=== PATIENT | female | born 1925 | race Caucasian/White ===

== ENCOUNTER 2017-01-14 08:10 | Observation (INO) | payer MEDICARE, OTHER ==
[~2017-01-14] VITALS: Ht 160 cm; Wt 56.9 kg
[~2017-01-14 08:10] MED LIST: BRIM.2%O OU; CITA-48 PO; DORZ1SOL2 OD; ENOX40P SQ; LEVO.05 PO; METO50TA PO; QUET300 PO; SENN8.6T15 PO; TRAV0.00 EACH EYE
[2017-01-14 08:18] VITALS: BP 173/107; PULSE 89; RESP 16; O2SAT 99
[2017-01-14] MEDS ORDERED: ONDANSETRON ODT 4 MG TAB PO ONE (08:45)
[2017-01-14] MEDS ORDERED: oxyCODONE/ACETAMINOPHEN 5 MG/325 MG TAB PO ONE (08:45)
[2017-01-14] MEDS ORDERED: CRANCAP2 PO (09:06)
[2017-01-14] MEDS ORDERED: LEVO75TA3 PO (09:06)
[2017-01-14] MEDS ORDERED: DORZ2SOL15 EACH EYE (09:06)
[2017-01-14] MEDS ORDERED: LATA0.002 EACH EYE (09:06)
[2017-01-14] MEDS ORDERED: CLON0.2D T-DERMAL (09:06)
[2017-01-14] MEDS ORDERED: BRIM0.2S4 EACH EYE (09:06)
[2017-01-14] MEDS ORDERED: TYLE325T PO ×2 (09:06)
[2017-01-14] MEDS ORDERED: DICL50TA PO (09:06)
[2017-01-14] MEDS ORDERED: HYDR-3133 PO (09:06)
[2017-01-14] MEDS ORDERED: MELA5 PO (09:06)
[2017-01-14] MEDS ORDERED: SENN8.6T36 PO (09:06)
[2017-01-14] MEDS ORDERED: CELE40TA PO (09:06)
[2017-01-14] MEDS ORDERED: LORA-392 PO (09:06)
[2017-01-14] MEDS ORDERED: METO100T PO (09:06)
[2017-01-14] MEDS ORDERED: FERR325T18 PO (09:06)
[2017-01-14] MEDS ORDERED: CLON.1 PO (09:06)
[2017-01-14] MEDS ORDERED: DULC10SU3 RECTAL (09:06)
[2017-01-14] MEDS ORDERED: REST15CA PO (09:06)
--- NOTE | 2017-01-14 09:08 | PD ---
HPI Chief Complaint: Fall Time Seen by Provider: 08:24 Travel History International Travel<30 days: No Contact w/Intl Traveler<30days: No Traveled to known affect area: No History of Present Illness HPI Patient is an 89-year-old female from [facility], presents to the emergency room with complaints of mechanical fall. Patient reports that she was trying to use the restroom today, reports that she fell forward today and landed on her knees as well as her right shoulder. Patient complains of pain to her right arm as well as her right knee. Patient reports that she did hit her head, denies loss of consciousness. Patient currently is not on any anticoagulants. Patient with no chest pain or shortness of breath at this time. She with no abdominal pain, nausea or vomiting. Patient also denies pelvic pain. PFSH Past Medical History Arthritis: Yes (HANDS) Asthma: No Autoimmune Disease: No Anxiety: Yes Heart Rhythm Problems: No Cancer: No Cardiovascular Problems: Yes High Cholesterol: No Chest Pain: No Congestive Heart Failure: No COPD: No Cerebrovascular Accident: No Diabetes: No Endocrine: Yes GERD: No Glaucoma: Yes Genitourinary: Yes (URINARY INCONTINENCE, UTI'S) Headaches: Yes Hiatal Hernia: No Hypertension: Yes Immune Disorder: No Kidney Stones: No Musculoskeletal: Yes Neurologic: Yes Psychiatric: Yes Reproductive: No Respiratory: Yes Migraines: Yes Seizures: No Shingles: Yes Sleep Apnea: No Thyroid Disease: Yes (HYPOTHYROIDISM) Ulcer: No Menopausal: Yes : 3 Para: 3 Past Surgical History Abdominal Surgery: No AICD: No Arteriovenous Shunt: No Cardiac Surgery: No Eye Surgery: Yes (IMPLANT, CATARACTS) Genitourinary Surgery: No Gynecologic Surgery: No Insulin Pump: No Joint Replacement: Yes Oral Surgery: No Pacemaker: No Thoracic Surgery: No Other Surgery: Yes Social History Alcohol Use: No Tobacco Use: No (QUIT IN HER LATE FORTIES: SMOKED FOR ONE YEAR ONLY) Substance Use: No Allergies-Medications (Allergen,Severity, Reaction): Coded Allergies: codeine (Unverified Allergy, Intermediate, Nausea/Vomiting, 01/14/17) nitrofurantoin (Unverified Allergy, Unknown, chest pain, 01/14/17) penicillin G (Unverified Adverse Reaction, Intermediate, headache, ) Reported Meds & Prescriptions Reported Meds & Active Scripts Active Reported Brimonidine Opth Drops (Brimonidine Tartrate) 0.2% Soln 1 Drop EACH EYE BID Latanoprost Opth Drops (Latanoprost) 0.005% Drops 1 Drop EACH EYE HS Refrigerate until opened. Dorzolamide-Timolol Opth Drops 22.3-6.8 Mg/Ml Soln 1 Drop EACH EYE BID Dulcolax Supp (Bisacodyl) 10 Mg Supp 10 Mg RECTAL DAILY PRN Tylenol (Acetaminophen) 325 Mg Tab 650 Mg PO Q4H PRN Tylenol (Acetaminophen) 325 Mg Tab 325 Mg PO Q4H PRN Senna-Tabs (Sennosides) 8.6 Mg Tab 2 Tab PO BID Restoril (Temazepam) 15 Mg Cap 15 Mg PO HS PRN Metoprolol Tartrate 100 Mg Tab 100 Mg PO BID Melatonin 5 Mg Tab 5 Mg PO HS Levothyroxine (Levothyroxine Sodium) 75 Mcg Tab 75 Mcg PO DAILY Hydroxyzine HCl 25 Mg Tab 25 Mg PO BID Ferrous Sulfate 325 Mg (65 Mg Iron) Tablet 325 Mg PO BIDPC Cranberry Urinary Comfort (Vitamins C & E) 1 Cap 1 Cap PO DAILY Clonidine 168 HR Patch (Clonidine HCl) 0.2 Mg/24 Hr Patch 1 Patch T-DERMAL Q7D Celexa (Citalopram Hydrobromide) 40 Mg Tab 40 Mg PO DAILY Catapres (Clonidine) 0.1 Mg Tab 0.1 Mg PO BID PRN Diclofenac Potassium 50 Mg Tab 50 Mg PO TID PRN Ativan (Lorazepam) 0.5 Mg Tab 0.25 Mg PO Q8H PRN Review of Systems General / Constitutional: No: Fever Eyes: No: Visual changes HENT: No: Headaches Cardiovascular: No: Chest Pain or Discomfort Respiratory: No: Shortness of Breath Gastrointestinal: No: Abdominal Pain Genitourinary: No: Dysuria Musculoskeletal: Positive: Limited ROM, Pain Skin: No Rash Neurologic: No: Weakness Psychiatric: No: Depression Endocrine: No: Polydipsia Hematologic/Lymphatic: No: Easy Bruising Physical Exam Narrative GENERAL: Moderate distress SKIN: Focused skin assessment warm/dry. HEAD: Normocephalic. Patient with abrasion to nasal bridge EYES: Pupils equal and round. No scleral icterus. No injection or drainage. ENT: No nasal bleeding or discharge. Mucous membranes pink and moist. NECK: Trachea midline. No JVD. CARDIOVASCULAR: Regular rate and rhythm. No murmur appreciated. RESPIRATORY: No accessory muscle use. Clear to auscultation. Breath sounds equal bilaterally. GASTROINTESTINAL: Abdomen soft, non-tender, nondistended. Hepatic and splenic margins not palpable. Pelvis is stable MUSCULOSKELETAL:. No clubbing. No cyanosis. No edema. Patient with pain to the right shoulder, right humerus, right elbow, right forearm, unable to range of motion her upper extremity due to pain. There is no obvious deformities or open fractures, pulses intact, neurovascular intact. LUE: Patient with no obvious fractures, no obvious deformities, patient does have pain with range of motion to her left elbow, pulses intact, neurovascularly intact. Left lower extremity: Patient with normal range of motion to left hip, left knee , left ankle, no obvious fractures, pulses intact, neurovascular intact Right lower extremity: Patient with normal range of motion to right hip, pain with range of motion to right knee, normal range of motion to left ankle, no obvious open fractures, pulses intact, neurovascularly intact. NEUROLOGICAL: Awake and alert. No obvious cranial nerve deficits. Motor grossly within normal limits. Normal speech. PSYCHIATRIC: Appropriate mood and affect; insight and judgment normal. Data Data Last Documented VS Vital Signs Date Time Temp Pulse Resp B/P (MAP) Pulse Ox O2 Delivery O2 Flow Rate FiO2 01/14/17 12:28 17 01/14/17 10: 92 143/64 (90) 98 Room Air Orders Orders Chest, Single Ap (01/14/17 08:24) Pelvis, Ap Only (Routine) (01/14/17 08:24) Ct Brain W/O Iv Contrast(Rout) (01/14/17 08:24) Ct Cerv Spine W/O Contrast (01/14/17 08:24) Oxycodone-Acetamin 5-325 Mg (Percocet (01/14/17 08:45) Humerus (Min 2vws) (01/14/17 ) Knee, Complete (4vws) (01/14/17 ) Ondansetron Odt (Zofran Odt) (01/14/17 08:45) Shoulder, Limited(2vws) (01/14/17 ) Elbow, Limited (Ap&Lat) (01/14/17 ) Elbow, Limited (Ap&Lat) (01/14/17 ) Basic Metabolic Panel (Bmp) (01/14/17 09:50) Complete Blood Count With Diff (01/14/17 09:50) Prothrombin Time / Inr (Pt) (01/14/17 09:50) Act Partial Throm Time (Ptt) (01/14/17 09:50) Iv Access Insert/Monitor (01/14/17 09:50) Ecg Monitoring (01/14/17 09:50) Morphine Inj (Morphine Inj) (01/14/17 10:00) Oximetry (01/14/17 09:50) Knee, Ltd (1 Or 2vws) (01/14/17 ) Forearm, One View (01/14/17 08:38) Urinalysis - C+S If Indicated (01/14/17 12:12) Splinting (01/14/17 ) Canvas Knee Splint (Cks) (01/14/17 ) Canvas Knee Splint (Cks) (01/14/17 ) Morphine Inj (Morphine Inj) (01/14/17 12:45) Consult Orthopedic (01/14/17 ) Admit Order (Ed Use Only) (01/14/17 12:39) Labs Laboratory Tests Test 01/14/17 10:10 01/14/17 12:18 White Blood Count 10.4 TH/MM3 Red Blood Count 3.61 MIL/MM3 Hemoglobin 11.7 GM/DL Hematocrit 34.5 % Mean Corpuscular Volume 95.4 FL Mean Corpuscular Hemoglobin 32.5 PG Mean Corpuscular Hemoglobin Concent 34.0 % Red Cell Distribution Width 12.6 % Platelet Count 294 TH/MM3 Mean Platelet Volume 6.6 FL Neutrophils (%) (Auto) 76.2 % Lymphocytes (%) (Auto) 14.5 % Monocytes (%) (Auto) 4.7 % Eosinophils (%) (Auto) 4.1 % Basophils (%) (Auto) 0.5 % Neutrophils # (Auto) 7.9 TH/MM3 Lymphocytes # (Auto) 1.5 TH/MM3 Monocytes # (Auto) 0.5 TH/MM3 Eosinophils # (Auto) 0.4 TH/MM3 Basophils # (Auto) 0.1 TH/MM3 CBC Comment DIFF FINAL Differential Comment Prothrombin Time 10.7 SEC Prothromb Time International Ratio 1.0 RATIO Activated Partial Thromboplast Time 25.3 SEC Blood Urea Nitrogen 22 MG/DL Creatinine 0.94 MG/DL Random Glucose 115 MG/DL Calcium Level 9.0 MG/DL Sodium Level 135 MEQ/L Potassium Level 4.3 MEQ/L Chloride Level 106 MEQ/L Carbon Dioxide Level 21.8 MEQ/L Anion Gap 7 MEQ/L Estimat Glomerular Filtration Rate 56 ML/MIN Urine Color LIGHT-YELLOW Urine Turbidity HAZY Urine pH 6.5 Urine Specific [place] 1.011 Urine Protein NEG mg/dL Urine Glucose (UA) NEG mg/dL Urine Ketones NEG mg/dL Urine Occult Blood NEG Urine Nitrite POS Urine Bilirubin NEG Urine Urobilinogen LESS THAN 2.0 MG/DL Urine Leukocyte Esterase LARGE Urine RBC LESS THAN 1 /hpf Urine WBC 47 /hpf Urine Squamous Epithelial Cells 1 /hpf Urine Transitional Epithelial Cells <1 /hpf Urine Bacteria MANY /hpf Urine Hyaline Casts 1 /lpf Microscopic Urinalysis Comment CULTURE INDICATED MDM Medical Decision Making Medical Screen Exam Complete: Yes Emergency Medical Condition: Yes Medical Record Reviewed: Yes Interpretation(s) Vital Signs Date Time Temp Pulse Resp B/P (MAP) Pulse Ox O2 Delivery O2 Flow Rate FiO2 01/14/17 08:18 89 16 173/107 (129) 99 Differential Diagnosis Differential includes shoulder fracture, elbow fracture, forearm fracture, knee fracture/sprain, ICH vs contusion vs abrasion Narrative Course [facility]. Patient currently is not on anticoagulation, no loss of consciousness. Patient currently complaining of right arm pain. Given that she did fall in her head, CT of the head and neck ordered. X-ray of the right arm ordered as well as her left elbow and right knee. Plan to give a dose of Percocet for pain. Vital Signs Date Time Temp Pulse Resp B/P (MAP) Pulse Ox O2 Delivery O2 Flow Rate FiO2 01/14/17 12:28 17 01/14/17 11:30 17 01/14/17 10:17 92 16 143/64 (90) 98 Room Air 01/14/17 08:18 89 16 173/107 (129) 99 CBC & BMP Diagram 01/14/17 10:10 Calcium Level 9.0 Last Impressions Radius/Ulna X-Ray 01/14/17 0838 Signed Impressions: Service Date/Time: Saturday, January 14, 2017 10:38 - CONCLUSION: Distal forearm is intact. Francois Erickson MD FACR Pelvis X-Ray 01/14/17823 Signed Impressions: Service Date/Time: Saturday, January 14, 2017 09:33 - CONCLUSION: Undermineralized bones with old fractures of the left superior and inferior pubic rami. No acute fracture is identified. Reuben Chanel MD Head CT 01/14/17823 Signed Impressions: Service Date/Time: Saturday, January 14, 2017 11:09 - CONCLUSION: 1. Stable chronic changes of symmetric cortical atrophy and mild periventricular small vessel ischemic demyelination. 2. Nothing acute. Cole Castle MD Chest X-Ray 01/14/17823 Signed Impressions: Service Date/Time: Saturday, January 14, 2017 09:34 - CONCLUSION: 1. Stable appearance of the chest with right apical capping and minimal atelectasis/scarring of the left hemidiaphragm. 2. No acute infiltrate or fracture. 3. Dextroscoliosis of the thoracolumbar spine. Cole Castle MD Cervical Spine CT 01/14/17823 Signed Impressions: Service Date/Time: Saturday, January 14, 2017 11:11 - CONCLUSION: 1. No fracture or dislocation. 2. Multilevel degenerative changes. Darci Richardson Jr., MD Shoulder X-Ray 01/14/17 0000 Signed Impressions: Service Date/Time: Saturday, January 14, 2017 09:26 - CONCLUSION: Comminuted fracture of the proximal humerus. Cole Castle MD Knee X-Ray 01/14/17 Signed Impressions: Service Date/Time: Saturday, January 14, 2017 10:42 - CONCLUSION: Nondisplaced patella fracture. Francois Erickson MD FACR Knee X-Ray 01/14/17 0000 Signed Impressions: Service Date/Time: Saturday, January 14, 2017 09:35 - CONCLUSION: Nondisplaced patellar fracture, marked osteopenia. Francois Erickson MD FACR Humerus X-Ray 01/14/17 0000 Signed Impressions: Service Date/Time: Saturday, January 14, 2017 09:23 - CONCLUSION: Comminuted fracture with some displacement of the fracture fragments involving the proximal humerus. Cole Castle MD Elbow X-Ray 01/14/17 0000 Signed Impressions: Service Date/Time: Saturday, January 14, 2017 09:27 - CONCLUSION: Fracture as above. Francois Erickson MD FACR Elbow X-Ray 01/14/17 0000 Signed Impressions: Service Date/Time: Saturday, January 14, 2017 09:43 - CONCLUSION: Marked osteopenia otherwise negative. Francois Erickson MD FACR patient with multiple fx's will require admission case reviewed with Dr. Feldman who accepts pt to service case reviewed with Dr. Martin who request Ct of right elbow as well as splint - splint has already been placed. Diagnosis Primary Impression: Humerus fracture Additional Impressions: Elbow fracture, right Patellar fracture Admitting Information Admitting Physician Requests: Admit Mayela Menchaca DO Jan 14, 2017 09:08
[2017-01-14] MEDS ORDERED: MORPHINE SULFATE 2 MG/ML INJ IV PUSH ONE ×2 (10:00→12:45)
[2017-01-14 10:17] VITALS: BP 143/64; PULSE 92; RESP 16; O2SAT 98
--- NOTE | 2017-01-14 10:18 | RADRPT ---
EXAM DATE/TIME: 01/14/2017 09:33 [facility] COMPARISON: No previous studies available for comparison. INDICATIONS : Pelvic pain after falling in her bathroom. MEDICAL HISTORY : Cardiovascular disease. SURGICAL HISTORY : None. ENCOUNTER: Initial ACUITY: 1 day PAIN SCORE: 5/10 LOCATION: pelvis FINDINGS: AP view of the pelvis demonstrates no acute fracture or dislocation. There old healed fractures of th e left superior and inferior pubic rami. Bones are undermineralized. No soft tissue abnormality is id entified. CONCLUSION: Undermineralized bones with old fractures of the left superior and inferior pubic rami. No acute frac ture is identified. Reuben Chanel MD on January 14, 2017 at 10:15 Board Certified Radiologist. This report was verified electronically.
--- NOTE | 2017-01-14 10:24 | RADRPT ---
EXAM DATE/TIME: 01/14/2017 09:34 [facility] COMPARISON: CHEST SINGLE AP, December 13, 2015, 21:14. INDICATIONS : Shortness of breath. Fell in her bathroom. MEDICAL HISTORY : Cardiovascular disease. SURGICAL HISTORY : None. ENCOUNTER: Initial ACUITY: 1 day PAIN SCORE: 0/10 LOCATION: Bilateral cranial FINDINGS: A single view of the chest demonstrates the lungs to be symmetrically aerated without evidence of mas s, infiltrate or effusion. Stable scarring of the left hemidiaphragm and calcified pleural capping o n the right. No effusions The cardiomediastinal contours are unremarkable. Osseous structures are in tact with a stable dextroscoliosis of the thoracolumbar spine. CONCLUSION: 1. Stable appearance of the chest with right apical capping and minimal atelectasis/scarring of the l eft hemidiaphragm. 2. No acute infiltrate or fracture. 3. Dextroscoliosis of the thoracolumbar spine. Cole Castle MD on January 14, 2017 at 10:20 Board Certified Radiologist. This report was verified electronically.
--- NOTE | 2017-01-14 10:30 | RADRPT ---
EXAM DATE/TIME: 01/14/2017 09:23 [facility] COMPARISON: No previous studies available for comparison. INDICATIONS : Fell today in her bathroom. MEDICAL HISTORY : None. SURGICAL HISTORY : None. ENCOUNTER: Initial ACUITY: 1 day PAIN SCORE: 10/10 LOCATION: Right humerus FINDINGS: Two view examination of the right humerus demonstrates a comminuted fracture of the proximal humerus with some displacement of the fracture fragments. Due to limited positioning, I can not determine if there is intra-articular extension. CONCLUSION: Comminuted fracture with some displacement of the fracture fragments involving the proximal lee giacomo. Cole Castle MD on January 14, 2017 at 10:26 Board Certified Radiologist. This report was verified electronically.
--- NOTE | 2017-01-14 10:31 | RADRPT ---
EXAM DATE/TIME: 01/14/2017 09:26 [facility] COMPARISON: No previous studies available for comparison. INDICATIONS : Right shoulder pain after falling in bathroom. MEDICAL HISTORY : Cardiovascular disease. SURGICAL HISTORY : None. ENCOUNTER: Initial ACUITY: 1 day PAIN SCORE: 10/10 LOCATION: Right shoulder FINDINGS: Two view examination of the right shoulder demonstrates comminuted fracture of the proximal humerus w ith some displacement of the fracture fragments. Due to limited positioning, I cannot determine if th ere is intra-articular extension. CONCLUSION: Comminuted fracture of the proximal humerus. Cole Castle MD on January 14, 2017 at 10:28 Board Certified Radiologist. This report was verified electronically.
[2017-01-14 10:41] LABS: AUTOMATED NEUTROPHIL # 7.9 TH/MM3 (1.8-7.7); BASOPHIL # 0.1 TH/MM3 (0-0.2); BASOPHIL % 0.5 % (0.0-2.0); EOSINOPHIL # 0.4 TH/MM3 (0-0.4); EOSINOPHIL % 4.1 % (0.0-4.0); HEMATOCRIT 34.5 % (35.0-46.0); HEMO FLAGS DIFF FINAL; LYMPH % 14.5 % (9.0-44.0); LYMPHOCYTE # 1.5 TH/MM3 (1.0-4.8); MEAN CELL VOLUME 95.4 FL (80.0-100.0); MEAN CORPUSCULAR HEMOGLOBIN 32.5 PG (27.0-34.0); MONO % 4.7 % (0.0-8.0); NEUT % 76.2 % (16.0-70.0); PLATELET COUNT 294 TH/MM3 (150-450); RED BLOOD COUNT 3.61 MIL/MM3 (4.00-5.30); RED CELL DISTRIBUTION WIDTH 12.6 % (11.6-17.2); WHITE BLOOD COUNT 10.4 TH/MM3 (4.0-11.0)
--- NOTE | 2017-01-14 10:45 | RADRPT ---
EXAM DATE/TIME: 01/14/2017 09:27 [facility] COMPARISON: No previous studies available for comparison. INDICATIONS : Fell today in the bathroom MEDICAL HISTORY : None. SURGICAL HISTORY : None. ENCOUNTER: Initial ACUITY: 1 day PAIN SCORE: 10/10 LOCATION: Right elbow FINDINGS: Subchondral fracture right humerus with moderate angulation. CONCLUSION: Fracture as above. Francois Erickson MD FACR on January 14, 2017 at 10:43 Board Certified Radiologist. This report was verified electronically.
--- NOTE | 2017-01-14 10:45 | RADRPT ---
EXAM DATE/TIME: 01/14/2017 09:35 [facility] COMPARISON: No previous studies available for comparison. INDICATIONS : Right knee pain after falling in bathroom. MEDICAL HISTORY : Cardiovascular disease. SURGICAL HISTORY : None. ENCOUNTER: Initial ACUITY: 1 day PAIN SCORE: 3/10 LOCATION: Right knee FINDINGS: Four view examination of the right knee demonstrates no evidence of fracture or dislocation. Bony mi neralization is normal. The articular surfaces are intact. Degenerative changes in the patellofemor al compartment with nondisplaced patellar fracture.. CONCLUSION: Nondisplaced patellar fracture, marked osteopenia. Francois Erickson MD FACR on January 14, 2017 at 10:43 Board Certified Radiologist. This report was verified electronically.
--- NOTE | 2017-01-14 10:46 | RADRPT ---
EXAM DATE/TIME: 01/14/2017 09:43 [facility] COMPARISON: No previous studies available for comparison. INDICATIONS : Fell in the bathroom today. MEDICAL HISTORY : None. SURGICAL HISTORY : None. ENCOUNTER: Initial ACUITY: 1 day PAIN SCORE: Non-responsive. LOCATION: Left elbow FINDINGS: Two view examination of the left elbow demonstrates no soft tissue swelling, joint effusion, fracture or dislocation. CONCLUSION: Marked osteopenia otherwise negative. Francois Erickson MD FACR on January 14, 2017 at 10:44 Board Certified Radiologist. This report was verified electronically.
[2017-01-14 10:56] LABS: APTT (PATIENT) 25.3 SEC (24.3-30.1); BICARBONATE 21.8 MEQ/L (21.0-32.0); POTASSIUM 4.3 MEQ/L (3.5-5.1); PROTHROMBIN TIME - PATIENT 10.7 SEC (9.8-11.6)
--- NOTE | 2017-01-14 11:12 | RADRPT ---
EXAM DATE/TIME: 01/14/2017 10:38 [facility] COMPARISON: No previous studies available for comparison. INDICATIONS : Fell in the bathroom today. MEDICAL HISTORY : None. SURGICAL HISTORY : None. ENCOUNTER: Initial ACUITY: 1 day PAIN SCORE: Non-responsive. LOCATION: Right fprearm FINDINGS: Bones are osteopenic. Distal forearm is intact. Subcondylar humeral fracture is poorly demonstrated on this view. CONCLUSION: Distal forearm is intact. Francois Erickson MD FACR on January 14, 2017 at 11:09 Board Certified Radiologist. This report was verified electronically.
--- NOTE | 2017-01-14 11:17 | RADRPT ---
EXAM DATE/TIME: 01/14/2017 10:42 [facility] COMPARISON: No previous studies available for comparison. INDICATIONS : Fell in the bathroom today MEDICAL HISTORY : None. SURGICAL HISTORY : None. ENCOUNTER: Initial ACUITY: 1 day PAIN SCORE: Non-responsive. LOCATION: Left knee FINDINGS: Nondisplaced patellar fracture. Distal femur and proximal tibia are intact. CONCLUSION: Nondisplaced patella fracture. Francois Erickson MD FACR on January 14, 2017 at 11:10 Board Certified Radiologist. This report was verified electronically.
--- NOTE | 2017-01-14 11:36 | RADRPT ---
EXAM DATE/TIME: 01/14/2017 11:09 [facility] COMPARISON: CT BRAIN W/O CONTRAST, December 19, 2015, 18:44. INDICATIONS : Fall today RADIATION DOSE: 56.35 CTDIvol (mGy) MEDICAL HISTORY : Hypertension. SURGICAL HISTORY : None. ENCOUNTER: Initial ACUITY: 1 day PAIN SCALE: 10/10 LOCATION: cranial TECHNIQUE: Multiple contiguous axial images were obtained of the head. Using automated exposure control and adj ustment of the mA and/or kV according to patient size, radiation dose was kept as low as reasonably a chievable to obtain optimal diagnostic quality images. DICOM format image data is available electro nically for review and comparison. FINDINGS: CEREBRUM: The ventricles are normal for age. Diffuse, symmetric and stable cortical atrophy. Periventricular a reas of diminished attenuation around the anterior horns of the lateral ventricles are also stable in character is thickened some small vessel ischemic demyelination. No evidence of midline shift, mass lesion, hemorrhage or acute infarction. No extra-axial fluid collections are seen. POSTERIOR FOSSA: The cerebellum and brainstem are intact. The 4th ventricle is midline. The cerebellopontine angle i s unremarkable. EXTRACRANIAL: The visualized portion of the orbits is intact. SKULL: The calvaria is intact. No evidence of skull fracture. CONCLUSION: 1. Stable chronic changes of symmetric cortical atrophy and mild periventricular small vessel ischemi c demyelination. 2. Nothing acute. Cole Castle MD on January 14, 2017 at 11:33 Board Certified Radiologist. This report was verified electronically.
--- NOTE | 2017-01-14 12:04 | RADRPT ---
EXAM DATE/TIME: 01/14/2017 11:11 [facility] COMPARISON: No previous studies available for comparison. INDICATIONS : Trauma; fall, neck pain. RADIATION DOSE: 37.28 CTDIvol (mGy) MEDICAL HISTORY : Hypertension. SURGICAL HISTORY : None. ENCOUNTER: Initial ACUITY: 1 day PAIN SCALE: 3/10 LOCATION: Bilateral neck TECHNIQUE: Volumetric scanning of the cervical spine was performed. Multiplanar reconstructions in the sagittal, coronal and oblique axial planes were performed. Using automated exposure control and adjustment o f the mA and/or kV according to patient size, radiation dose was kept as low as reasonably achievable to obtain optimal diagnostic quality images. DICOM format image data is available electronically f or review and comparison. FINDINGS: VERTEBRAE: Normal vertebral body height. ALIGNMENT: No evidence of subluxation. C2-C3: There is a mild central bulge. No abutment of the cord or central canal stenosis. Neural foramina are patent bilaterally. C3-C4: A mild central bulge. No abutment of the cord or central canal stenosis. Bony uncovertebral hypertrop hy without significant neural foraminal narrowing. C4-C5: Disc space narrowing with mild broad-based disc bulge. No abutment of the cord or central canal steno sis. Neural foramina are patent bilaterally. C5-C6: A broad-based disc osteophyte complex eccentric to the right without central canal stenosis. Narrowin g of the right lateral recess. Left lateral recess is patent. Mild narrowing of the neural foramina b ilaterally. C6-C7: The bony spinal canal is normal in size. No evidence of disc bulge or herniation. The neural forami na are bilaterally patent. C7-T1: The bony spinal canal is normal in size. No evidence of disc bulge or herniation. The neural forami na are bilaterally patent. CONCLUSION: 1. No fracture or dislocation. 2. Multilevel degenerative changes. Darci Richardson Jr., MD on January 14, 2017 at 11:57 Board Certified Radiologist. This report was verified electronically.
[2017-01-14 12:57] LABS: BACTERIA, URINE MANY /hpf; BLOOD, URINE NEG (NEG); GLUCOSE,URINE NEG (NEG); HYALINE CAST, URINE 1 /lpf (RARE); KETONE, URINE NEG (NEG); NITRITE,URINE POS (NEG); PH, URINE 6.5 (5.0-8.5); SQUAMOUS EPITHELIAL CELL URINE 1 /hpf (0-5); TRANSITIONAL EPI CELLS, URINE <1 /hpf; URINE COLOR LIGHT-YELLOW (YELLW/STRAW)
[2017-01-14 13:00] LABS: COMMENT (UR) CULTURE INDICATED; CULTURE IF INDICATED CULTURE INDICATED
[2017-01-14] MEDS ORDERED: NALOXONE HCL 0.4 MG/ML AMP IV PUSH PRN (14:45)
[2017-01-14] MEDS ORDERED: ACETAMINOPHEN 325 MG TAB PO PRN (14:45)
[2017-01-14] MEDS ORDERED: MAGNESIUM HYDROXIDE SUSP 30 ML CUP PO PRN (14:45)
[2017-01-14] MEDS ORDERED: BISACODYL 10 MG SUPP RECTAL PRN (14:45)
[2017-01-14] MEDS ORDERED: SENNOSIDES 8.6 MG TAB PO PRN (14:45)
[2017-01-14] MEDS ORDERED: LACTULOSE SYRUP 20 GM/30 ML CUP PO PRN (14:45)
[2017-01-14] MEDS ORDERED: ONDANSETRON HCL 4 MG/2 ML VIAL IVP PRN (14:45)
--- NOTE | 2017-01-14 16:11 | HHI.HP ---
HPI Service [facility] Primary Care Physician Unknown Admission Diagnosis Acute pain: humerus fx, elbow fx, b/l patellar fx Diagnoses: (1) Fall (2) Glaucoma (3) Patellar fracture (4) Humerus fracture (5) Elbow fracture, right Chief Complaint: Fall Travel History International Travel<30 Days: No Contact w/Intl Traveler <30 Da: No Traveled to Known Affected Are: No History of Present Illness Written by Maty Arellano, acting as scribe for Dr. Feldman on 01/14/17 at 16:04. Ms. Lundberg is an 89-year-old female with a known medical history glaucoma and anxiety who presented to the ED post fall. Patient seen and examined in room, daughter at bedside. Patient currently lives at a snf and reportedly was using the restroom today and fell, hitting her right shoulder and landed on her knees. Patient states she does not remember the event well, nor was her daughter present during the fall. There is report that she hit her head but patient does not recall. No reports of loss of consciousness. Does admit to slight dizziness and lightheadedness. Denies any recent illness including fever , chills, chest pain, cough, shortness of breath, abdominal pain, nausea, vomiting, diarrhea or dysuria. Review of Systems Constitutional: DENIES: Fever, Chills, Dizziness Respiratory: DENIES: Cough, Shortness of breath Cardiovascular: DENIES: Chest pain, Syncope Gastrointestinal: DENIES: Abdominal pain, Constipation, Diarrhea, Nausea, Vomiting Musculoskeletal: COMPLAINS OF: Joint pain Neurologic: COMPLAINS OF: Poor Balance Psychiatric: COMPLAINS OF: Anxiety Except as stated in HPI: all other systems reviewed are Neg Past Family Social History Past Medical History Arthritis Anxiety Hypertension Hypothyroidism Past Surgical History Bilateral cataracts, implants Pelvic surgery 2016 Ankle pins Reported Medications Active Reported Brimonidine Opth Drops (Brimonidine Tartrate) 0.2% Soln 1 Drop EACH EYE BID Latanoprost Opth Drops (Latanoprost) 0.005% Drops 1 Drop EACH EYE HS Refrigerate until opened. Dorzolamide-Timolol Opth Drops 22.3-6.8 Mg/Ml Soln 1 Drop EACH EYE BID Dulcolax Supp (Bisacodyl) 10 Mg Supp 10 Mg RECTAL DAILY PRN Tylenol (Acetaminophen) 325 Mg Tab 650 Mg PO Q4H PRN Tylenol (Acetaminophen) 325 Mg Tab 325 Mg PO Q4H PRN Senna-Tabs (Sennosides) 8.6 Mg Tab 2 Tab PO BID Restoril (Temazepam) 15 Mg Cap 15 Mg PO HS PRN Metoprolol Tartrate 100 Mg Tab 100 Mg PO BID Melatonin 5 Mg Tab 5 Mg PO HS Levothyroxine (Levothyroxine Sodium) 75 Mcg Tab 75 Mcg PO DAILY Hydroxyzine HCl 25 Mg Tab 25 Mg PO BID Ferrous Sulfate 325 Mg (65 Mg Iron) Tablet 325 Mg PO BIDPC Cranberry Urinary Comfort (Vitamins C & E) 1 Cap 1 Cap PO DAILY Clonidine 168 HR Patch (Clonidine HCl) 0.2 Mg/24 Hr Patch 1 Patch T-DERMAL Q7D Celexa (Citalopram Hydrobromide) 40 Mg Tab 40 Mg PO DAILY Catapres (Clonidine) 0.1 Mg Tab 0.1 Mg PO BID PRN Diclofenac Potassium 50 Mg Tab 50 Mg PO TID PRN Ativan (Lorazepam) 0.5 Mg Tab 0.25 Mg PO Q8H PRN Allergies: Coded Allergies: codeine (Unverified Allergy, Intermediate, Nausea/Vomiting, 01/14/17) nitrofurantoin (Unverified Allergy, Unknown, chest pain, 01/14/17) penicillin G (Unverified Adverse Reaction, Intermediate, headache, ) Active Ordered Medications Current Medications Medications (Trade) Dose Ordered Sig/Helen Route Start Time Stop Time Status Last Admin (NS Flush) 2 ml UNSCH PRN IV FLUSH 01/14/17 14:45 (NS Flush) 2 ml BID IV FLUSH 01/14/17 21:00 (Tylenol) 650 mg Q4H PRN PO 01/14/17 14:45 (Zofran Inj) 4 mg Q6H PRN IVP 01/14/17 14:45 (Heparin Inj) 5,000 units Q8H SQ 01/14/17 16:00 (Narcan Inj) 0.4 mg UNSCH PRN IV PUSH 01/14/17 14:45 (Veronique-Colace) 1 tab BID PO 01/14/17 21:00 (Milk Of Magnesia Liq) 30 ml Q12H PRN PO 01/14/17 14:45 (Senokot) 17.2 mg Q12H PRN PO 01/14/17 14:45 (Dulcolax Supp) 10 mg DAILY PRN RECTAL 01/14/17 14:45 (Lactulose Liq) 30 ml DAILY PRN PO 01/14/17 14:45 Family History Maternal medical history significant for uterine cancer. Social History Denies any current tobacco use. Denies any alcohol intake. Denies any illicit drug use. Physical Exam Vital Signs Vital Signs Date Time Temp Pulse Resp B/P (MAP) Pulse Ox O2 Delivery O2 Flow Rate FiO2 01/14/17 14:50 16 01/14/17 12:28 17 01/14/17 11:30 17 01/14/17 10:17 92 16 143/64 (90) 98 Room Air 01/14/17 08:18 89 16 173/107 (129) 99 Physical Exam GENERAL: This is a well-nourished, well-developed elderly female patient, lying in bed in no apparent distress. SKIN: No rashes. Warm and dry. Small nose abrasion noted, open to air, no drainage. HEAD: Atraumatic. Normocephalic. Pupils equal round and reactive. Extraocular motions intact. No scleral icterus. No injection or drainage. Nose without bleeding. Airway patent. NECK: Trachea midline. No JVD. Supple. CARDIOVASCULAR: Regular rate and rhythm without murmurs, gallops, or rubs. RESPIRATORY: Clear to auscultation. Breath sounds equal bilaterally. No wheezes , rales, or rhonchi. GASTROINTESTINAL: Abdomen soft, non-tender, nondistended. No guarding. MUSCULOSKELETAL: Extremities without clubbing, cyanosis, or edema. No joint tenderness, effusion, or edema noted. Right shoulder alejandra and dressing in place. NEUROLOGICAL: Awake and alert. Cranial nerves II through XII intact. Motor and sensory grossly within normal limits. Five out of 5 muscle strength in all muscle groups. Normal speech. Laboratory Laboratory Tests Test 01/14/17 10:10 01/14/17 12:18 White Blood Count 10.4 Red Blood Count 3.61 Hemoglobin 11.7 Hematocrit 34.5 Mean Corpuscular Volume 95.4 Mean Corpuscular Hemoglobin 32.5 Mean Corpuscular Hemoglobin Concent 34.0 Red Cell Distribution Width 12.6 Platelet Count 294 Mean Platelet Volume 6.6 Neutrophils (%) (Auto) 76.2 Lymphocytes (%) (Auto) 14.5 Monocytes (%) (Auto) 4.7 Eosinophils (%) (Auto) 4.1 Basophils (%) (Auto) 0.5 Neutrophils # (Auto) 7.9 Lymphocytes # (Auto) 1.5 Monocytes # (Auto) 0.5 Eosinophils # (Auto) 0.4 Basophils # (Auto) 0.1 CBC Comment DIFF FINAL Differential Comment Prothrombin Time 10.7 Prothromb Time International Ratio 1.0 Activated Partial Thromboplast Time 25.3 Blood Urea Nitrogen 22 Creatinine 0.94 Random Glucose 115 Calcium Level 9.0 Sodium Level 135 Potassium Level 4.3 Chloride Level 106 Carbon Dioxide Level 21.8 Anion Gap 7 Estimat Glomerular Filtration Rate 56 Urine Color LIGHT-YELLOW Urine Turbidity HAZY Urine pH 6.5 Urine Specific [place] 1.011 Urine Protein NEG Urine Glucose (UA) NEG Urine Ketones NEG Urine Occult Blood NEG Urine Nitrite POS Urine Bilirubin NEG Urine Urobilinogen LESS THAN 2.0 Urine Leukocyte Esterase LARGE Urine RBC LESS THAN 1 Urine WBC 47 Urine Squamous Epithelial Cells 1 Urine Transitional Epithelial Cells <1 Urine Bacteria MANY Urine Hyaline Casts 1 Microscopic Urinalysis Comment CULTURE INDICATED Date/Time Source Procedure Growth Status 01/14/17 12:18 Urine Clean Catch Urine Culture Pending Received Result Diagram: 01/14/17 1010 01/14/17 1010 Imaging Last Impressions Radius/Ulna X-Ray 01/14/17 0838 Signed Impressions: Service Date/Time: Saturday, January 14, 2017 10:38 - CONCLUSION: Distal forearm is intact. Francois Erickson MD FACR Pelvis X-Ray 01/14/17823 Signed Impressions: Service Date/Time: Saturday, January 14, 2017 09:33 - CONCLUSION: Undermineralized bones with old fractures of the left superior and inferior pubic rami. No acute fracture is identified. Reuben Chanel MD Head CT 01/14/17823 Signed Impressions: Service Date/Time: Saturday, January 14, 2017 11:09 - CONCLUSION: 1. Stable chronic changes of symmetric cortical atrophy and mild periventricular small vessel ischemic demyelination. 2. Nothing acute. Cole Castle MD Chest X-Ray 01/14/1724 Signed Impressions: Service Date/Time: Saturday, January 14, 2017 09:34 - CONCLUSION: 1. Stable appearance of the chest with right apical capping and minimal atelectasis/scarring of the left hemidiaphragm. 2. No acute infiltrate or fracture. 3. Dextroscoliosis of the thoracolumbar spine. Cole Castle MD Cervical Spine CT 01/14/1724 Signed Impressions: Service Date/Time: Saturday, January 14, 2017 11:11 - CONCLUSION: 1. No fracture or dislocation. 2. Multilevel degenerative changes. Darci Richardson Jr., MD Shoulder X-Ray 01/14/17 0000 Signed Impressions: Service Date/Time: Saturday, January 14, 2017 09:26 - CONCLUSION: Comminuted fracture of the proximal humerus. Cole Castle MD Knee X-Ray 01/14/17 0000 Signed Impressions: Service Date/Time: Saturday, January 14, 2017 10:42 - CONCLUSION: Nondisplaced patella fracture. Francois Erickson MD FACR Humerus X-Ray 01/14/17 0000 Signed Impressions: Service Date/Time: Saturday, January 14, 2017 09:23 - CONCLUSION: Comminuted fracture with some displacement of the fracture fragments involving the proximal humerus. Cole Castle MD Elbow X-Ray 01/14/17 0000 Signed Impressions: Service Date/Time: Saturday, January 14, 2017 09:27 - CONCLUSION: Fracture as above. Francois Erickson MD FACR Caprini VTE Risk Assessment Caprini VTE Risk Assessment: Mod/High Risk (score >= 2) Caprini Risk Assessment Model Point Value = 1 Point Value = 2 Point Value = 3 Point Value = 5 Age 41-60 Minor surgery BMI > 25 kg/m2 Swollen legs Varicose veins or History of unexplained or recurrent spontaneous Oral contraceptives or hormone replacement Sepsis (< 1 month) Serious lung disease, including pneumonia (< 1 month) Abnormal pulmonary function Acute myocardial infarction Congestive heart failure (< 1 month) History of inflammatory bowel disease Medical patient at bed rest Age 61-74 Arthroscopic surgery Major open surgery (> 45 min) Laparoscopic surgery (> 45 min) Malignancy Confined to bed (> 72 hours) Immobilizing plaster cast Central venous access Age >= 75 History of VTE Family history of VTE Factor V Leiden Prothrombin [id number] Lupus anticoagulant Anticardiolipin antibodies Elevated serum homocysteine Heparin-induced thrombocytopenia Other congenital or acquired thrombophilia Stroke (< 1 month) Elective arthroplasty Hip, pelvis, or leg fracture Acute spinal cord injury (< 1 month) Prophylaxis Regimen Total Risk Factor Score Risk Level Prophylaxis Regimen 0-1 Low Early ambulation 2 Moderate Order ONE of the following: *Sequential Compression Device (SCD) *Heparin 5000 units SQ BID 3-4 Higher Order ONE of the following medications: *Heparin 5000 units SQ TID *Enoxaparin/Lovenox 40 mg SQ daily (WT < 150 kg, CrCl > 30 mL/min) *Enoxaparin/Lovenox 30 mg SQ daily (WT < 150 kg, CrCl > 10-29 mL/min) *Enoxaparin/Lovenox 30 mg SQ BID (WT < 150 kg, CrCl > 30 mL/min) AND/OR *Sequential Compression Device (SCD) 5 or more Highest Order ONE of the following medications: *Heparin 5000 units SQ TID (Preferred with Epidurals) *Enoxaparin/Lovenox 40 mg SQ daily (WT < 150 kg, CrCl > 30 mL/min) *Enoxaparin/Lovenox 30 mg SQ daily (WT < 150 kg, CrCl > 10-29 mL/min) *Enoxaparin/Lovenox 30 mg SQ BID (WT < 150 kg, CrCl > 30 mL/min) AND *Sequential Compression Device (SCD) Assessment and Plan Assessment and Plan Ms. Lundberg is an 89-year-old female with a known medical history glaucoma and anxiety who presented to the ED post fall. Patient seen and examined in room, daughter at bedside. Patient currently lives at a snf and reportedly was using the restroom today and fell, hitting her right shoulder and landed on her knees. Patient states she does not remember the event well, nor was her daughter present during the fall. Right humerus fracture secondary to fall Right elbow fracture secondary to above Right patellar fracture secondary to above - Head CT reviewed and essentially unremarkable for acute changes, some stable chronic changes of symmetric cortical atrophy and mild periventricular small vessel ischemic demyelination. - Right humerus x-ray reviewed showing comminuted fracture with some displacement of the fracture fragments involving the proximal humerus. Right and left knee x-ray reviewed showing nondisplaced patellar fractures bilaterally. - Splint placed on right upper extremity. CT right elbow ordered, pending. - Control pain, Morphine IV given in ED. Morphine IV available PRN per pain scale. - Monitor for constipation with pain medication, Veronique-Colace ordered and schedule. - Orthopedic surgeon consulted, appreciate input for further treatment plan. DVT prophylaxis: SCDs. Heparin. Will hold tomorrow am dose in case orthopedic surgery wants to perform surgery. Maty Arellano Jan 14, 2017 16:11 Yael Feldman MD Jan 14, 2017 16:13
[2017-01-14] MEDS ORDERED: MORPHINE SULFATE 4 MG/ML INJ IV PUSH PRN (16:45)
[2017-01-14] MEDS ORDERED: ACETAMINOPHEN/HYDROcodone 325 MG/7.5 MG TAB PO PRN (16:45)
[2017-01-14] MEDS ORDERED: ACETAMINOPHEN/HYDROcodone 325 MG/5 MG TAB PO PRN (16:45)
[2017-01-14 16:54] VITALS: BP 106/64; PULSE 84; RESP 18; TEMP 96.5; O2SAT 100
--- NOTE | 2017-01-14 17:30 | RADRPT ---
EXAM DATE/TIME: 01/14/2017 16:03 [facility] COMPARISON: ELBOW LEFT LIMITED (AP & LAT), January 14, 2017, 9:43. INDICATIONS : Trauma, patient fell, right elbow fracture. RADIATION DOSE: 47.97 CTDIvol (mGy) MEDICAL HISTORY : Cardiovascular disease. Hypertension. SURGICAL HISTORY : None. ENCOUNTER: Initial ACUITY: 1 day PAIN SCALE: 10/10 LOCATION: Right elbow TECHNIQUE: Volumetric scanning of the elbow was performed. Using automated exposure control and adjustment of t he mA and/or kV according to patient size, radiation dose was kept as low as reasonably achievable to obtain optimal diagnostic quality images. DICOM format image data is available electronically for r eview and comparison. FINDINGS: There is an acute comminuted transcondylar fracture that is occult on the plain films. This fracture does extend to the articular surface with the ulna. No significant angulation or distraction is obser oli. There is no fracture seen involving the ulna or radius within their proximal aspects. CONCLUSION: 1. Acute comminuted transcondylar fracture with intra-articular extension. Darci Richardson Jr., MD on January 14, 2017 at 17:22 Board Certified Radiologist. This report was verified electronically.
[2017-01-14] MEDS: HEPARIN SODIUM - SQ 10,000 UNITS/ML VIAL SQ SCH ×2 (17:46→23:52)
[2017-01-14 19:00] VITALS: BP 98/64; PULSE 80; RESP 18; TEMP 97.7; O2SAT 92
[2017-01-14] MEDS: DOCUSATE SODIUM 50 MG/SENNA 8.6 MG TAB PO SCH (21:00)
[2017-01-14] MEDS: SODIUM CHLORIDE 0.9% FLUSH 10 ML FLUSH IV FLUSH SCH (21:00)
[2017-01-14] MEDS ORDERED: SODIUM CHLORID 0.9% 500 ML INJ 500 ML IV ONE (22:45)
[2017-01-14] MEDS ORDERED: ACETAMINOPHEN 325 MG TAB PO ONE (22:45)
[2017-01-14] MEDS: CIPROFLOXACIN 400 MG PREMIX 200 ML IV SCH (23:52)
[2017-01-15] VITALS (8 sets, daily range): BP systolic 89–138; BP diastolic 44–74; PULSE 86–106; RESP 16–17; TEMP 95.9–97; O2SAT 96–100
[2017-01-15] MEDS ORDERED: INSULIN HUMAN REGULAR 1,000 UNITS/10 ML VIAL SQ PRN (04:00)
[2017-01-15] MEDS ORDERED: CHLORHEXIDINE GLUCONATE 2 % 1 PACK (2 CLOTHS) TOPICAL PRN (04:00)
[2017-01-15] MEDS ORDERED: LACTATED RINGER'S 1000 ML IV PRN (04:00)
[2017-01-15] MEDS ORDERED: SODIUM CHLORID 0.9% 500 ML IV PRN (04:00)
[2017-01-15] MEDS ORDERED: POVIDONE IODINE 5% (ANTISEPSIS KIT) 4 APPLICATIONS EACH NARE PRN (04:00)
[2017-01-15] MEDS ORDERED: SODIUM CHLORID 0.9% 500 ML INJ 500 ML IV ONE (06:30)
--- NOTE | 2017-01-15 06:54 | PD.ORT.PN ---
Subjective Subjective Remarks Mechanical fall with some confusion. Poor historian Objective Vitals Vital Signs Date Time Temp Pulse Resp B/P (MAP) Pulse Ox O2 Delivery O2 Flow Rate FiO2 01/15/17 04:00 95.9 98 17 89/44 (59) 98 01/14/17 19:00 97.7 80 18 98/64 (75) 92 01/14/17 16:54 96.5 84 18 106/64 (78) 100 01/14/17 16:45 01/14/17 14:50 16 01/14/17 12:28 17 01/14/17 11:30 17 01/14/17 10:17 92 16 143/64 (90) 98 Room Air 01/14/17 08:18 89 16 173/107 (129) 99 I/O 01/14/17 01/14/17 01/14/17 01/15/17 01/15/17 01/15/17 07:00 15:00 23:00 07:00 15:00 23:00 Intake Total 480 ml 940 ml Balance 480 ml 940 ml Intake Oral 480 ml 240 ml IV Total 700 ml # Voids 0 1 # Bowel Movements 0 0 Result Diagram: 01/14/17 1010 01/14/17 1010 Other Results Laboratory Tests Test 01/14/17 10:10 Prothromb Time International Ratio 1.0 RATIO Prothrombin Time 10.7 SEC (9.8-11.6) Imaging Last 72 hours Impressions Radius/Ulna X-Ray 01/14/17837 Signed Impressions: Service Date/Time: Saturday, January 14, 2017 10:38 - CONCLUSION: Distal forearm is intact. Francois Erickson MD FACR Pelvis X-Ray 01/14/17823 Signed Impressions: Service Date/Time: Saturday, January 14, 2017 09:33 - CONCLUSION: Undermineralized bones with old fractures of the left superior and inferior pubic rami. No acute fracture is identified. Reuben Chanel MD Head CT 01/14/17823 Signed Impressions: Service Date/Time: Saturday, January 14, 2017 11:09 - CONCLUSION: 1. Stable chronic changes of symmetric cortical atrophy and mild periventricular small vessel ischemic demyelination. 2. Nothing acute. Cole Castle MD Chest X-Ray 10/18/17 0824 Signed Impressions: Service Date/Time: Saturday, January 14, 2017 09:34 - CONCLUSION: 1. Stable appearance of the chest with right apical capping and minimal atelectasis/scarring of the left hemidiaphragm. 2. No acute infiltrate or fracture. 3. Dextroscoliosis of the thoracolumbar spine. Cole Castle MD Cervical Spine CT 01/14/1724 Signed Impressions: Service Date/Time: Saturday, January 14, 2017 11:11 - CONCLUSION: 1. No fracture or dislocation. 2. Multilevel degenerative changes. Darci Richardson Jr., MD Upper Extremity CT 01/14/17 0000 Signed Impressions: Service Date/Time: Saturday, January 14, 2017 16:03 - CONCLUSION: 1. Acute comminuted transcondylar fracture with intra-articular extension. Darci Richardson Jr., MD Shoulder X-Ray 01/14/17 0000 Signed Impressions: Service Date/Time: Saturday, January 14, 2017 09:26 - CONCLUSION: Comminuted fracture of the proximal humerus. Cole Castle MD Knee X-Ray 01/14/17 0000 Signed Impressions: Service Date/Time: Saturday, January 14, 2017 10:42 - CONCLUSION: Nondisplaced patella fracture. Francois Erickson MD FACR Knee X-Ray 01/14/17 0000 Signed Impressions: Service Date/Time: Saturday, January 14, 2017 09:35 - CONCLUSION: Nondisplaced patellar fracture, marked osteopenia. Francois Erickson MD FACR Humerus X-Ray 01/14/17 0000 Signed Impressions: Service Date/Time: Saturday, January 14, 2017 09:23 - CONCLUSION: Comminuted fracture with some displacement of the fracture fragments involving the proximal humerus. Cole Castle MD Elbow X-Ray 01/14/17 0000 Signed Impressions: Service Date/Time: Saturday, January 14, 2017 09:27 - CONCLUSION: Fracture as above. Francois Erickson MD FACR Elbow X-Ray 01/14/17 0000 Signed Impressions: Service Date/Time: Saturday, January 14, 2017 09:43 - CONCLUSION: Marked osteopenia otherwise negative. Francois Erickson MD FACR Last 24 hours Impressions Radius/Ulna X-Ray 01/14/17837 Signed Impressions: Service Date/Time: Saturday, January 14, 2017 10:38 - CONCLUSION: Distal forearm is intact. Francois Erickson MD FACR Pelvis X-Ray 01/14/17823 Signed Impressions: Service Date/Time: Saturday, January 14, 2017 09:33 - CONCLUSION: Undermineralized bones with old fractures of the left superior and inferior pubic rami. No acute fracture is identified. Reuben Chanel MD Head CT 01/14/17823 Signed Impressions: Service Date/Time: Saturday, January 14, 2017 11:09 - CONCLUSION: 1. Stable chronic changes of symmetric cortical atrophy and mild periventricular small vessel ischemic demyelination. 2. Nothing acute. Cole Castle MD Chest X-Ray 01/14/17823 Signed Impressions: Service Date/Time: Saturday, January 14, 2017 09:34 - CONCLUSION: 1. Stable appearance of the chest with right apical capping and minimal atelectasis/scarring of the left hemidiaphragm. 2. No acute infiltrate or fracture. 3. Dextroscoliosis of the thoracolumbar spine. Cole Castle MD Cervical Spine CT 01/14/17823 Signed Impressions: Service Date/Time: Saturday, January 14, 2017 11:11 - CONCLUSION: 1. No fracture or dislocation. 2. Multilevel degenerative changes. Darci Richardson Jr., MD Objective Remarks Left upper extremity full range of motion neurovascular intact Right upper extremity: Long arm posterior splint in place. Pain to palpation over proximal humerus and elbow. Distally intact sensation and is able to fully extend her fingers and make a fist. Bilateral lower extremities no pain with hip or ankle range of motion. Intact sensation distally. Pain over bilateral patellas. Knee immobilizers in position Assessment & Plan Assessment and Plan Bilateral patella fractures nondisplaced Nonoperative treatment with knee immobilizers No range of motion of knees 50% weightbearing with assistance for transfers in knee immobilizers Right proximal and distal humerus fracture At this point we will continue to treat this nonoperatively. We will continue to maintain long-arm splint and we will have a sling and swath applied. We will have follow up x-rays in 2 weeks. If fracture displaces surgery may be necessary. Jalen Trevino Jr. Jan 15, 2017 06:54
[2017-01-15 06:59] LABS: AUTOMATED NEUTROPHIL # 5.9 TH/MM3 (1.8-7.7); BASOPHIL % 0.5 % (0.0-2.0); EOSINOPHIL # 0.1 TH/MM3 (0-0.4); EOSINOPHIL % 1.6 % (0.0-4.0); HEMATOCRIT 25.2 % (35.0-46.0); HEMO FLAGS DIFF FINAL; LYMPH % 16.5 % (9.0-44.0); LYMPHOCYTE # 1.3 TH/MM3 (1.0-4.8); MEAN CELL VOLUME 96.4 FL (80.0-100.0); MEAN CORPUSCULAR HGB CONC 34.3 % (32.0-36.0); MONO % 8.7 % (0.0-8.0); NEUT % 72.7 % (16.0-70.0); PLATELET COUNT 252 TH/MM3 (150-450); RED BLOOD COUNT 2.62 MIL/MM3 (4.00-5.30); RED CELL DISTRIBUTION WIDTH 12.6 % (11.6-17.2); WHITE BLOOD COUNT 8.1 TH/MM3 (4.0-11.0)
--- NOTE | 2017-01-15 07:13 | MB ---
cc: NILAM CABELLO DATE OF CONSULTATION 01/15/2017 DATE OF ADMISSION 01/14/2017 REASON FOR CONSULTATION 1. Right proximal humerus fracture. 2. Right distal humerus fracture. 3. Right patella fracture. 4. Left patella fracture. CONSULTING PHYSICIAN Dr. Feldman HIMANSHU Avila is an 89-year-old female who lives in a care home. She had a fall. She was going to the bathroom when she fell. She landed on her right side. She is a relatively poor historian and does not clearly recall the fall. She states that she had a fall last week and landed on her tail bone. She did hit her head, but denies loss of consciousness. She denies any syncope, dizziness or loss of consciousness. She complains of right shoulder pain, right elbow pain, and bilateral knee pain. PAST MEDICAL HISTORY ILLNESSES 1. Anxiety 2. Arthritis 3. Hypertension 4. Hypothyroidism SURGERIES 1. Cataract surgery 2. Pelvic surgery 3. Ankle ORIF MEDICATIONS Please see EMR for a complete list of inpatient medications. This was reviewed. ALLERGIES CODEINE, NITROFURANTOIN, AND PENICILLIN. FAMILY HISTORY Positive for uterine cancer in her mother. SOCIAL HISTORY The patient denies alcohol, tobacco or drug use. REVIEW OF SYSTEMS The patient denies headache, visual changes, neck pain, chest pain, shortness of breath, abdominal pain, nausea, vomiting, recent weight loss, fevers, chills, numbness or tingling of extremities. She complains of right shoulder pain, right elbow pain and bilateral knee pain. Pain is worse with movement. PHYSICAL EXAM The patient is a pleasant 89-year female. She is awake. She appears well-developed and well-nourished. VITAL SIGNS: Temperature 95.9, pulse 78, respirations 17, blood pressure 89/44, O2 sat 98% on room air. HEAD: The patient is normocephalic. EYES, EARS, NOSE AND THROAT: Pupils are equal. NECK: Soft, nontender. Trachea is midline. ABDOMEN: Soft, nontender, nondistended. EXTREMITIES: Examination of the left arm reveals no pain with shoulder, elbow or wrist motion. Skin is intact. Sensation is intact in the radial, ulnar, and median nerve distributions. Radial pulse is palpable. Examination of the right arm reveals pain and tenderness along her proximal humerus. She is tender to palpation over her distal humerus and elbow. She has pain with shoulder and elbow motion. She has intact sensation in all fingers. She has good cap refill in all fingers. Sensation is intact in all fingers. Examination of the left leg reveals no tenderness about her hip or ankle. She is tender to palpation over the patella. Calf and thigh compartments are soft. Sensation is intact in the left foot. Examination of the right leg reveals no tenderness around her hip or ankle. Sensation is intact to the right foot. She has good cap refill in her toes. Sensation is intact in the right foot. She is tender to palpation over the right patella. She has pain with knee range of motion bilaterally. X-RAYS X-rays of bilateral knees were reviewed. X-rays reveal minimally displaced bilateral patella fractures. X-rays of the right elbow were reviewed. X-rays reveal a mildly comminuted intra-articular right distal humerus fracture. The elbow joint is reduced. X-rays of right shoulder reveal a mildly displaced right proximal humerus fracture. IMPRESSION 1. Osteoporosis 2. Right proximal humerus fracture 3. Right distal humerus fracture 4. Right patella fracture 5. Left patella fracture PLAN Treatment options were discussed with the patient. At this point, the fracture is relatively well-aligned. I would recommend nonsurgical treatment of bilateral patella fractures and right proximal humerus fracture. I explained to her that her right distal humerus fracture is somewhat borderline. Given her advanced age and the fact of the fracture is relatively well-aligned, I would lean towards nonsurgical treatment. The patient is in agreement. She states that she would like to avoid surgery at all possible. I feel that is a reasonable plan given her activity level and age and bone quality. The patient will need to be non-weightbearing on her right arm. She will need to be in bilateral knee immobilizers. She will also need to use a right arm sling. All questions were answered. A mid-level provider in my office, nurse practitioner or PA, may see this patient on a follow-up basis and continue to implement the objective of this plan including: Starting or adjusting medications, injections of muscle, tendon, bursa or joints, cast application, orthotic or brace application, physical therapy, further radiographic studies including x-ray, MRI, CT, ultrasounds or bone scan, vascular studies, neurologic studies, or other specialist consultations, and proceeding with surgical management as appropriate. MD KENY Parham/TANI /6:43 AM /6:54 AM
[2017-01-15 07:26] LABS: POTASSIUM 4.3 MEQ/L (3.5-5.1)
[2017-01-15 07:27] LABS: BICARBONATE 22.1 MEQ/L (21.0-32.0)
[2017-01-15] MEDS ORDERED: ENOXAPARIN SODIUM 40 MG/0.4 ML SYRINGE SQ SCH (08:00)
[2017-01-15] MEDS: DOCUSATE SODIUM 50 MG/SENNA 8.6 MG TAB PO SCH ×2 (09:41→21:00)
[2017-01-15] MEDS: SODIUM CHLORIDE 0.9% FLUSH 10 ML FLUSH IV FLUSH SCH ×2 (09:42→21:00)
[2017-01-15] MEDS: CIPROFLOXACIN 400 MG PREMIX 200 ML IV SCH (11:46)
--- NOTE | 2017-01-15 15:13 | HHI.PR ---
Subjective Remarks Patient is completely confused today she is talking nonsense, noncoherent, however she was able to answer her full name Discussed with the nurse seems like she has been like this today No fever, blood pressure has been low patient was given 2 boluses overnight, will place her on maintenance, will repeat head CT to rule out any underlying bleeding after the fall Will monitor her kidney function Objective Vitals Vital Signs Date Time Temp Pulse Resp B/P (MAP) Pulse Ox O2 Delivery O2 Flow Rate FiO2 01/15/17 14:35 100 01/15/17 13:00 86 138/74 (95) 01/15/17 12:00 96.4 88 16 94/53 (67) 100 01/15/17 08:00 97.0 87 16 119/57 (77) 96 01/15/17 04:00 95.9 98 17 89/44 (59) 98 01/14/17 19:00 97.7 80 18 98/64 (75) 92 01/14/17 16:54 96.5 84 18 106/64 (78) 100 01/14/17 16:45 I/O 01/14/17 01/14/17 01/14/17 01/15/17 01/15/17 01/15/17 07:00 15:00 23:00 07:00 15:00 23:00 Intake Total 480 ml 940 ml 700 ml Balance 480 ml 940 ml 700 ml Intake Oral 480 ml 240 ml IV Total 700 ml 700 ml # Voids 0 1 # Bowel Movements 0 0 Result Diagram: 01/15/17 0628 01/15/17627 Objective Remarks GENERAL: Frail elderly lady, well-developed patient, in no apparent distress but confused SKIN: No rashes, warm and dry HEAD: Atraumatic. Normocephalic. EYES: Pupils equal round and reactive. Extraocular motions intact. No scleral icterus. ENT: Nose without bleeding, or drainage, Airway patent. NECK: Trachea midline. Supple CARDIOVASCULAR: Regular rate and rhythm without murmurs, gallops, or rubs. RESPIRATORY: Fair air entry bilaterally. No wheezes, rales, or rhonchi. GASTROINTESTINAL: Abdomen soft, non-tender, nondistended. Positive bowel sounds MUSCULOSKELETAL: Right upper extremity in splint and bilateral lower extremity in immobilizer NEUROLOGICAL: Awake and alert but confused. Moves all extremity. Normal speech.no focal neurological deficit A/P Problem List: (1) Fall ICD Code: W19.XXXA - Unspecified fall, initial encounter Status: Acute (2) Glaucoma ICD Code: H40.9 - Unspecified glaucoma Status: Acute (3) Patellar fracture ICD Code: S82.009A - Unspecified fracture of unspecified patella, initial encounter for closed fracture Status: Acute (4) Humerus fracture ICD Code: S42.309A - Unspecified fracture of shaft of humerus, unspecified arm , initial encounter for closed fracture Status: Acute (5) Elbow fracture, right ICD Code: S42.401A - Unspecified fracture of lower end of right humerus, initial encounter for closed fracture Status: Acute Assessment and Plan Ms. Lundberg is an 89-year-old female with a known medical history glaucoma and anxiety who presented to the ED post fall. Patient seen and examined in room, daughter at bedside. Patient currently lives at a residential and reportedly was using the restroom today and fell, hitting her right shoulder and landed on her knees. Patient states she does not remember the event well, nor was her daughter present during the fall. Acute confusion, change in mental status Hypotension EDSON mostly ATN ivf 1.5 8 are of normal saline change cipro to rocephin, since quinolone may cause change in mental status in elderly Inserted Brandt and monitor RIVAS, monitor BMP CT scan of the head to rule out any underlying bleeding after the fall Right humerus fracture secondary to fall Right elbow fracture secondary to above Right patellar fracture secondary to above - Head CT reviewed and essentially unremarkable for acute changes, some stable chronic changes of symmetric cortical atrophy and mild periventricular small vessel ischemic demyelination. - Right humerus x-ray reviewed showing comminuted fracture with some displacement of the fracture fragments involving the proximal humerus. Right and left knee x-ray reviewed showing nondisplaced patellar fractures bilaterally. - Splint placed on right upper extremity. CT right elbow ordered, pending. - Control pain, Morphine IV given in ED. Morphine IV available PRN per pain scale. - Monitor for constipation with pain medication, Veronique-Colace ordered and schedule. - Orthopedic also appreciated, in general nonsurgical specialty for the patellar and the proximal humerus, distal humerus may possibly need surgical intervention but that decision at this point is just to go with conservative DVT prophylaxis: SCDs. Heparin. Yael Feldman MD Jan 15, 2017 15:13
[2017-01-15] MEDS: cefTRIAXone INJ 1,000 MG in SODIUM CHLORIDE 0.9% INJ 100 ML IV SCH (16:05)
[2017-01-15] MEDS: SODIUM CHLOR 0.9% 1000 ML INJ 1,000 ML IV SCH (16:06)
[2017-01-15] MEDS: SODIUM CHLORIDE 0.9% FLUSH 10 ML FLUSH IV FLUSH PRN ×2 (16:08→17:37)
[2017-01-15] MEDS: MORPHINE SULFATE 4 MG/ML INJ IV PUSH PRN ×2 (16:08→17:37)
--- NOTE | 2017-01-15 17:49 | RADRPT ---
EXAM DATE/TIME: 01/15/2017 17:03 [facility] COMPARISON: CT BRAIN W/O CONTRAST, January 14, 2017, 11:09. INDICATIONS : Change in mental status after fall yesterday. RADIATION DOSE: 56.35 CTDIvol (mGy) MEDICAL HISTORY : Cardiovascular disease. Hypertension. Migraines. SURGICAL HISTORY : None. ENCOUNTER: Initial ACUITY: 1 day PAIN SCALE: 0/10 LOCATION: cranial TECHNIQUE: Multiple contiguous axial images were obtained of the head. Using automated exposure control and adj ustment of the mA and/or kV according to patient size, radiation dose was kept as low as reasonably a chievable to obtain optimal diagnostic quality images. DICOM format image data is available electro nically for review and comparison. FINDINGS: CEREBRUM: There is moderate generalized atrophy. Ventricles are normal in size. There is mild periventricular w harshal matter low attenuation. No evidence of midline shift, mass lesion, hemorrhage or acute infarcti on. No extra-axial fluid collections are seen. POSTERIOR FOSSA: The cerebellum and brainstem are intact. The 4th ventricle is midline. The cerebellopontine angle i s unremarkable. EXTRACRANIAL: Visualized sinuses are clear. SKULL: The calvaria is intact. No evidence of skull fracture. CONCLUSION: Stable noncontrast head CT. No acute intracranial abnormality is identified. There has been no change since yesterday's study. Reuben Chanel MD on January 15, 2017 at 17:44 Board Certified Radiologist. This report was verified electronically.
[2017-01-15] MEDS ORDERED: HEPARIN SODIUM - SQ 10,000 UNITS/ML VIAL SQ SCH (22:00)
[2017-01-16] VITALS (8 sets, daily range): BP systolic 96–185; BP diastolic 55–92; PULSE 95–122; RESP 16–17; TEMP 95.7–98.5; O2SAT 96–98
[2017-01-16] MEDS: HEPARIN SODIUM - SQ 10,000 UNITS/ML VIAL SQ SCH ×4 (00:50→23:59)
[2017-01-16] MEDS: SODIUM CHLOR 0.9% 1000 ML INJ 1,000 ML IV SCH (05:20)
[2017-01-16] MEDS ORDERED: NORC5TAB PO (06:50)
[2017-01-16] MEDS ORDERED: CALCTAB19 PO (06:50)
--- NOTE | 2017-01-16 06:54 | PD.ORT.PN ---
Subjective Subjective Remarks Mechanical fall with some confusion. Poor historian Objective Vitals Vital Signs Date Time Temp Pulse Resp B/P (MAP) Pulse Ox O2 Delivery O2 Flow Rate FiO2 01/16/17 04:00 96.5 95 16 137/75 (95) 98 01/16/17 00:00 96.8 120 17 151/75 (100) 98 01/15/17 22:00 106 01/15/17 19:00 96.3 103 17 115/64 (81) 99 01/15/17 16:00 96.2 92 16 127/74 (91) 99 01/15/17 14:35 100 01/15/17 13:00 86 138/74 (95) 01/15/17 12:00 96.4 88 16 94/53 (67) 100 01/15/17 08:00 97.0 87 16 119/57 (77) 96 I/O 01/15/17 01/15/17 01/15/17 01/16/17 01/16/17 01/16/17 07:00 15:00 23:00 07:00 15:00 23:00 Intake Total 940 ml 700 ml 560 ml 480 ml Balance 940 ml 700 ml 560 ml 480 ml Intake Oral 240 ml 560 ml 480 ml IV Total 700 ml 700 ml # Voids 1 4 3 # Bowel Movements 0 0 0 Result Diagram: 01/15/1762701/15/17627 Imaging Last 72 hours Impressions Radius/Ulna X-Ray 01/14/17837 Signed Impressions: Service Date/Time: Saturday, January 14, 2017 10:38 - CONCLUSION: Distal forearm is intact. Francois Erickson MD FACR Pelvis X-Ray 01/14/17823 Signed Impressions: Service Date/Time: Saturday, January 14, 2017 09:33 - CONCLUSION: Undermineralized bones with old fractures of the left superior and inferior pubic rami. No acute fracture is identified. Reuben Chanel MD Head CT 01/14/17823 Signed Impressions: Service Date/Time: Saturday, January 14, 2017 11:09 - CONCLUSION: 1. Stable chronic changes of symmetric cortical atrophy and mild periventricular small vessel ischemic demyelination. 2. Nothing acute. Cole Castle MD Chest X-Ray 01/14/17823 Signed Impressions: Service Date/Time: Saturday, January 14, 2017 09:34 - CONCLUSION: 1. Stable appearance of the chest with right apical capping and minimal atelectasis/scarring of the left hemidiaphragm. 2. No acute infiltrate or fracture. 3. Dextroscoliosis of the thoracolumbar spine. Cole Castle MD Cervical Spine CT 01/14/1724 Signed Impressions: Service Date/Time: Saturday, January 14, 2017 11:11 - CONCLUSION: 1. No fracture or dislocation. 2. Multilevel degenerative changes. Darci Richardson Jr., MD Upper Extremity CT 01/14/17 0000 Signed Impressions: Service Date/Time: Saturday, January 14, 2017 16:03 - CONCLUSION: 1. Acute comminuted transcondylar fracture with intra-articular extension. Darci Richardson Jr., MD Shoulder X-Ray 01/14/17 0000 Signed Impressions: Service Date/Time: Saturday, January 14, 2017 09:26 - CONCLUSION: Comminuted fracture of the proximal humerus. Cole Castle MD Knee X-Ray 01/14/17 0000 Signed Impressions: Service Date/Time: Saturday, January 14, 2017 10:42 - CONCLUSION: Nondisplaced patella fracture. Francois Erickson MD FACR Knee X-Ray 01/14/17 0000 Signed Impressions: Service Date/Time: Saturday, January 14, 2017 09:35 - CONCLUSION: Nondisplaced patellar fracture, marked osteopenia. Francois Erickson MD FACDiana Humerus X-Ray 01/14/17 0000 Signed Impressions: Service Date/Time: Saturday, January 14, 2017 09:23 - CONCLUSION: Comminuted fracture with some displacement of the fracture fragments involving the proximal humerus. Cole Castle MD Elbow X-Ray 01/14/17 0000 Signed Impressions: Service Date/Time: Saturday, January 14, 2017 09:27 - CONCLUSION: Fracture as above. Francois Erickson MD FACR Elbow X-Ray 01/14/17 0000 Signed Impressions: Service Date/Time: Saturday, January 14, 2017 09:43 - CONCLUSION: Marked osteopenia otherwise negative. Francois Erickson MD FACDiana Last 24 hours Impressions Radius/Ulna X-Ray 01/14/17837 Signed Impressions: Service Date/Time: Saturday, January 14, 2017 10:38 - CONCLUSION: Distal forearm is intact. Francois Erickson MD FACR Pelvis X-Ray 01/14/17823 Signed Impressions: Service Date/Time: Saturday, January 14, 2017 09:33 - CONCLUSION: Undermineralized bones with old fractures of the left superior and inferior pubic rami. No acute fracture is identified. Reuben Chanel MD Head CT 01/14/17823 Signed Impressions: Service Date/Time: Saturday, January 14, 2017 11:09 - CONCLUSION: 1. Stable chronic changes of symmetric cortical atrophy and mild periventricular small vessel ischemic demyelination. 2. Nothing acute. Cole Castle MD Chest X-Ray 01/14/17823 Signed Impressions: Service Date/Time: Saturday, January 14, 2017 09:34 - CONCLUSION: 1. Stable appearance of the chest with right apical capping and minimal atelectasis/scarring of the left hemidiaphragm. 2. No acute infiltrate or fracture. 3. Dextroscoliosis of the thoracolumbar spine. Cole Castle MD Cervical Spine CT 01/14/17823 Signed Impressions: Service Date/Time: Saturday, January 14, 2017 11:11 - CONCLUSION: 1. No fracture or dislocation. 2. Multilevel degenerative changes. Darci Richardson Jr., MD Objective Remarks Left upper extremity full range of motion neurovascular intact Right upper extremity: Long arm posterior splint in place. Pain to palpation over proximal humerus and elbow. Distally intact sensation and is able to fully extend her fingers and make a fist. Bilateral lower extremities no pain with hip or ankle range of motion. Intact sensation distally. Pain over bilateral patellas. Knee immobilizers in position Assessment & Plan Assessment and Plan Bilateral patella fractures nondisplaced Nonoperative treatment with knee immobilizers No range of motion of knees 50% weightbearing with assistance for transfers in knee immobilizers Right proximal and distal humerus fracture At this point we will continue to treat this nonoperatively. We will continue to maintain long-arm splint and we will have a sling and swath applied. We will have follow up x-rays in 2 weeks. If fracture displaces surgery may be necessary. ortho cleared for rehab Jaeln Trevino Jr. CESAR Jan 16, 2017 06:54
--- NOTE | 2017-01-16 07:36 | EKG ---
Date Performed: 01/15/2017 Time Performed: 05:35:56 PTAGE: 89 years EKG: Normal Sinus rhythm Early transition Nonspecific ST-T wave change which is new from the old tracing. Borderline ECG PREVIOUS TRACING : 12/24/2015 13.57 DOCTOR: Kt Rodriguez Interpretating Date/Time 01/16/2017 07:35:46
[2017-01-16] MEDS: SODIUM CHLORIDE 0.9% FLUSH 10 ML FLUSH IV FLUSH SCH ×2 (08:42→20:03)
[2017-01-16] MEDS: DOCUSATE SODIUM 50 MG/SENNA 8.6 MG TAB PO SCH ×2 (08:42→20:04)
[2017-01-16] MEDS ORDERED: ENOXAPARIN SODIUM 30 MG/0.3 ML SYRINGE SQ SCH (09:00)
[2017-01-16] MEDS ORDERED: ENALAPRILAT 1.25 MG/ML VIAL IV PUSH ONE (09:15)
[2017-01-16] MEDS ORDERED: cloNIDine HCL 0.1 MG TAB PO PRN (10:45)
--- NOTE | 2017-01-16 10:58 | HHI.PR ---
Subjective Remarks Patient still totally confused, talking, noncoherent, delirious Is cussed with the nurse, CT scan of the head was negative Will continue antibiotic to treat UTI, she cleared by ortho for discharge when medically cleared Objective Vitals Vital Signs Date Time Temp Pulse Resp B/P (MAP) Pulse Ox O2 Delivery O2 Flow Rate FiO2 01/16/17 08:00 95.7 115 17 185/89 (121) 98 01/16/17 04:00 96.5 95 16 137/75 (95) 98 01/16/17 00:00 96.8 120 17 151/75 (100) 98 01/15/17 22:00 106 01/15/17 19:00 96.3 103 17 115/64 (81) 99 01/15/17 16:00 96.2 92 16 127/74 (91) 99 01/15/17 14:35 100 01/15/17 13:00 86 138/74 (95) 01/15/17 12:00 96.4 88 16 94/53 (67) 100 I/O 01/15/17 01/15/17 01/15/17 01/16/17 01/16/17 01/16/17 07:00 15:00 23:00 07:00 15:00 23:00 Intake Total 940 ml 700 ml 560 ml 1510 ml Balance 940 ml 700 ml 560 ml 1510 ml Intake Oral 240 ml 560 ml 480 ml IV Total 700 ml 700 ml 1030 ml # Voids 1 4 3 # Bowel Movements 0 0 0 Result Diagram: 01/15/1728 01/15/17627 Objective Remarks GENERAL: Frail elderly lady, well-developed patient, in no apparent distress but confused SKIN: No rashes, warm and dry HEAD: Atraumatic. Normocephalic. EYES: Pupils equal round and reactive. Extraocular motions intact. No scleral icterus. ENT: Nose without bleeding, or drainage, Airway patent. NECK: Trachea midline. Supple CARDIOVASCULAR: Regular rate and rhythm without murmurs, gallops, or rubs. RESPIRATORY: Fair air entry bilaterally. No wheezes, rales, or rhonchi. GASTROINTESTINAL: Abdomen soft, non-tender, nondistended. Positive bowel sounds MUSCULOSKELETAL: Right upper extremity in splint and bilateral lower extremity in immobilizer NEUROLOGICAL: Awake and alert but confused. Moves all extremity. Normal speech.no focal neurological deficit A/P Problem List: (1) Fall ICD Code: W19.XXXA - Unspecified fall, initial encounter Status: Acute (2) Glaucoma ICD Code: H40.9 - Unspecified glaucoma Status: Acute (3) Patellar fracture ICD Code: S82.009A - Unspecified fracture of unspecified patella, initial encounter for closed fracture Status: Acute (4) Humerus fracture ICD Code: S42.309A - Unspecified fracture of shaft of humerus, unspecified arm , initial encounter for closed fracture Status: Acute (5) Elbow fracture, right ICD Code: S42.401A - Unspecified fracture of lower end of right humerus, initial encounter for closed fracture Status: Acute Assessment and Plan Ms. Lundberg is an 89-year-old female with a known medical history glaucoma and anxiety who presented to the ED post fall. Patient seen and examined in room, daughter at bedside. Patient currently lives at a correction and reportedly was using the restroom today and fell, hitting her right shoulder and landed on her knees. Patient states she does not remember the event well, nor was her daughter present during the fall. Acute confusion, change in mental status, ? Due to UTI Hypotension EDSON UTI with Escherichia coli ivf 1.5 are of normal saline change cipro to rocephin, since quinolone may cause change in mental status in elderly Inserted Brandt and monitor RIVAS, monitor BMP CT scan of the head to rule out any underlying bleeding after the fall Continue Rocephin. Urine culture positive for Escherichia coli Right humerus fracture secondary to fall Right elbow fracture secondary to above Right patellar fracture secondary to above - Head CT reviewed and essentially unremarkable for acute changes, some stable chronic changes of symmetric cortical atrophy and mild periventricular small vessel ischemic demyelination. - Right humerus x-ray reviewed showing comminuted fracture with some displacement of the fracture fragments involving the proximal humerus. Right and left knee x-ray reviewed showing nondisplaced patellar fractures bilaterally. - Splint placed on right upper extremity. CT right elbow ordered, pending. - Control pain, Morphine IV given in ED. Morphine IV available PRN per pain scale. - Monitor for constipation with pain medication, Veronique-Colace ordered and schedule. - Orthopedic also appreciated, in general nonsurgical specialty for the patellar and the proximal humerus, distal humerus may possibly need surgical intervention but that decision at this point is just to go with conservative DVT prophylaxis: SCDs. Heparin. Discharge Planning Once mental status improved with treating UTI Yael Feldman MD Jan 16, 2017 10:58
[2017-01-16] MEDS ORDERED: traMADol HCL 50 MG TAB PO PRN (11:00)
[2017-01-16] MEDS ORDERED: ENALAPRILAT 1.25 MG/ML VIAL IV PUSH PRN (11:00)
[2017-01-16] MEDS ORDERED: cloNIDine HCL 0.2 MG/24 HR PATCH T-DERMAL SCH (13:00)
[2017-01-16] MEDS: LEVOTHYROXINE SODIUM 75 MCG TAB PO SCH (13:30)
[2017-01-16] MEDS: SENNOSIDES 8.6 MG TAB PO SCH ×2 (13:31→20:04)
[2017-01-16] MEDS: DORZOLAMIDE/TIMOLOL OPTH SOLN 10 ML BTL EACH EYE SCH ×2 (13:31→20:03)
[2017-01-16] MEDS: METOPROLOL TARTRATE 100 MG TAB PO SCH ×2 (13:31→20:04)
[2017-01-16] MEDS: hydrOXYzine HCL 25 MG TAB PO SCH ×2 (13:31→20:04)
[2017-01-16] MEDS: cefTRIAXone INJ 1,000 MG in SODIUM CHLORIDE 0.9% INJ 100 ML IV SCH (16:05)
[2017-01-16] MEDS: MORPHINE SULFATE 2 MG/ML INJ IV PRN ×2 (16:06→19:58)
[2017-01-16] MEDS: BRIMONIDINE TARTRATE 0.2% OPHT SOLN 5 ML BTL EACH EYE SCH (20:03)
[2017-01-16] MEDS ORDERED: LATANOPROST 0.005% OPHT SOLN 2.5 ML BTL EACH EYE SCH (21:00)
[2017-01-17] VITALS: BP 101/50; PULSE 82; RESP 16; TEMP 96.6; O2SAT 100
[2017-01-17] MEDS: MORPHINE SULFATE 2 MG/ML INJ IV PRN (03:14)
[2017-01-17 04:00] VITALS: BP 125/61; PULSE 99; RESP 18; TEMP 96.4; O2SAT 95
[2017-01-17] MEDS: LEVOTHYROXINE SODIUM 75 MCG TAB PO SCH (05:27)
[2017-01-17 08:00] VITALS: BP 120/59; PULSE 111; RESP 18; TEMP 98.1; O2SAT 98
--- NOTE | 2017-01-17 08:42 | PD.ORT.PN ---
Subjective Subjective Remarks resting, no complaints. Objective Vitals Vital Signs Date Time Temp Pulse Resp B/P (MAP) Pulse Ox O2 Delivery O2 Flow Rate FiO2 01/17/17 04:00 96.4 99 18 125/61 (82) 95 01/17/17 00:00 96.6 82 16 101/50 (67) 100 01/16/17 22:15 98 21 01/16/17 20:50 98.5 99 16 106/55 (72) 96 01/16/17 20:03 100 Nasal Cannula 2.00 01/16/17 20:03 102 01/16/17 16:00 96.8 110 17 96/76 (83) 98 01/16/17 12:00 97.5 122 16 155/92 (113) 97 I/O 01/16/17 01/16/17 01/16/17 01/17/17 01/17/17 01/17/17 07:00 15:00 23:00 07:00 15:00 23:00 Intake Total 1510 ml 120 ml 650 ml 0 ml Balance 1510 ml 120 ml 650 ml 0 ml Intake Oral 480 ml 120 ml 120 ml 0 ml IV Total 1030 ml 530 ml # Voids 3 2 1 1 # Bowel Movements 0 0 0 1 Result Diagram: 01/15/1762701/15/17627 Imaging Last 72 hours Impressions Radius/Ulna X-Ray 01/14/17837 Signed Impressions: Service Date/Time: Saturday, January 14, 2017 10:38 - CONCLUSION: Distal forearm is intact. Francois Erickson MD FACR Pelvis X-Ray 01/14/17823 Signed Impressions: Service Date/Time: Saturday, January 14, 2017 09:33 - CONCLUSION: Undermineralized bones with old fractures of the left superior and inferior pubic rami. No acute fracture is identified. Reuben Chanel MD Head CT 01/14/17823 Signed Impressions: Service Date/Time: Saturday, January 14, 2017 11:09 - CONCLUSION: 1. Stable chronic changes of symmetric cortical atrophy and mild periventricular small vessel ischemic demyelination. 2. Nothing acute. Cole Castle MD Chest X-Ray 01/14/17823 Signed Impressions: Service Date/Time: Saturday, January 14, 2017 09:34 - CONCLUSION: 1. Stable appearance of the chest with right apical capping and minimal atelectasis/scarring of the left hemidiaphragm. 2. No acute infiltrate or fracture. 3. Dextroscoliosis of the thoracolumbar spine. Cole Castle MD Cervical Spine CT 01/14/17 0824 Signed Impressions: Service Date/Time: Saturday, January 14, 2017 11:11 - CONCLUSION: 1. No fracture or dislocation. 2. Multilevel degenerative changes. Darci Richardson Jr., MD Upper Extremity CT 01/14/17 0000 Signed Impressions: Service Date/Time: Saturday, January 14, 2017 16:03 - CONCLUSION: 1. Acute comminuted transcondylar fracture with intra-articular extension. Darci Richardson Jr., MD Shoulder X-Ray 01/14/17 0000 Signed Impressions: Service Date/Time: Saturday, January 14, 2017 09:26 - CONCLUSION: Comminuted fracture of the proximal humerus. Cole Castle MD Knee X-Ray 01/14/17 0000 Signed Impressions: Service Date/Time: Saturday, January 14, 2017 10:42 - CONCLUSION: Nondisplaced patella fracture. Francois Erickson MD FACR Knee X-Ray 01/14/17 0000 Signed Impressions: Service Date/Time: Saturday, January 14, 2017 09:35 - CONCLUSION: Nondisplaced patellar fracture, marked osteopenia. Francois Erickson MD FACR Humerus X-Ray 01/14/17 0000 Signed Impressions: Service Date/Time: Saturday, January 14, 2017 09:23 - CONCLUSION: Comminuted fracture with some displacement of the fracture fragments involving the proximal humerus. Cole Castle MD Elbow X-Ray 01/14/17 0000 Signed Impressions: Service Date/Time: Saturday, January 14, 2017 09:27 - CONCLUSION: Fracture as above. Francois Erickson MD FACR Elbow X-Ray 01/14/17 0000 Signed Impressions: Service Date/Time: Saturday, January 14, 2017 09:43 - CONCLUSION: Marked osteopenia otherwise negative. Francois Erickson MD FACR Last 24 hours Impressions Radius/Ulna X-Ray 01/14/17 0838 Signed Impressions: Service Date/Time: Saturday, January 14, 2017 10:38 - CONCLUSION: Distal forearm is intact. Francois Erickson MD FACR Pelvis X-Ray 01/14/17823 Signed Impressions: Service Date/Time: Saturday, January 14, 2017 09:33 - CONCLUSION: Undermineralized bones with old fractures of the left superior and inferior pubic rami. No acute fracture is identified. Reuben Chanel MD Head CT 01/14/17823 Signed Impressions: Service Date/Time: Saturday, January 14, 2017 11:09 - CONCLUSION: 1. Stable chronic changes of symmetric cortical atrophy and mild periventricular small vessel ischemic demyelination. 2. Nothing acute. Cole Castle MD Chest X-Ray 01/14/17823 Signed Impressions: Service Date/Time: Saturday, January 14, 2017 09:34 - CONCLUSION: 1. Stable appearance of the chest with right apical capping and minimal atelectasis/scarring of the left hemidiaphragm. 2. No acute infiltrate or fracture. 3. Dextroscoliosis of the thoracolumbar spine. Cole Castle MD Cervical Spine CT 01/14/17823 Signed Impressions: Service Date/Time: Saturday, January 14, 2017 11:11 - CONCLUSION: 1. No fracture or dislocation. 2. Multilevel degenerative changes. Darci Richardson Jr., MD Objective Remarks Left upper extremity full range of motion neurovascular intact Right upper extremity: Long arm posterior splint in place. Pain to palpation over proximal humerus and elbow. Distally intact sensation and is able to fully extend her fingers and make a fist. Bilateral lower extremities no pain with hip or ankle range of motion. Intact sensation distally. Pain over bilateral patellas. Knee immobilizers in position Assessment & Plan Assessment and Plan Bilateral patella fractures nondisplaced Nonoperative treatment with knee immobilizers No range of motion of knees 50% weightbearing with assistance for transfers in knee immobilizers Right proximal and distal humerus fracture At this point we will continue to treat this nonoperatively. We will continue to maintain long-arm splint and we will have a sling and swath applied. We will have follow up x-rays in 2 weeks. If fracture displaces surgery may be necessary. ortho cleared for rehab UTI - abx per Marcelo Myers Jan 17, 2017 08:42
[2017-01-17] MEDS: HEPARIN SODIUM - SQ 10,000 UNITS/ML VIAL SQ SCH (08:56)
[2017-01-17] MEDS: SENNOSIDES 8.6 MG TAB PO SCH (08:57)
[2017-01-17] MEDS: hydrOXYzine HCL 25 MG TAB PO SCH (08:57)
[2017-01-17] MEDS: METOPROLOL TARTRATE 100 MG TAB PO SCH (08:57)
[2017-01-17] MEDS: DOCUSATE SODIUM 50 MG/SENNA 8.6 MG TAB PO SCH (08:57)
[2017-01-17] MEDS: DORZOLAMIDE/TIMOLOL OPTH SOLN 10 ML BTL EACH EYE SCH (08:58)
[2017-01-17] MEDS: SODIUM CHLORIDE 0.9% FLUSH 10 ML FLUSH IV FLUSH SCH (08:58)
[2017-01-17] MEDS: BRIMONIDINE TARTRATE 0.2% OPHT SOLN 5 ML BTL EACH EYE SCH (08:59)
[2017-01-17] MEDS ORDERED: CITALOPRAM HYDROBROMIDE 40 MG TAB PO SCH (09:00)
[2017-01-17 11:02] VITALS: O2SAT 98
[2017-01-17] MEDS ORDERED: CEFU1TAB18 PO (11:20)
--- NOTE | 2017-01-17 11:27 | HHI.PR ---
Subjective Remarks Patient sitting on the chair awake alert looks comfortable however she still confused and talking fluently but noncoherent She told me "who are you, you thing and that anyone up with me under the ground " Patient has been on Rocephin for UTI, I discussed with the nurse who had her before and she told me this is kind of her baseline, will try to put calls for her family or jail to discuss that, if this is the case then patient probably stable to be discharged back [facility] Objective Vitals Vital Signs Date Time Temp Pulse Resp B/P (MAP) Pulse Ox O2 Delivery O2 Flow Rate FiO2 01/17/17 11:02 98 21 01/17/17 08:00 98.1 111 18 120/59 (79) 98 01/17/17 04:00 96.4 99 18 125/61 (82) 95 01/17/17 00:00 96.6 82 16 101/50 (67) 100 01/16/17 22:15 98 21 01/16/17 20:50 98.5 99 16 106/55 (72) 96 01/16/17 20:03 100 Nasal Cannula 2.00 01/16/17 20:03 102 01/16/17 16:00 96.8 110 17 96/76 (83) 98 01/16/17 12:00 97.5 122 16 155/92 (113) 97 I/O 01/16/17 01/16/17 01/16/17 01/17/17 01/17/17 01/17/17 07:00 15:00 23:00 07:00 15:00 23:00 Intake Total 1510 ml 120 ml 650 ml 0 ml Balance 1510 ml 120 ml 650 ml 0 ml Intake Oral 480 ml 120 ml 120 ml 0 ml IV Total 1030 ml 530 ml # Voids 3 2 1 1 # Bowel Movements 0 0 0 1 Result Diagram: 01/15/1762701/15/17627 Objective Remarks GENERAL: Frail elderly lady, well-developed patient, in no apparent distress but confused SKIN: No rashes, warm and dry HEAD: Atraumatic. Normocephalic. EYES: Pupils equal round and reactive. Extraocular motions intact. No scleral icterus. ENT: Nose without bleeding, or drainage, Airway patent. NECK: Trachea midline. Supple CARDIOVASCULAR: Regular rate and rhythm without murmurs, gallops, or rubs. RESPIRATORY: Fair air entry bilaterally. No wheezes, rales, or rhonchi. GASTROINTESTINAL: Abdomen soft, non-tender, nondistended. Positive bowel sounds MUSCULOSKELETAL: Right upper extremity in splint and bilateral lower extremity in immobilizer NEUROLOGICAL: Awake and alert but confused. Moves all extremity. Normal speech.no focal neurological deficit A/P Problem List: (1) Fall ICD Code: W19.XXXA - Unspecified fall, initial encounter Status: Acute (2) Glaucoma ICD Code: H40.9 - Unspecified glaucoma Status: Acute (3) Patellar fracture ICD Code: S82.009A - Unspecified fracture of unspecified patella, initial encounter for closed fracture Status: Acute (4) Humerus fracture ICD Code: S42.309A - Unspecified fracture of shaft of humerus, unspecified arm , initial encounter for closed fracture Status: Acute (5) Elbow fracture, right ICD Code: S42.401A - Unspecified fracture of lower end of right humerus, initial encounter for closed fracture Status: Acute Assessment and Plan Ms. Lundberg is an 89-year-old female with a known medical history glaucoma and anxiety who presented to the ED post fall. Patient seen and examined in room, daughter at bedside. Patient currently lives at a jail and reportedly was using the restroom today and fell, hitting her right shoulder and landed on her knees. Patient states she does not remember the event well, nor was her daughter present during the fall. Acute confusion, change in mental status, ? Due to UTI Hypotension EDSON UTI with Escherichia coli ivf 1.5 are of normal saline change cipro to rocephin, since quinolone may cause change in mental status in elderly Inserted Brandt and monitor RIVAS, monitor BMP CT scan of the head to rule out any underlying bleeding after the fall Continue Rocephin. Urine culture positive for Escherichia coli switched to Ceftin at discharge Awaiting BMP today which is pending Right humerus fracture secondary to fall Right elbow fracture secondary to above Right patellar fracture secondary to above - Head CT reviewed and essentially unremarkable for acute changes, some stable chronic changes of symmetric cortical atrophy and mild periventricular small vessel ischemic demyelination. - Right humerus x-ray reviewed showing comminuted fracture with some displacement of the fracture fragments involving the proximal humerus. Right and left knee x-ray reviewed showing nondisplaced patellar fractures bilaterally. - Splint placed on right upper extremity. CT right elbow ordered, pending. - Control pain, Morphine IV given in ED. Morphine IV available PRN per pain scale. - Monitor for constipation with pain medication, Veronique-Colace ordered and schedule. - Orthopedic also appreciated, in general nonsurgical specialty for the patellar and the proximal humerus, distal humerus may possibly need surgical intervention but that decision at this point is just to go with conservative DVT prophylaxis: SCDs. Heparin. Discharge Planning Looks like patient mental status is at baseline by discussing with nurse, patient get confused in different environment setting Yael Feldman MD Jan 17, 2017 11:27
--- NOTE | 2017-01-17 11:33 | HHI.DS ---
Discharge Summary Admission Date Jan 14, 2017 at 12:42 Discharge Date: Jan 17, 2017 Admitting Diagnosis Acute pain: humerus fx, elbow fx, b/l patellar fx (1) Fall ICD Code: W19.XXXA - Unspecified fall, initial encounter Status: Acute (2) Glaucoma ICD Code: H40.9 - Unspecified glaucoma Status: Acute (3) Patellar fracture ICD Code: S82.009A - Unspecified fracture of unspecified patella, initial encounter for closed fracture Status: Acute (4) Humerus fracture ICD Code: S42.309A - Unspecified fracture of shaft of humerus, unspecified arm , initial encounter for closed fracture Status: Acute (5) Elbow fracture, right ICD Code: S42.401A - Unspecified fracture of lower end of right humerus, initial encounter for closed fracture Status: Acute Procedures none Brief History - From Admission Written by Maty Arellano, acting as scribe for Dr. Feldman on 01/14/17 at 16:04. Ms. Lundberg is an 89-year-old female with a known medical history glaucoma and anxiety who presented to the ED post fall. Patient seen and examined in room, daughter at bedside. Patient currently lives at a long-term and reportedly was using the restroom today and fell, hitting her right shoulder and landed on her knees. Patient states she does not remember the event well, nor was her daughter present during the fall. There is report that she hit her head but patient does not recall. No reports of loss of consciousness. Does admit to slight dizziness and lightheadedness. Denies any recent illness including fever , chills, chest pain, cough, shortness of breath, abdominal pain, nausea, vomiting, diarrhea or dysuria. CBC/BMP: 01/15/17 0628 01/15/17 0628 Significant Findings Laboratory Tests Test 01/14/17 12:18 01/15/17 06:28 01/16/17 11:22 01/16/17 11:41 Urine Turbidity HAZY (CLEAR) Urine Nitrite POS (NEG) Urine Leukocyte Esterase LARGE (NEG) Urine WBC 47 /hpf (0-5) Urine Bacteria MANY /hpf (NONE) Red Blood Count 2.62 MIL/MM3 (4.00-5.30) Hemoglobin 8.6 GM/DL (11.6-15.3) Hematocrit 25.2 % (35.0-46.0) Mean Platelet Volume 6.6 FL (7.0-11.0) Neutrophils (%) (Auto) 72.7 % (16.0-70.0) Monocytes (%) (Auto) 8.7 % (0.0-8.0) Blood Urea Nitrogen 31 MG/DL (7-18) Creatinine 1.55 MG/DL (0.50-1.00) Random Glucose 133 MG/DL (74-106) Calcium Level 8.2 MG/DL (8.5-10.1) Sodium Level 132 MEQ/L (136-145) Estimat Glomerular Filtration Rate 31 ML/MIN (>89) Ammonia LESS THAN 10 MCMOL/L PE at Discharge GENERAL: Frail elderly lady, well-developed patient, in no apparent distress but confused SKIN: No rashes, warm and dry HEAD: Atraumatic. Normocephalic. EYES: Pupils equal round and reactive. Extraocular motions intact. No scleral icterus. ENT: Nose without bleeding, or drainage, Airway patent. NECK: Trachea midline. Supple CARDIOVASCULAR: Regular rate and rhythm without murmurs, gallops, or rubs. RESPIRATORY: Fair air entry bilaterally. No wheezes, rales, or rhonchi. GASTROINTESTINAL: Abdomen soft, non-tender, nondistended. Positive bowel sounds MUSCULOSKELETAL: Right upper extremity in splint and bilateral lower extremity in immobilizer NEUROLOGICAL: Awake and alert but confused. Moves all extremity. Normal speech.no focal neurological deficit Hospital Course 89 years old female admitted due to fall she was found to have , Right humerus fracture secondary to fall, Right elbow fracture secondary to above, Right patellar fracture secondary to fall, ortho consulted recommending splinting conservative management for now to follow up later on distal humeral fracture may or may not need surgical intervention, ortho will follow outpatient. Patient found to have also confusion, change in mental status, ? Due to UTI earlier she does look Hypotension, EDSON , UTI with Escherichia coli Patient initially started on iv fluid and cipro then changed to rocephin, since quinolone may cause change in mental status in elderly Inserted Brandt and monitor RIVAS, monitor BMP CT scan of the head to rule out any underlying bleeding after the fall Urine culture positive for Escherichia coli switched to Ceftin at discharge patient seems to have a baseline of dementia versus confusion due to change in environment, discussed with the nurse and with the case management, will DC to rehabilitation half-way to follow up as an outpatient [id number] encounter performed with the patient on discharge day, as well as physical exam, summary of hospitalization course and postdischarge plan has been D/W the patient. D/W nurse D/W community case manager. Discharge medications reviewed and printed and signed, post discharge follow up visit with PCP and other specialist as well as Brief hospital course and discharge summary has been placed. Pt Condition on Discharge: Stable Discharge Disposition: Discharge to SNF Discharge Time: > 30 minutes Discharge Instructions DIET: Follow Instructions for: Heart Healthy Diet Activities you can perform: See Additionl Instruction Follow up Referrals: Orthopedics - 2 Weeks @ [facility] with Madhav Reid MD New Medications: Calcium Carbonate-Vitamin D (Calcium 600+D 200) 600-200 Mg-Unit Tab 1 TAB PO BID for Nutritional Supplement, #90 TAB 0 Refills Cefuroxime (Ceftin) 250 Mg Tab 250 MG PO BID for uti for 7 Days, #14 TAB Hydrocodone-Acetaminophen (Pledger) 5-325 mg Tab 1 TAB PO Q4H PRN for PAIN, #40 TAB 0 Refills Continued Medications: Acetaminophen (Tylenol) 325 Mg Tab 325 MG PO Q4H PRN for FEVER, TAB 0 Refills Bisacodyl Supp (Dulcolax Supp) 10 Mg Supp 10 MG RECTAL DAILY PRN for CONSTIPATION, #12 SUPP 0 Refills Brimonidine Opth Drops (Brimonidine Opth Drops) 0.2% Soln 1 DROP EACH EYE BID for Intraocular pressure, #1 BOTTLE 0 Refills Citalopram (Celexa) 40 Mg Tab 40 MG PO DAILY for Control Depression, #30 TAB 0 Refills Clonidine (Catapres) 0.1 Mg Tab 0.1 MG PO BID PRN for SBP>160, DBP>90, #60 TAB 0 Refills Clonidine 168 HR Patch (Clonidine 168 HR Patch) 0.2 Mg/24 Hr Patch 1 PATCH T-DERMAL Q7D for Blood Pressure Management, #4 PATCH 0 Refills Diclofenac Potassium (Diclofenac Potassium) 50 Mg Tab 50 MG PO TID PRN for headache, #90 TAB 0 Refills Dorzolamide-Timolol Opth Drops (Dorzolamide-Timolol Opth Drops) 22.3-6.8 Mg/Ml Soln 1 DROP EACH EYE BID for Glaucoma, BOTTLE 0 Refills Ferrous Sulfate (Ferrous Sulfate) 325 Mg (65 Mg Iron) Tablet 325 MG PO BIDPC for Nutritional Supplement, #60 TAB 0 Refills Hydroxyzine HCl (Hydroxyzine HCl) 25 Mg Tab 25 MG PO BID, TAB 0 Refills Latanoprost Opth Drops (Latanoprost Opth Drops) 0.005% Drops 1 DROP EACH EYE HS for Glaucoma, #2.5 ML 0 Refills Refrigerate until opened. Levothyroxine (Levothyroxine) 75 Mcg Tab 75 MCG PO DAILY for Thyroid, #30 TAB 0 Refills Melatonin (Melatonin) 5 Mg Tab 5 MG PO HS for Provide Good Sleep, TAB 0 Refills Metoprolol Tartrate (Metoprolol Tartrate) 100 Mg Tab 100 MG PO BID, #60 TAB 0 Refills Sennosides (Senna-Tabs) 8.6 Mg Tab 2 TAB PO BID for Constipation, #30 TAB 0 Refills Vitamins C & E (Cranberry Urinary Comfort) 1 Cap 1 CAP PO DAILY for Urinary Symptom Managemen, CAP 0 Refills Yael Feldman MD Jan 17, 2017 11:33
[2017-01-17 12:00] VITALS: BP 177/73; PULSE 100; RESP 17; TEMP 96.1; O2SAT 98
[2017-01-17 13:04] LABS: BICARBONATE 19.2 MEQ/L (21.0-32.0); POTASSIUM 3.9 MEQ/L (3.5-5.1)
[2017-01-21 23:51] LABS: VITAMIN B6 LESS THAN 2.0 ng/mL (2.1-21.7)
[2017-01-23] MEDS ORDERED: REMOVE OLD CATAPRES (CLONIDINE) PATCH T-DERMAL SCH (13:00)
== END 2017-01-17 16:54 ==
LOC: NEPC 08:10 → NEDA 12:42 → INTOOBSV 12:42 → N06A 16:43
PROVIDERS: ADMIT Hospitalist; ATTEND Hospitalist
DX: S42.401A Unspecified fracture of lower end of right humerus, initial encounter for closed fracture (principal); S82.001A Unspecified fracture of right patella, initial encounter for closed fracture; S82.002A Unspecified fracture of left patella, initial encounter for closed fracture; N39.0 Urinary tract infection, site not specified; B96.20 Unspecified Escherichia coli [E. coli] as the cause of diseases classified elsewhere; M81.0 Age-related osteoporosis without current pathological fracture; W18.30XA Fall on same level, unspecified, initial encounter; Y92.121 Bathroom in nursing home as the place of occurrence of the external cause; H40.9 Unspecified glaucoma; I10 Essential (primary) hypertension; E03.9 Hypothyroidism, unspecified; R10.9 Unspecified abdominal pain
CPT/HCPCS: 70450; 71010; 72125; 72170; 73030; 73060; 73070; 73090; 73200; 73560; 73564; 80048; 81001; 82140; 82607; 82948; 84207; 84425; 85025; 85610; 85730; 86592; 87077; 87086; 87186; 93005; 96361; 96365; 96366; 96372; 96375; 96376; 97162; 97530; 99285; G0378; G8987; G8988; J0696; J0744; J1644; J1650; J2270; J7030; J7040; L1830

== ENCOUNTER 2017-01-18 17:27 | Inpatient (IN) | payer MEDICARE, OTHER ==
[~2017-01-18] VITALS: Ht 165.1 cm; Wt 65.0 kg
[~2017-01-18 17:27] MED LIST changes: -BRIM.2%O OU; +BRIM0.2S4 EACH EYE; +CALCTAB19 PO; +CEFU1TAB42 PO; +CELE40TA PO; -CITA-48 PO; +CLON.1 PO; +CLON0.2D T-DERMAL; +CRANCAP2 PO; +DICL50TA PO; -DORZ1SOL2 OD; +DORZ2SOL15 EACH EYE; +DULC10SU3 RECTAL; -ENOX40P SQ; +FERR325T8 PO; +HYDR-3133 PO; +LATA0.002 EACH EYE; -LEVO.05 PO; +LEVO75TA3 PO; +LORA-392 PO; +MELA5TAB15 PO; +METO100T PO; -METO50TA PO; +NORC5TAB PO; -QUET300 PO; +REST15CA PO; -SENN8.6T15 PO; +SENN8.6T36 PO; -TRAV0.00 EACH EYE; +TYLE325T PO
--- NOTE | 2017-01-18 18:06 | RADRPT ---
EXAM DATE/TIME: 01/18/2017 18:36 [facility] COMPARISON: SHOULDER RIGHT LTD (2VWS), January 14, 2017, 9:26. CHEST SINGLE AP, January 14, 2017, 9:34. INDICATIONS : Fever MEDICAL HISTORY : Cardiovascular disease. Hypertension. Migraines. SURGICAL HISTORY : None. ENCOUNTER: Initial ACUITY: 1 day PAIN SCORE: Non-responsive. LOCATION: chest FINDINGS: A single view of the chest demonstrates minimal linear atelectasis or scarring. No consolidation or e ffusion. No pneumothorax. Scoliosis. Proximal right humeral fracture. CONCLUSION: Minimal basilar opacity most characteristic of atelectasis. Right humeral fracture. Sb Boyce MD on January 18, 2017 at 18:02 Board Certified Radiologist. This report was verified electronically.
[2017-01-18 18:15] VITALS: BP 156/74; PULSE 120; RESP 15; TEMP 98.7; O2SAT 100
--- NOTE | 2017-01-18 18:47 | RADRPT ---
EXAM DATE/TIME: 01/18/2017 18:36 [facility] COMPARISON: No previous studies available for comparison. INDICATIONS : Altered mental status. RADIATION DOSE: 30.27 CTDIvol (mGy) MEDICAL HISTORY : Cardiovascular disease. Hypertension. Dementia. SURGICAL HISTORY : None. ENCOUNTER: Initial ACUITY: 1 day PAIN SCALE: 0/10 LOCATION: cranial TECHNIQUE: Multiple contiguous axial images were obtained of the head. Using automated exposure control and adj ustment of the mA and/or kV according to patient size, radiation dose was kept as low as reasonably a chievable to obtain optimal diagnostic quality images. DICOM format image data is available electro nically for review and comparison. FINDINGS: CEREBRUM: The ventricles are normal for age. No evidence of midline shift, mass lesion, hemorrhage or acute in farction. No extra-axial fluid collections are seen. POSTERIOR FOSSA: The cerebellum and brainstem are intact. The 4th ventricle is midline. The cerebellopontine angle i s unremarkable. EXTRACRANIAL: The visualized portion of the orbits is intact. SKULL: The calvaria is intact. No evidence of skull fracture. CONCLUSION: 1. No acute findings. Cortical volume loss. Sb Boyce MD on January 18, 2017 at 18:43 Board Certified Radiologist. This report was verified electronically.
[2017-01-18 19:00] VITALS: BP 150/87; PULSE 113; RESP 16; O2SAT 97
[2017-01-18] MEDS ORDERED: SODIUM CHLOR 0.9% 1000 ML INJ 1,000 ML IV ONE ×2 (19:00→20:45)
--- NOTE | 2017-01-18 19:02 | PD ---
HPI Chief Complaint: Altered Mental Status Time Seen by Provider: 17:40 Travel History International Travel<30 days: No Contact w/Intl Traveler<30days: No Traveled to known affect area: No History of Present Illness HPI 89-year-old female that presents to the ED for evaluation of altered mental status. Patient was brought here by ambulance for evaluation of this. Per report from [facility] as well as from shelter patient has been more lethargic and more confused than normal. Patient was recently admitted for fractures to both her patellas is her right humerus. Unclear if patient has been given a narcotic pain medication but per report from the ambulance they did not. Patient is arousable but also sleep after speaking with me. She does appear to be somewhat confused. History is limited because of patient's mental status. I did review the patient's medical records and she was found to have a UTI and that was done of this making some of her symptoms worse. Unclear she's been taking antibiotic. Again history is limited. On exam she does state that she has pain everywhere. She has bilateral knee splints as well as right arm splint with a sling. PFSH Past Medical History Arthritis: Yes (HANDS) Asthma: No Autoimmune Disease: No Anxiety: Yes Heart Rhythm Problems: No Cancer: No Cardiovascular Problems: Yes High Cholesterol: No Chest Pain: No Congestive Heart Failure: No COPD: No Cerebrovascular Accident: No Dementia: Yes Diabetes: No Endocrine: Yes GERD: No Glaucoma: Yes Genitourinary: Yes (URINARY INCONTINENCE, UTI'S) Headaches: Yes Hiatal Hernia: No Hypertension: Yes Immune Disorder: No Kidney Stones: No Musculoskeletal: Yes Neurologic: Yes Psychiatric: Yes Reproductive: No Respiratory: Yes Migraines: Yes Seizures: No Shingles: Yes Sleep Apnea: No Thyroid Disease: Yes (HYPOTHYROIDISM) Ulcer: No Tetanus Vaccination: Unknown ?: Not Menopausal: Yes : 3 Para: 3 Past Surgical History Abdominal Surgery: No AICD: No Arteriovenous Shunt: No Cardiac Surgery: No Eye Surgery: Yes (IMPLANT, CATARACTS) Genitourinary Surgery: No Gynecologic Surgery: No Insulin Pump: No Joint Replacement: Yes Oral Surgery: No Pacemaker: No Thoracic Surgery: No Other Surgery: Yes Social History Alcohol Use: No Tobacco Use: No Substance Use: No Allergies-Medications (Allergen,Severity, Reaction): Coded Allergies: codeine (Unverified Allergy, Intermediate, Nausea/Vomiting, 10/22/17) nitrofurantoin (Unverified Allergy, Unknown, chest pain, 01/18/17) penicillin G (Unverified Adverse Reaction, Intermediate, headache, ) Reported Meds & Prescriptions Reported Meds & Active Scripts Active Ceftin (Cefuroxime Axetil) 250 Mg Tab 250 Mg PO BID 7 Days Calcium 600+D 200 (Calcium Carbonate-Vitamin D) 600-200 Mg-Unit Tab 1 Tab PO BID [place] (Hydrocodone-Acetaminophen) 5-325 mg Tab 1 Tab PO Q4H PRN Reported Brimonidine Opth Drops (Brimonidine Tartrate) 0.2% Soln 1 Drop EACH EYE BID Latanoprost Opth Drops (Latanoprost) 0.005% Drops 1 Drop EACH EYE HS Refrigerate until opened. Dorzolamide-Timolol Opth Drops 22.3-6.8 Mg/Ml Soln 1 Drop EACH EYE BID Dulcolax Supp (Bisacodyl) 10 Mg Supp 10 Mg RECTAL DAILY PRN Tylenol (Acetaminophen) 325 Mg Tab 650 Mg PO Q4H PRN Tylenol (Acetaminophen) 325 Mg Tab 325 Mg PO Q4H PRN Senna-Tabs (Sennosides) 8.6 Mg Tab 2 Tab PO BID Restoril (Temazepam) 15 Mg Cap 15 Mg PO HS PRN Metoprolol Tartrate 100 Mg Tab 100 Mg PO BID Melatonin 5 Mg Tab 5 Mg PO HS Levothyroxine (Levothyroxine Sodium) 75 Mcg Tab 75 Mcg PO DAILY Hydroxyzine HCl 25 Mg Tab 25 Mg PO BID Ferrous Sulfate 325 Mg (65 Mg Iron) Tablet 325 Mg PO BIDPC Cranberry Urinary Comfort (Vitamins C & E) 1 Cap 1 Cap PO DAILY Clonidine 168 HR Patch (Clonidine HCl) 0.2 Mg/24 Hr Patch 1 Patch T-DERMAL Q7D Celexa (Citalopram Hydrobromide) 40 Mg Tab 40 Mg PO DAILY Catapres (Clonidine) 0.1 Mg Tab 0.1 Mg PO BID PRN Diclofenac Potassium 50 Mg Tab 50 Mg PO TID PRN Ativan (Lorazepam) 0.5 Mg Tab 0.25 Mg PO Q8H PRN Review of Systems ROS Limitations: Altered Mental Status, Poor Historian Except as stated in HPI: all other systems reviewed are Neg Physical Exam Exam Limitations: Altered Mental Status, Poor Historian Narrative GENERAL: SKIN: Warm and dry. HEAD: Atraumatic. Normocephalic. EYES: Pupils equal and round. No scleral icterus. No injection or drainage. ENT: No nasal bleeding or discharge. Mucous membranes pink and moist. Tongue is midline. No uvula deviation. NECK: Trachea midline. No JVD. CARDIOVASCULAR: Regular rate and rhythm. No murmurs, S3, S4. RESPIRATORY: No accessory muscle use. Clear to auscultation. Breath sounds equal bilaterally. GASTROINTESTINAL: Abdomen soft, non-tender, nondistended. Hepatic and splenic margins not palpable. MUSCULOSKELETAL: Extremities without clubbing, cyanosis, or edema. No obvious deformities. Patient has a cast noted on the right arm with a sling as well as bilateral knee immobilizers and both knees. 2+ pulses bilaterally. NEUROLOGICAL: Awake and alert and oriented x 2. No obvious cranial nerve deficits. Motor grossly within normal limits. Five out of 5 muscle strength in the arms and legs. Normal speech. PSYCHIATRIC: Demented mood and affect; insight and judgment normal. Data Data Last Documented VS Vital Signs Date Time Temp Pulse Resp B/P (MAP) Pulse Ox O2 Delivery O2 Flow Rate FiO2 01/18/17 19:00 113 16 150/87 (108) 97 Room Air 01/18/17 18:15 98.7 Orders Orders Electrocardiogram (01/18/17 17:41) Complete Blood Count With Diff (01/18/17 17:41) Comprehensive Metabolic Panel (01/18/17 17:41) Ckmb (Isoenzyme) Profile (01/18/17 17:41) Troponin I (01/18/17 17:41) Prothrombin Time / Inr (Pt) (01/18/17 17:41) Act Partial Throm Time (Ptt) (01/18/17 17:41) Blood Culture (01/18/17 17:41) Urinalysis - C+S If Indicated (01/18/17 17:41) Magnesium (Mg) (01/18/17 17:41) Thyroid Stimulating Hormone (01/18/17 17:41) Chest, Single Ap (01/18/17 17:41) Ct Brain W/O Iv Contrast(Rout) (01/18/17 17:41) Iv Access Insert/Monitor (01/18/17 17:41) Ecg Monitoring (01/18/17 17:41) Oximetry (01/18/17 17:41) Drug Screen, Random Urine (01/18/17 17:41) Alcohol (Ethanol) (01/18/17 17:41) Salicylates (Aspirin) (01/18/17 17:41) Tylenol (Acetaminophen) (01/18/17 17:41) Lactic Acid Sepsis Protocol (01/18/17 17:41) Vascular Access Team Consult/P PRN (01/18/17 18:11) Vascular Poc Ultrasound (01/18/17 ) Sodium Chlor 0.9% 1000 Ml Inj (Ns 1000 M (01/18/17 19:00) Urine Culture (01/18/17 18:45) Ciprofloxacin 400 Mg Premix (Cipro 400 M (01/18/17 20:45) Sodium Chlor 0.9% 1000 Ml Inj (Ns 1000 M (01/18/17 20:45) Admit Order (Ed Use Only) (01/18/17 21:12) Vital Signs (Adult) Q4H (01/18/17 21:12) Diet Heart Healthy (01/19/17 Breakfast) Activity Bed Rest (01/18/17 21:12) Notify Dr: Other (01/18/17 21:12) Labs Laboratory Tests Test 01/18/17 18:25 01/18/17 18:45 White Blood Count 7.9 TH/MM3 Red Blood Count 2.51 MIL/MM3 Hemoglobin 8.4 GM/DL Hematocrit 24.3 % Mean Corpuscular Volume 97.1 FL Mean Corpuscular Hemoglobin 33.7 PG Mean Corpuscular Hemoglobin Concent 34.7 % Red Cell Distribution Width 12.5 % Platelet Count 278 TH/MM3 Mean Platelet Volume 6.6 FL Neutrophils (%) (Auto) 70.3 % Lymphocytes (%) (Auto) 19.0 % Monocytes (%) (Auto) 7.2 % Eosinophils (%) (Auto) 2.9 % Basophils (%) (Auto) 0.6 % Neutrophils # (Auto) 5.5 TH/MM3 Lymphocytes # (Auto) 1.5 TH/MM3 Monocytes # (Auto) 0.6 TH/MM3 Eosinophils # (Auto) 0.2 TH/MM3 Basophils # (Auto) 0.0 TH/MM3 CBC Comment DIFF FINAL Differential Comment Prothrombin Time 11.6 SEC Prothromb Time International Ratio 1.0 RATIO Activated Partial Thromboplast Time 26.6 SEC Blood Urea Nitrogen 22 MG/DL Creatinine 0.77 MG/DL Random Glucose 130 MG/DL Total Protein 6.7 GM/DL Albumin 2.7 GM/DL Calcium Level 8.7 MG/DL Magnesium Level 1.7 MG/DL Alkaline Phosphatase 65 U/L Aspartate Amino Transf (AST/SGOT) 37 U/L Alanine Aminotransferase (ALT/SGPT) 15 U/L Total Bilirubin 0.6 MG/DL Sodium Level 140 MEQ/L Potassium Level 3.2 MEQ/L Chloride Level 108 MEQ/L Carbon Dioxide Level 21.0 MEQ/L Anion Gap 11 MEQ/L Estimat Glomerular Filtration Rate 71 ML/MIN Lactic Acid Level 0.9 mmol/L Total Creatine Kinase 66 U/L Troponin I LESS THAN 0.02 NG/ML Thyroid Stimulating Hormone 3rd Gen 2.030 uIU/ML Salicylates Level LESS THAN 1.7 MG/DL Acetaminophen Level LESS THAN 2.0 MCG/ML Ethyl Alcohol Level LESS THAN 3 MG/DL Urine Color YELLOW Urine Turbidity HAZY Urine pH 5.5 Urine Specific [place] 1.017 Urine Protein 30 mg/dL Urine Glucose (UA) NEG mg/dL Urine Ketones 80 mg/dL Urine Occult Blood SMALL Urine Nitrite NEG Urine Bilirubin NEG Urine Urobilinogen LESS THAN 2.0 MG/DL Urine Leukocyte Esterase LARGE Urine RBC 28 /hpf Urine WBC 77 /hpf Urine Squamous Epithelial Cells 5 /hpf Urine Amorphous Sediment RARE Urine Bacteria RARE /hpf Urine Mucus FEW /lpf Microscopic Urinalysis Comment CULTURE INDICATED Urine Opiates Screen NEG Urine Barbiturates Screen NEG Urine Amphetamines Screen NEG Urine Benzodiazepines Screen NEG Urine Cocaine Screen NEG Urine Cannabinoids Screen NEG [facility] Medical Decision Making Medical Screen Exam Complete: Yes Emergency Medical Condition: Yes Medical Record Reviewed: Yes Interpretation(s) Last Impressions Head CT 01/18/171740 Signed Impressions: Service Date/Time: Wednesday, January 18, 2017 18:36 - CONCLUSION: 1. No acute findings. Cortical volume loss. Sb Boyce MD Chest X-Ray 01/18/171740 Signed Impressions: Service Date/Time: Wednesday, January 18, 2017 18:36 - CONCLUSION: Minimal basilar opacity most characteristic of atelectasis. Right humeral fracture. Sb Boyce MD EKG shows sinus tachycardia with no sign of acute ischemia or arrhythmia read by me and attending. Troponin and CK-MB negative. CBC & BMP Diagram 01/18/17 18:25 Total Protein 6.7, Albumin 2.7 L, Calcium Level 8.7, Magnesium Level 1.7, Alkaline Phosphatase 65, Aspartate Amino Transf (AST/SGOT) 37, Alanine Aminotransferase (ALT/SGPT) 15, Total Bilirubin 0.6 UA shows signs of UTI. Drug screen does not show any sign of opiate and benzo use. Differential Diagnosis Altered mental status versus UTI versus sepsis versus pneumonia versus dementia versus delirium versus agitation versus overmedication Narrative Course 89-year-old female that presents to the ED for evaluation of altered mental status. Patient was properly examined and was found to have signs and symptoms consistent with upper mental status. She does have a history of dementia already and she was just released from the hospital yesterday with urinary tract infection. Labs and imaging will be ordered. Patient was found to be tachycardic in the 120s. She does appear to be somewhat dry. There is definitely concerning for sepsis. NS bolus was ordered. Labs and imaging did show UTI. No obvious elevated white blood cell count but patient does have a slight elevation of lymphocytes. drug screen negative for sedatives. Patient has been tachycardic to her same. She was given 2 boluses of fluid. She was started on Cipro. Case discussed in my attending Dr. Rodriguez who recommends admission secondary to altered mental status and UTI. This was discussed with Dr. Nunez who agrees to admission. Diagnosis Primary Impression: UTI (urinary tract infection) Qualified Codes: N30.00 - Acute cystitis without hematuria Additional Impressions: Altered mental status Qualified Codes: R41.82 - Altered mental status, unspecified Anemia Qualified Codes: D64.9 - Anemia, unspecified Tachycardia Admitting Information Admitting Physician Requests: Matt Resendez Jan 18, 2017 19:02
[2017-01-18 19:17] LABS: AUTOMATED NEUTROPHIL # 5.5 TH/MM3 (1.8-7.7); BASOPHIL % 0.6 % (0.0-2.0); EOSINOPHIL # 0.2 TH/MM3 (0-0.4); EOSINOPHIL % 2.9 % (0.0-4.0); HEMATOCRIT 24.3 % (35.0-46.0); HEMO FLAGS DIFF FINAL; LYMPHOCYTE # 1.5 TH/MM3 (1.0-4.8); MEAN CELL VOLUME 97.1 FL (80.0-100.0); MEAN CORPUSCULAR HEMOGLOBIN 33.7 PG (27.0-34.0); MEAN CORPUSCULAR HGB CONC 34.7 % (32.0-36.0); MONO % 7.2 % (0.0-8.0); NEUT % 70.3 % (16.0-70.0); PLATELET COUNT 278 TH/MM3 (150-450); RED BLOOD COUNT 2.51 MIL/MM3 (4.00-5.30); RED CELL DISTRIBUTION WIDTH 12.5 % (11.6-17.2); WHITE BLOOD COUNT 7.9 TH/MM3 (4.0-11.0)
[2017-01-18 19:32] LABS: APTT (PATIENT) 26.6 SEC (24.3-30.1); PROTHROMBIN TIME - PATIENT 11.6 SEC (9.8-11.6)
[2017-01-18 19:40] LABS: BACTERIA, URINE RARE /hpf; BLOOD, URINE SMALL (NEG); COMMENT (UR) CULTURE INDICATED; CULTURE IF INDICATED CULTURE INDICATED; GLUCOSE,URINE NEG (NEG); KETONE, URINE 80 mg/dL (NEG); MUCUS URINE FEW /lpf (OCC); NITRITE,URINE NEG (NEG); PH, URINE 5.5 (5.0-8.5); SQUAMOUS EPITHELIAL CELL URINE 5 /hpf (0-5); URINE COLOR YELLOW (YELLW/STRAW)
[2017-01-18 19:43] LABS: ANION GAP 11 MEQ/L (5-15); CHLORIDE 108 MEQ/L (98-107); GLOMERULAR FILTRATION RATE 71 ML/MIN (>89); MAGNESIUM 1.7 MG/DL (1.5-2.5); POTASSIUM 3.2 MEQ/L (3.5-5.1); SODIUM (NA) 140 MEQ/L (136-145)
[2017-01-18 19:50] LABS: ALKALINE PHOSPHATASE 65 U/L (45-117); ALT (GPT) 15 U/L (10-53); AST (GOT) 37 U/L (15-37); BLOOD UREA NITROGEN 22 MG/DL (7-18)
[2017-01-18 19:53] LABS: TOTAL BILIRUBIN ADULT 0.6 MG/DL (0.2-1.0)
[2017-01-18 19:57] LABS: ALCOHOL LESS THAN 3 MG/DL (0-5); CREATINE KINASE 66 U/L (26-192)
[2017-01-18 20:12] LABS: ACETAMINOPHEN LESS THAN 2.0 MCG/ML (10.0-30.0)
[2017-01-18] MEDS ORDERED: CIPROFLOXACIN 400 MG PREMIX 200 ML IV ONE (20:45)
[2017-01-18] MEDS ORDERED: SODIUM CHLORIDE 0.9% FLUSH 10 ML FLUSH IV FLUSH PRN (21:45)
[2017-01-18] MEDS ORDERED: LACTULOSE SYRUP 20 GM/30 ML CUP PO PRN (21:45)
[2017-01-18] MEDS ORDERED: TEMAZEPAM 15 MG CAP PO PRN (21:45)
[2017-01-18] MEDS ORDERED: BISACODYL 10 MG SUPP RECTAL PRN (21:45)
[2017-01-18] MEDS ORDERED: ONDANSETRON HCL 4 MG/2 ML VIAL IVP PRN (21:45)
[2017-01-18] MEDS ORDERED: MAGNESIUM HYDROXIDE SUSP 30 ML CUP PO PRN (21:45)
[2017-01-18] MEDS ORDERED: SENNOSIDES 8.6 MG TAB PO PRN (21:45)
--- NOTE | 2017-01-18 21:45 | HHI.HP ---
HPI Service [facility] Primary Care Physician Unknown Admission Diagnosis UTI, altered mental status, tachycardia Diagnoses: (1) Encephalopathy Diagnosis: Principal (2) UTI (urinary tract infection) Diagnosis: Principal (3) Dehydration Diagnosis: Principal (4) Hypokalemia Diagnosis: Principal Travel History International Travel<30 Days: No Contact w/Intl Traveler <30 Da: No Traveled to Known Affected Are: No History of Present Illness This is an 89-year-old female with a PMH of Anxiety, Dementia, Hypothyroidism and Glaucoma who was brought to the ER by EMS from SNF secondary to AMS. Per report, patient noted to be more lethargic than usual. Recent admit 01/14-01/17 for fall w/ Patellar Fx, Humerus Fx and Right Elbow Fx, s/p eval by Ortho w / conservative management, episode of AMS during that admission thought to be secondary to UTI, s/p IV Abx, d/c'd to Rehab w/ Ceftin 250mg BID x7 days. Today , noted to be confused by staff. Pt unable to provide much history due to confusion. On arrival, BP 177/73, HR 100, O2 sat 98% on RA, Afebrile. CBC at baseline. K+ 3.2. GFR 71. Lactic Acid normal. Troponin negative. INR 1.0. UA positive for UTI. Urine Drug Screen negative. Alcohol negative. CT Head with no acute findings. CXR with minimal basilar opacity mostly atelectasis. S /p Blood/Urine Cultures, Cipro IV in ER. Review of Systems Except as stated in HPI: all other systems reviewed are Neg ROS: 14 point review of systems otherwise negative. Past Family Social History Past Medical History PMH: Anxiety, Dementia, Hypothyroidism and Glaucoma Past Surgical History PAST SURGICAL HISTORY: Cataract Surgery Allergies: Coded Allergies: codeine (Unverified Allergy, Intermediate, Nausea/Vomiting, 01/18/17) nitrofurantoin (Unverified Allergy, Unknown, chest pain, 01/18/17) penicillin G (Unverified Adverse Reaction, Intermediate, headache, ) Family History PAST FAMILY HISTORY: Reviewed. No h/o DM or CAD Social History PAST SOCIAL HISTORY: Negative for alcohol, tobacco or drugs. Physical Exam Vital Signs Vital Signs Date Time Temp Pulse Resp B/P (MAP) Pulse Ox O2 Delivery O2 Flow Rate FiO2 01/18/17 19:00 113 16 150/87 (108) 97 Room Air 01/18/17 18:15 98.7 120 15 156/74 (101) 100 Room Air Physical Exam PE: GENERAL: Elderly white female in no acute distress. Pleasantly demented, confused. HEENT: PERRLA, EOMI. No scleral icterus or conjunctival pallor. No lid lag or facial droop. CARDIOVASCULAR: Regular rate and rhythm. No obvious murmurs to auscultation. No chest tenderness to palpation. RESPIRATORY: No obvious rhonchi or wheezing. Clear to auscultation. Breath sounds equal bilaterally. GASTROINTESTINAL: Abdomen soft, non-tender, nondistended. BS normal. MUSCULOSKELETAL: Extremities without clubbing, cyanosis, or edema. No obvious deformities. RUE w/ sling, Bilateral LE immobilizers. NEUROLOGICAL: Awake, alert, oriented to person.. No focal neurologic deficits. Moving both upper and lower extremities spontaneously. Laboratory Laboratory Tests Test 01/18/17 18:25 01/18/17 18:45 White Blood Count 7.9 Red Blood Count 2.51 Hemoglobin 8.4 Hematocrit 24.3 Mean Corpuscular Volume 97.1 Mean Corpuscular Hemoglobin 33.7 Mean Corpuscular Hemoglobin Concent 34.7 Red Cell Distribution Width 12.5 Platelet Count 278 Mean Platelet Volume 6.6 Neutrophils (%) (Auto) 70.3 Lymphocytes (%) (Auto) 19.0 Monocytes (%) (Auto) 7.2 Eosinophils (%) (Auto) 2.9 Basophils (%) (Auto) 0.6 Neutrophils # (Auto) 5.5 Lymphocytes # (Auto) 1.5 Monocytes # (Auto) 0.6 Eosinophils # (Auto) 0.2 Basophils # (Auto) 0.0 CBC Comment DIFF FINAL Differential Comment Prothrombin Time 11.6 Prothromb Time International Ratio 1.0 Activated Partial Thromboplast Time 26.6 Blood Urea Nitrogen 22 Creatinine 0.77 Random Glucose 130 Total Protein 6.7 Albumin 2.7 Calcium Level 8.7 Magnesium Level 1.7 Alkaline Phosphatase 65 Aspartate Amino Transf (AST/SGOT) 37 Alanine Aminotransferase (ALT/SGPT) 15 Total Bilirubin 0.6 Sodium Level 140 Potassium Level 3.2 Chloride Level 108 Carbon Dioxide Level 21.0 Anion Gap 11 Estimat Glomerular Filtration Rate 71 Lactic Acid Level 0.9 Total Creatine Kinase 66 Troponin I LESS THAN 0.02 Thyroid Stimulating Hormone 3rd Gen 2.030 Salicylates Level LESS THAN 1.7 Acetaminophen Level LESS THAN 2.0 Ethyl Alcohol Level LESS THAN 3 Urine Color YELLOW Urine Turbidity HAZY Urine pH 5.5 Urine Specific [place] 1.017 Urine Protein 30 Urine Glucose (UA) NEG Urine Ketones 80 Urine Occult Blood SMALL Urine Nitrite NEG Urine Bilirubin NEG Urine Urobilinogen LESS THAN 2.0 Urine Leukocyte Esterase LARGE Urine RBC 28 Urine WBC 77 Urine Squamous Epithelial Cells 5 Urine Amorphous Sediment RARE Urine Bacteria RARE Urine Mucus FEW Microscopic Urinalysis Comment CULTURE INDICATED Urine Opiates Screen NEG Urine Barbiturates Screen NEG Urine Amphetamines Screen NEG Urine Benzodiazepines Screen NEG Urine Cocaine Screen NEG Urine Cannabinoids Screen NEG Date/Time Source Procedure Growth Status 01/18/17 18:30 Blood Peripheral Aerobic Blood Culture Pending Received 01/18/17 18:30 Blood Peripheral Anaerobic Blood Culture Pending Received 01/18/17 18:45 Urine Random Urine Urine Culture Pending Received Result Diagram: 01/18/17182401/18/171824 Caprini VTE Risk Assessment Caprini VTE Risk Assessment: Mod/High Risk (score >= 2) Caprini Risk Assessment Model Point Value = 1 Point Value = 2 Point Value = 3 Point Value = 5 Age 41-60 Minor surgery BMI > 25 kg/m2 Swollen legs Varicose veins or History of unexplained or recurrent spontaneous Oral contraceptives or hormone replacement Sepsis (< 1 month) Serious lung disease, including pneumonia (< 1 month) Abnormal pulmonary function Acute myocardial infarction Congestive heart failure (< 1 month) History of inflammatory bowel disease Medical patient at bed rest Age 61-74 Arthroscopic surgery Major open surgery (> 45 min) Laparoscopic surgery (> 45 min) Malignancy Confined to bed (> 72 hours) Immobilizing plaster cast Central venous access Age >= 75 History of VTE Family history of VTE Factor V Leiden Prothrombin [id number] Lupus anticoagulant Anticardiolipin antibodies Elevated serum homocysteine Heparin-induced thrombocytopenia Other congenital or acquired thrombophilia Stroke (< 1 month) Elective arthroplasty Hip, pelvis, or leg fracture Acute spinal cord injury (< 1 month) Prophylaxis Regimen Total Risk Factor Score Risk Level Prophylaxis Regimen 0-1 Low Early ambulation 2 Moderate Order ONE of the following: *Sequential Compression Device (SCD) *Heparin 5000 units SQ BID 3-4 Higher Order ONE of the following medications: *Heparin 5000 units SQ TID *Enoxaparin/Lovenox 40 mg SQ daily (WT < 150 kg, CrCl > 30 mL/min) *Enoxaparin/Lovenox 30 mg SQ daily (WT < 150 kg, CrCl > 10-29 mL/min) *Enoxaparin/Lovenox 30 mg SQ BID (WT < 150 kg, CrCl > 30 mL/min) AND/OR *Sequential Compression Device (SCD) 5 or more Highest Order ONE of the following medications: *Heparin 5000 units SQ TID (Preferred with Epidurals) *Enoxaparin/Lovenox 40 mg SQ daily (WT < 150 kg, CrCl > 30 mL/min) *Enoxaparin/Lovenox 30 mg SQ daily (WT < 150 kg, CrCl > 10-29 mL/min) *Enoxaparin/Lovenox 30 mg SQ BID (WT < 150 kg, CrCl > 30 mL/min) AND *Sequential Compression Device (SCD) Assessment and Plan Problem List: (1) Encephalopathy ICD Code: G93.40 - Encephalopathy, unspecified (2) UTI (urinary tract infection) ICD Code: N39.0 - Urinary tract infection, site not specified Status: Acute (3) Hypokalemia ICD Code: E87.6 - Hypokalemia (4) Dehydration ICD Code: E86.0 - Dehydration Assessment and Plan A/P: 1. Encephalopathy: Likely secondary to underlying Dementia compounded by acute UTI. CT Head w/ no acute findings, images reviewed by me. 2. UTI: Recurrent. Recent admit 12/30-01/03/17 s/p IV Abx for UTI, completed Ceftin x7 days, now w/ recurrent UTI. S/p Cipro IV, will continue w/ IV Abx. Follow up cultures. 3. Hypokalemia: K+ 3.2. Will recheck and replace as needed. 4. Dehydration: GFR 71, likely secondary to dehydration from UTI. IVF, repeat labs in am. 5. DVT Prophylaxis: Heparin sq 6. Social work for d/c planning as needed. 7. Case discussed w/ ER physician at length. Problem Qualifiers (1) UTI (urinary tract infection): Qualified Codes: N30.00 - Acute cystitis without hematuria Jacquie Nunez MD Jan 18, 2017 21:45
[2017-01-18 22:00] VITALS: BP 175/91; PULSE 113; RESP 16; O2SAT 98
[2017-01-18] MEDS ORDERED: cloNIDine HCL 0.2 MG/24 HR PATCH T-DERMAL SCH (22:00)
[2017-01-18] MEDS ORDERED: REMOVE OLD CATAPRES (CLONIDINE) PATCH T-DERMAL SCH (22:00)
[2017-01-18] MEDS: SODIUM CHLOR 0.9% 1000 ML INJ 1,000 ML IV SCH (22:21)
[2017-01-18 23:00] VITALS: BP 133/72; PULSE 109; RESP 16; O2SAT 97
[2017-01-19] VITALS (10 sets, daily range): BP systolic 135–184; BP diastolic 69–95; PULSE 108–125; RESP 18–20; TEMP 96.2–99.2; O2SAT 94–100
[2017-01-19] MEDS ORDERED: POTASSIUM CHLOR 20 MEQ PREMIX 100 ML IV ONE (04:15)
[2017-01-19 04:49] LABS: ANION GAP 13 MEQ/L (5-15); AST (GOT) 35 U/L (15-37); BICARBONATE 17.3 MEQ/L (21.0-32.0); BLOOD UREA NITROGEN 15 MG/DL (7-18); CHLORIDE 110 MEQ/L (98-107); GLOMERULAR FILTRATION RATE 109 ML/MIN (>89); POTASSIUM 3.4 MEQ/L (3.5-5.1); SODIUM (NA) 140 MEQ/L (136-145)
[2017-01-19 04:50] LABS: ALT (GPT) 15 U/L (10-53)
[2017-01-19 04:54] LABS: ALKALINE PHOSPHATASE 64 U/L (45-117); CREATINE KINASE 65 U/L (26-192); TOTAL BILIRUBIN ADULT 0.6 MG/DL (0.2-1.0)
[2017-01-19 05:09] LABS: AUTOMATED NEUTROPHIL # 5.7 TH/MM3 (1.8-7.7); BASOPHIL # 0.1 TH/MM3 (0-0.2); BASOPHIL % 0.7 % (0.0-2.0); EOSINOPHIL # 0.3 TH/MM3 (0-0.4); EOSINOPHIL % 3.3 % (0.0-4.0); HEMATOCRIT 25.7 % (35.0-46.0); HEMO FLAGS DIFF FINAL; LYMPH % 15.2 % (9.0-44.0); LYMPHOCYTE # 1.2 TH/MM3 (1.0-4.8); MEAN CELL VOLUME 97.6 FL (80.0-100.0); MEAN CORPUSCULAR HEMOGLOBIN 32.4 PG (27.0-34.0); MEAN CORPUSCULAR HGB CONC 33.2 % (32.0-36.0); MONO % 7.2 % (0.0-8.0); NEUT % 73.6 % (16.0-70.0); PLATELET COUNT 282 TH/MM3 (150-450); RED BLOOD COUNT 2.63 MIL/MM3 (4.00-5.30); RED CELL DISTRIBUTION WIDTH 13.1 % (11.6-17.2); WHITE BLOOD COUNT 7.7 TH/MM3 (4.0-11.0)
[2017-01-19] MEDS: LEVOTHYROXINE SODIUM 75 MCG TAB PO SCH (05:18)
[2017-01-19] MEDS: BRIMONIDINE TARTRATE 0.2% OPHT SOLN 5 ML BTL EACH EYE SCH ×2 (09:00→22:28)
[2017-01-19] MEDS: DORZOLAMIDE/TIMOLOL OPTH SOLN 10 ML BTL EACH EYE SCH ×2 (09:00→22:26)
[2017-01-19] MEDS ORDERED: MAGNESIUM SULFATE 1 GM PREMIX 100 ML IV ONE (09:00)
--- NOTE | 2017-01-19 09:22 | HHI.PR ---
Subjective Remarks Follow up for encephalopathy, UTI. The patient keeps eyes closed throughout conversation, does not answer questions appropriately, will not tell me her name /birthdate or answer any orientation questions. Denies any medical complaints including no fevers/chills, pain, chest pain, shortness of breath, or abdominal complaints. Objective Vitals Vital Signs Date Time Temp Pulse Resp B/P (MAP) Pulse Ox O2 Delivery O2 Flow Rate FiO2 01/19/17 07:25 99.2 125 20 184/88 (120) 98 01/19/17 04:47 123 01/19/17 03:14 98.5 119 20 149/84 (105) 100 01/19/17 00:08 98.5 115 20 167/69 (101) 98 01/18/17 23:00 109 16 133/72 (92) 97 Room Air 01/18/17 22:00 113 16 175/91 (119) 98 Room Air 01/18/17 19:00 113 16 150/87 (108) 97 Room Air 01/18/17 18:15 98.7 120 15 156/74 (101) 100 Room Air I/O 01/18/17 01/18/17 01/18/17 01/19/17 01/19/17 01/19/17 07:00 15:00 23:00 07:00 15:00 23:00 Intake Total 2200 ml 925 ml Output Total 600 ml 850 ml Balance 1600 ml 75 ml Intake IV Total 2200 ml 925 ml Output Urine Total 600 ml 850 ml # Bowel Movements 1 Result Diagram: 01/19/178 01/19/17327 Imaging Last Impressions Head CT 01/18/171740 Signed Impressions: Service Date/Time: Wednesday, January 18, 2017 18:36 - CONCLUSION: 1. No acute findings. Cortical volume loss. Sb Boyce MD Chest X-Ray 01/18/171740 Signed Impressions: Service Date/Time: Wednesday, January 18, 2017 18:36 - CONCLUSION: Minimal basilar opacity most characteristic of atelectasis. Right humeral fracture. Sb Boyce MD Objective Remarks GENERAL: Well-nourished, well-developed pleasantly demented/confused elderly female patient in [facility]. SKIN: Warm and dry. No rash. HEENT: Normocephalic. Atraumatic.Pupils equal and round. Mucous membranes pink and moist. CARDIOVASCULAR: Tachycardic, regular rhythm. S1, S2 noted. No murmur appreciated. RESPIRATORY: No accessory muscle use. Clear to auscultation. Breath sounds equal bilaterally. GASTROINTESTINAL: Abdomen soft, non-tender, nondistended. Normoactive bowel sounds x4. MUSCULOSKELETAL: No obvious deformities. Extremities without clubbing, cyanosis , or edema. RUE in sling. BLE in knee immobilizers. 2+ bilateral radial and pedal pulses. NEUROLOGICAL: Awake and alert. No obvious cranial nerve deficits. Motor grossly within normal limits. 5/5 muscle strength in bilateral upper and lower extremities. Normal speech. PSYCHIATRIC: insight and judgment poor. Medications and IVs Current Medications Medications (Trade) Dose Ordered Sig/Helen Route Start Time Stop Time Status Last Admin Ciprofloxacin/ Dextrose 200 ml @ 200 mls/hr Q12H IV 01/19/17 09:00 Sodium Chloride 1,000 ml @ 100 mls/hr Q10H IV 01/18/17 22:00 01/18/17 22:21 (NS Flush) 2 ml UNSCH PRN IV FLUSH 01/18/17 21:45 (NS Flush) 2 ml BID IV FLUSH 01/19/17 09:00 (Zofran Inj) 4 mg Q6H PRN IVP 01/18/17 21:45 (Tylenol) 650 mg Q6H PRN PO 01/18/17 21:45 (Veronique-Colace) 1 tab BID PO 01/19/17 09:00 (Milk Of Magnesia Liq) 30 ml Q12H PRN PO 01/18/17 21:45 (Senokot) 17.2 mg Q12H PRN PO 01/18/17 21:45 (Dulcolax Supp) 10 mg DAILY PRN RECTAL 01/18/17 21:45 (Lactulose Liq) 30 ml DAILY PRN PO 01/18/17 21:45 (Alphagan 0.2% Opth Soln) 1 drop BID EACH EYE 01/19/17 09:00 (CeleXA) 40 mg DAILY PO 01/19/17 09:00 (Catapres-Tts 0.2 Mg Patch.7d) 1 patch Q7D T-DERMAL 01/18/17 22:00 01/18/17 22:23 (Cosopt 2-0.5% Opth Soln) 1 drop BID EACH EYE 01/19/17 09:00 (Ferrous Sulfate) 325 mg BIDPC PO 01/19/17 09:00 (Xalatan 0.005% Opth Soln) 1 drop HS EACH EYE 01/19/17 21:00 (Synthroid) 75 mcg DAILY@0600 PO 01/19/17 06:00 (Ativan) 0.25 mg Q8H PRN PO 01/18/17 21:45 (Lopressor) 100 mg BID PO 01/19/17 09:00 (Restoril) 15 mg HS PRN PO 01/18/17 21:45 Miscellaneous Information 1 Q7D T-DERMAL 01/18/17 22:00 01/18/17 22:23 (Heparin Inj) 5,000 units Q12HR SQ 01/19/17 09:00 A/P Problem List: (1) Encephalopathy ICD Code: G93.40 - Encephalopathy, unspecified (2) UTI (urinary tract infection) ICD Code: N39.0 - Urinary tract infection, site not specified Status: Acute (3) Hypokalemia ICD Code: E87.6 - Hypokalemia (4) Dehydration ICD Code: E86.0 - Dehydration Assessment and Plan 89-year-old female with a PMH of Anxiety, Dementia, Hypothyroidism and Glaucoma who was brought to the ER by EMS from SNF secondary to AMS. Per report, patient noted to be more lethargic than usual. Recent admit 01/14-01/17/17 for fall w/ Patellar Fx, Humerus Fx and Right Elbow Fx, s/p eval by Ortho w/ conservative management, episode of AMS during that admission thought to be secondary to UTI, s/p IV Abx, d/c'd to Rehab w/ Ceftin 250mg BID x7 days. Today , noted to be confused by staff. Pt unable to provide much history due to confusion. Acute Metabolic Encephalopathy: Likely secondary to underlying Dementia compounded by acute UTI. CT Head w/ no acute findings, images reviewed by me. Treat UTI. Monitor neuro checks. UTI: Failed outpatient. Recent admit 12/30-01/03/17 s/p IV Abx for UTI, completed Ceftin x7 days, now w/ recurrent UTI. Continue antibiotics with IV Cipro. Follow up cultures. Hypokalemia/Hypomagnesemia: K+ 3.2. Mag 1.7. Given IV KCl and Mag Sulfate replacement. Recheck and replace as needed. Dehydration: GFR 71, likely secondary to dehydration from UTI. Give IVF, repeat labs show improvement, GFR 109, Cr 0.53. Tachycardia: EKG with sinus tachycardia. Suspect secondary to infection in combination with dehydration. TSH wnl, troponins negative x2. Replace electrolytes. Continue antibiotics and IVF. Monitor on telemetry. DVT Prophylaxis: Heparin sq Problem Qualifiers (1) UTI (urinary tract infection): Qualified Codes: N30.00 - Acute cystitis without hematuria Fanta Bonner PA-C Jan 19, 2017 9:22 am
[2017-01-19] MEDS: SODIUM CHLOR 0.9% 1000 ML INJ 1,000 ML IV SCH ×2 (10:49→18:06)
[2017-01-19] MEDS: DOCUSATE SODIUM 50 MG/SENNA 8.6 MG TAB PO SCH ×2 (10:50→22:08)
[2017-01-19] MEDS: HEPARIN SODIUM - SQ 10,000 UNITS/ML VIAL SQ SCH ×2 (10:50→22:08)
[2017-01-19] MEDS: FERROUS SULFATE 325 MG (65 MG ELEMENTAL IRON) TAB PO SCH ×2 (10:50→17:10)
[2017-01-19] MEDS: SODIUM CHLORIDE 0.9% FLUSH 10 ML FLUSH IV FLUSH SCH ×2 (10:50→22:12)
[2017-01-19] MEDS: CITALOPRAM HYDROBROMIDE 40 MG TAB PO SCH (10:50)
[2017-01-19] MEDS: METOPROLOL TARTRATE 100 MG TAB PO SCH ×2 (10:50→22:08)
[2017-01-19] MEDS: CIPROFLOXACIN 400 MG PREMIX 200 ML IV SCH ×2 (10:51→22:08)
--- NOTE | 2017-01-19 10:54 | EKG ---
Date Performed: 01/18/2017 Time Performed: 18:14:46 PTAGE: 89 years EKG: SINUS TACHYCARDIA MODERATE ST DEPRESSION ABNORMAL ECG Compared to PREVIOUS TRACING sinus rate has increased, diffuse ST changes are new, consider ischemia PREVIOUS TRACIN01/15/2017 05.35 DOCTOR: Drew Rojo Interpretating Date/Time 01/19/2017 10:52:55
--- NOTE | 2017-01-19 10:55 | EKG ---
Date Performed: 01/19/2017 Time Performed: 04:27:41 PTAGE: 89 years EKG: SINUS TACHYCARDIA MODERATE ST DEPRESSION ABNORMAL ECG Compared to prior tracing no signific ant change PREVIOUS TRACING : 01/19/2017 04.27 DOCTOR: Drew Rojo Interpretating Date/Time 01/19/2017 10:53:25
--- NOTE | 2017-01-19 10:55 | EKG ---
Date Performed: 01/19/2017 Time Performed: 04:10:06 PTAGE: 89 years EKG: Sinus tachycardia MODERATE ST DEPRESSION ABNORMAL ECG Compared to prior tracing no signific ant change PREVIOUS TRACING : 01/18/2017 18.14 DOCTOR: Drew Rojo Interpretating Date/Time 01/19/2017 10:53:11
[2017-01-19] MEDS: LORazepam 0.5 MG TAB PO PRN (14:02)
[2017-01-19] MEDS ORDERED: LISINOPRIL 5 MG TAB PO ONE (15:30)
[2017-01-19] MEDS: ASPIRIN EC 81 MG TABEC PO SCH (15:37)
[2017-01-19 17:35] LABS: CREATINE KINASE 71 U/L (26-192)
[2017-01-19] MEDS: LATANOPROST 0.005% OPHT SOLN 2.5 ML BTL EACH EYE SCH (21:00)
[2017-01-19] MEDS: ACETAMINOPHEN 325 MG TAB PO PRN (22:24)
[2017-01-20 00:39] VITALS: BP 142/76; PULSE 107; RESP 17; TEMP 97.8; O2SAT 95
[2017-01-20] MEDS: SODIUM CHLOR 0.9% 1000 ML INJ 1,000 ML IV SCH ×2 (02:15→17:10)
[2017-01-20 04:13] VITALS: BP 133/61; PULSE 108; RESP 18; TEMP 98; O2SAT 94
[2017-01-20] MEDS: LEVOTHYROXINE SODIUM 75 MCG TAB PO SCH (05:46)
--- NOTE | 2017-01-20 06:46 | MB ---
cc: NARINDER BENITEZ DO DATE OF CONSULTATION 01/19/2017 REASON FOR CONSULTATION Abnormal EKG HISTORY OF PRESENT ILLNESS Margarita Lundberg is a pleasant 89-year-old female who originally presented due to increased lethargy. She was recently admitted after a fall with a patellar fracture, humerus fracture and right elbow fracture. While in the retirement facility, there was a concern for mental status change and she was transferred to our emergency room for further recommendations. It was noted on EKG since being here that there were possible ST depressions more prominent than previous EKGs. Because of this, I was consulted for further recommendations. In seeing her, she is currently cardiovascularly, hemodynamically and electrically stable. In talking to her, she is somewhat confused and not oriented with time thinking it is 2011. She denies shortness of breath. She does have chest pain, but this is reproducible with pressing on the center of her chest. PAST MEDICAL HISTORY 1. Arthritis 2. Anxiety 3. Hypertension 4. Hypothyroidism 5. Recent fall with multiple fractures. PAST SURGICAL HISTORY 1. Bilateral cataracts 2. Pelvic surgery (2015) 3. Ankle pins ALLERGIES 1. Codeine 1. Nitrofurantoin 2. Penicillin MEDICATIONS 1. Ceftin 250 mg b.i.d. for 7 days due to UTI. 2. Iron 325 mg b.i.d. 3. Catapres 0.1 mg b.i.d. as needed for blood pressure. 4. Clonidine patch 0.2 mg every 7 days 5. Metoprolol tartrate 100 mg b.i.d. 6. Diclofenac 50 mg t.i.d. as needed for headache 7. [place] 5/325 mg every 4 hours as needed for pain 8. Celexa 40 mg daily 9. Ativan 0.25 mg every 8 hours as needed for anxiety or agitation 10. Restoril 15 mg every night as needed for insomnia 11. Hydroxyzine 25 mg twice a day 12. Dorzolamide/Timolol one drop each eye b.i.d. 13. Latanoprost one drop in each I every night 14. Synthroid 75 mcg daily FAMILY HISTORY Denies sudden cardiac within the family. SOCIAL HISTORY Denies tobacco, alcohol or drug abuse. REVIEW OF SYSTEMS 14-systems were reviewed including osteopathic pertinent positives and negatives above otherwise negative. PHYSICAL EXAMINATION VITAL SIGNS: Temperature 98.1, heart rate 115, blood pressure 141/87, respirations 18, pulse ox 98% on room air. GENERAL: In general, the patient appears well in no acute distress. Alert, awake, but oriented to place only. She appears mildly demented telling stories of the past as if they were yesterday. HEAD, EYES, EARS, NOSE, AND THROAT: Extraocular muscles intact. Mucous membranes moist. NECK: Supple. No JVD at 45 degrees. No carotid bruits heard bilaterally. Carotid upstroke is brisk in nature. HEART: Tachycardiac, but regular rhythm. Positive first and second heart sounds. LUNGS: Clear to auscultation bilaterally. No wheezes, rales or rhonchi. ABDOMEN: Soft, nontender, nondistended. No organomegaly noted. EXTREMITIES: Right upper extremity is in a sling. Bilateral lower extremity in knee mobilizers. NEUROLOGIC: Awake and alert. No obvious cranial nerve deficits. SKIN: Warm, dry and intact. OSTEOPATHIC: No kyphoscoliosis, lordosis, or paraspinal tender points. LABORATORY FINDINGS Hemoglobin 8.5, hematocrit 25.7, platelets 282. Troponin negative x3. Potassium 3.4, BUN 15, creatinine 0.53. IMPRESSIONS 1. Chest pain noncardiac in nature which is reproducible with palpation of the chest wall possibly due to her recent fall. 2. EKG showing mild ST depressions throughout possibly due to her tachycardia versus ischemia. 3. Recent fall with multiple fractures. 4. Dementia with acute mental status change. 5. UTI RECOMMENDATIONS 1. Mrs. Lundberg does not appear to have acute coronary syndrome and would not treat her as such. 2. Her chest pain is noncardiac in nature and reproducible with palpation of the anterior chest wall. 3. As far as her EKG goes, it does have mild ST depressions which may be new overall compared to her previous, but the patient is currently asymptomatic and would not further workup at this time. 4. We will plan to check a 2-D echo to look at her overall left ventricular function, cardiac structure and possible valvopathies. 5. Lastly, would place her on aspirin 81 mg daily for completeness. 6. Further recommendations based on the hospital course. Thank you for allowing me to see Margarita Lundberg. If there are any questions, please do not hesitate to call. Narinder Benitez DO VGP/DJL /6:00 PM /6:32 AM
[2017-01-20 08:00] VITALS: BP 188/84; PULSE 115; RESP 19; TEMP 97; O2SAT 97
[2017-01-20] MEDS: SODIUM CHLORIDE 0.9% FLUSH 10 ML FLUSH IV FLUSH SCH ×2 (09:00→21:36)
[2017-01-20] MEDS: CIPROFLOXACIN 400 MG PREMIX 200 ML IV SCH ×2 (09:23→21:34)
[2017-01-20] MEDS: FERROUS SULFATE 325 MG (65 MG ELEMENTAL IRON) TAB PO SCH ×2 (09:23→17:46)
[2017-01-20] MEDS: CITALOPRAM HYDROBROMIDE 40 MG TAB PO SCH (09:24)
[2017-01-20] MEDS: LISINOPRIL 5 MG TAB PO SCH (09:24)
[2017-01-20] MEDS: METOPROLOL TARTRATE 100 MG TAB PO SCH ×2 (09:24→21:36)
[2017-01-20] MEDS: ASPIRIN EC 81 MG TABEC PO SCH (09:24)
[2017-01-20] MEDS: DORZOLAMIDE/TIMOLOL OPTH SOLN 10 ML BTL EACH EYE SCH ×2 (09:25→21:37)
[2017-01-20] MEDS: HEPARIN SODIUM - SQ 10,000 UNITS/ML VIAL SQ SCH ×2 (09:25→21:35)
[2017-01-20] MEDS: DOCUSATE SODIUM 50 MG/SENNA 8.6 MG TAB PO SCH ×2 (09:25→21:34)
[2017-01-20] MEDS: BRIMONIDINE TARTRATE 0.2% OPHT SOLN 5 ML BTL EACH EYE SCH ×2 (09:25→21:37)
[2017-01-20 09:40] LABS: AUTOMATED NEUTROPHIL # 5.1 TH/MM3 (1.8-7.7); BASOPHIL # 0.1 TH/MM3 (0-0.2); BASOPHIL % 0.8 % (0.0-2.0); EOSINOPHIL # 0.3 TH/MM3 (0-0.4); EOSINOPHIL % 3.9 % (0.0-4.0); HEMATOCRIT 27.1 % (35.0-46.0); HEMO FLAGS DIFF FINAL; LYMPH % 17.2 % (9.0-44.0); LYMPHOCYTE # 1.3 TH/MM3 (1.0-4.8); MEAN CELL VOLUME 95.6 FL (80.0-100.0); MEAN CORPUSCULAR HEMOGLOBIN 32.1 PG (27.0-34.0); MEAN CORPUSCULAR HGB CONC 33.6 % (32.0-36.0); MONO % 9.3 % (0.0-8.0); NEUT % 68.8 % (16.0-70.0); PLATELET COUNT 340 TH/MM3 (150-450); RED BLOOD COUNT 2.84 MIL/MM3 (4.00-5.30); RED CELL DISTRIBUTION WIDTH 12.8 % (11.6-17.2); WHITE BLOOD COUNT 7.4 TH/MM3 (4.0-11.0)
[2017-01-20 10:37] LABS: POTASSIUM 3.5 MEQ/L (3.5-5.1)
[2017-01-20 10:55] LABS: BICARBONATE 21.5 MEQ/L (21.0-32.0)
[2017-01-20 11:01] LABS: MAGNESIUM 1.6 MG/DL (1.5-2.5)
--- NOTE | 2017-01-20 11:10 | HHI.PR ---
Subjective Remarks Encephalopathy remains inhibits any viable history. Patient cannot recognize that I am her physician and she is in hospital. Acute kidney injury remains and will need further treatment. Objective Vital Signs Date Time Temp Pulse Resp B/P (MAP) Pulse Ox O2 Delivery O2 Flow Rate FiO2 01/20/17 08:00 97.0 115 19 188/84 (118) 97 01/20/17 04:13 98.0 108 18 133/61 (85) 94 01/20/17 00:39 97.8 107 17 142/76 (98) 95 01/19/17 23:00 121 01/19/17 20:31 96.2 119 18 135/92 (106) 94 01/19/17 14:57 98.1 115 18 141/87 (105) 98 01/19/17 12:00 108 01/19/17 11:58 98.5 108 18 161/95 (117) 99 I/O 01/19/17 01/19/17 01/19/17 01/20/17 01/20/17 01/20/17 07:00 15:00 23:00 07:00 15:00 23:00 Intake Total 925 ml 300 ml 772 ml 580 ml Output Total 850 ml 800 ml 2200 ml Balance 75 ml -500 ml 772 ml -1620 ml Intake Oral 380 ml IV Total 925 ml 300 ml 772 ml 200 ml Output Urine Total 850 ml 800 ml 2200 ml # Bowel Movements 1 Result Diagram: 01/20/1740 01/20/17 0840 Objective Remarks GENERAL: NAD, A&Ox0 HEAD: Normocephalic. NECK: Supple, trachea midline. No lymphadenopathy. EYES: No scleral icterus. No injection or drainage. CARDIOVASCULAR: Regular rate and rhythm without murmurs, gallops, or rubs. RESPIRATORY: Breath sounds equal bilaterally. No accessory muscle use. GASTROINTESTINAL: Abdomen soft, non-tender, nondistended. MUSCULOSKELETAL: No cyanosis, or edema. SKIN: Warm and dry. NEURO: No focal neurological deficitis. A/P Problem List: (1) Acute kidney injury ICD Code: N17.9 - Acute kidney failure, unspecified (2) UTI (urinary tract infection) ICD Code: N39.0 - Urinary tract infection, site not specified Status: Acute (3) Dehydration ICD Code: E86.0 - Dehydration (4) Hypokalemia ICD Code: E87.6 - Hypokalemia (5) Encephalopathy ICD Code: G93.40 - Encephalopathy, unspecified Assessment and Plan Assessment and Plan 89-year-old female admitted secondary to urinary tract infection with encephalopathy on baseline dementia. Urinary tract infection Follow urine cultures Continue ciprofloxacin Follow clinically for improvement Acute kidney injury Dehydration Continue IV hydration Monitor renal function If patient shows signs of renal failure will consult nephrology Acute metabolic encephalopathy related to infection Dementia Treat infection Supportive care Hypokalemia Hypomagnesemia Follow electrolytes Replace as needed DVT Prophylaxis Heparin sq Problem Qualifiers (1) UTI (urinary tract infection): Qualified Codes: N30.00 - Acute cystitis without hematuria Mark Hernanedz MD Jan 20, 2017 11:10
[2017-01-20 12:00] VITALS: BP 135/58; PULSE 71; RESP 21; TEMP 96.5; O2SAT 94
[2017-01-20 16:00] VITALS: BP 140/85; PULSE 120; RESP 17; TEMP 96; O2SAT 97
[2017-01-20] MEDS: LORazepam 0.5 MG TAB PO PRN (17:48)
[2017-01-20] MEDS: ACETAMINOPHEN 325 MG TAB PO PRN (17:49)
--- NOTE | 2017-01-20 19:57 | PD.CARD.PN ---
Subjective Subjective Remarks Patient was seen earlier today Denies chest pain Angry and demented, unable to get further history or examine Objective Medications Current Medications Medications (Trade) Dose Ordered Sig/Helen Route Start Time Stop Time Status Last Admin Ciprofloxacin/ Dextrose 200 ml @ 200 mls/hr Q12H IV 01/19/17 09:00 01/20/17 09:23 Sodium Chloride 1,000 ml @ 100 mls/hr Q10H IV 01/18/17 22:00 01/20/17 17:10 (NS Flush) 2 ml UNSCH PRN IV FLUSH 01/18/17 21:45 (NS Flush) 2 ml BID IV FLUSH 01/19/17 09:00 01/19/17 22:12 (Zofran Inj) 4 mg Q6H PRN IVP 01/18/17 21:45 (Tylenol) 650 mg Q6H PRN PO 01/18/17 21:45 01/20/17 17:49 (Veronique-Colace) 1 tab BID PO 01/19/17 09:00 01/20/17 09:25 (Milk Of Magnesia Liq) 30 ml Q12H PRN PO 01/18/17 21:45 (Senokot) 17.2 mg Q12H PRN PO 01/18/17 21:45 (Dulcolax Supp) 10 mg DAILY PRN RECTAL 01/18/17 21:45 (Lactulose Liq) 30 ml DAILY PRN PO 01/18/17 21:45 (Alphagan 0.2% Opth Soln) 1 drop BID EACH EYE 01/19/17 09:00 01/20/17 09:25 (CeleXA) 40 mg DAILY PO 01/19/17 09:00 01/20/17 09:24 (Catapres-Tts 0.2 Mg Patch.7d) 1 patch Q7D T-DERMAL 01/18/17 22:00 01/18/17 22:23 (Cosopt 2-0.5% Opth Soln) 1 drop BID EACH EYE 01/19/17 09:00 01/20/17 09:25 (Ferrous Sulfate) 325 mg BIDPC PO 01/19/17 09:00 01/20/17 09:23 (Xalatan 0.005% Opth Soln) 1 drop HS EACH EYE 01/19/17 21:00 (Synthroid) 75 mcg DAILY@0600 PO 01/19/17 06:00 01/20/17 05:46 (Ativan) 0.25 mg Q8H PRN PO 01/18/17 21:45 01/20/17 17:48 (Lopressor) 100 mg BID PO 01/19/17 09:00 01/20/17 09:24 (Restoril) 15 mg HS PRN PO 01/18/17 21:45 01/19/17 22:23 Miscellaneous Information 1 Q7D T-DERMAL 01/18/17 22:00 01/18/17 22:23 (Heparin Inj) 5,000 units Q12HR SQ 01/19/17 09:00 01/20/17 09:25 (Ecotrin Ec) 81 mg DAILY PO 01/19/17 15:00 01/20/17 09:24 (Prinivil) 5 mg DAILY PO 01/20/17 09:00 01/20/17 09:24 Vital Signs / I&O Vital Signs Date Time Temp Pulse Resp B/P (MAP) Pulse Ox O2 Delivery O2 Flow Rate FiO2 01/20/17 16:00 96.0 120 17 140/85 (103) 97 01/20/17 12:00 96.5 71 21 135/58 (83) 94 01/20/17 08:00 97.0 115 19 188/84 (118) 97 01/20/17 04:13 98.0 108 18 133/61 (85) 94 01/20/17 00:39 97.8 107 17 142/76 (98) 95 01/19/17 23:00 121 01/19/17 20:31 96.2 119 18 135/92 (106) 94 I/O 01/19/17 01/19/17 01/19/17 01/20/17 01/20/17 01/20/17 07:00 15:00 23:00 07:00 15:00 23:00 Intake Total 925 ml 300 ml 772 ml 580 ml 1320 ml Output Total 850 ml 800 ml 2200 ml 1700 ml Balance 75 ml -500 ml 772 ml -1620 ml -380 ml Intake Oral 380 ml 120 ml IV Total 925 ml 300 ml 772 ml 200 ml 1200 ml Output Urine Total 850 ml 800 ml 2200 ml 1700 ml # Bowel Movements 1 4 Physical Exam GENERAL: Alert and awake, demented SKIN: Warm and dry. HEAD: Atraumatic. Normocephalic. EYES: Pupils equal and round. No scleral icterus. No injection or drainage. ENT: No nasal bleeding or discharge. Mucous membranes pink and moist. NECK: Trachea midline. No JVD. CARDIOVASCULAR: Regular rate and rhythm. RESPIRATORY: No accessory muscle use. Clear to auscultation. Breath sounds equal bilaterally. GASTROINTESTINAL: Abdomen soft, non-tender, nondistended. Hepatic and splenic margins not palpable. MUSCULOSKELETAL: Extremities without clubbing, cyanosis, or edema. Right arm in a sling NEUROLOGICAL: Awake and alert. Laboratory Laboratory Tests Test 01/20/17 08:40 White Blood Count 7.4 TH/MM3 Red Blood Count 2.84 MIL/MM3 Hemoglobin 9.1 GM/DL Hematocrit 27.1 % Mean Corpuscular Volume 95.6 FL Mean Corpuscular Hemoglobin 32.1 PG Mean Corpuscular Hemoglobin Concent 33.6 % Red Cell Distribution Width 12.8 % Platelet Count 340 TH/MM3 Mean Platelet Volume 6.7 FL Neutrophils (%) (Auto) 68.8 % Lymphocytes (%) (Auto) 17.2 % Monocytes (%) (Auto) 9.3 % Eosinophils (%) (Auto) 3.9 % Basophils (%) (Auto) 0.8 % Neutrophils # (Auto) 5.1 TH/MM3 Lymphocytes # (Auto) 1.3 TH/MM3 Monocytes # (Auto) 0.7 TH/MM3 Eosinophils # (Auto) 0.3 TH/MM3 Basophils # (Auto) 0.1 TH/MM3 CBC Comment DIFF FINAL Differential Comment Blood Urea Nitrogen 8 MG/DL Creatinine 0.62 MG/DL Random Glucose 111 MG/DL Calcium Level 8.5 MG/DL Magnesium Level 1.6 MG/DL Sodium Level 141 MEQ/L Potassium Level 3.5 MEQ/L Chloride Level 110 MEQ/L Carbon Dioxide Level 21.5 MEQ/L Anion Gap 10 MEQ/L Estimat Glomerular Filtration Rate 91 ML/MIN Assessment and Plan Problem List: (1) Encephalopathy ICD Codes: G93.40 - Encephalopathy, unspecified (2) Dehydration ICD Codes: E86.0 - Dehydration (3) Tachycardia ICD Codes: R00.0 - Tachycardia, unspecified Status: Acute (4) Altered mental status ICD Codes: R41.82 - Altered mental status, unspecified Status: Acute (5) Anemia ICD Codes: D64.9 - Anemia, unspecified Status: Acute (6) Fall ICD Codes: W19.XXXA - Unspecified fall, initial encounter Status: Acute (7) Delirium ICD Codes: R41.0 - Disorientation, unspecified Status: Acute (8) Dementia ICD Codes: F03.90 - Unspecified dementia without behavioral disturbance Status: Acute Assessment and Plan 1) Abnormal EKG Trops negative Yesterday chest pain was reproducible with palpation of the chest wall, otherwise asymptomatic 2) EF grossly normal on echo 3) No further cardiovascular work up, will see PRN, call with questions Problem Qualifiers (1) Altered mental status: Qualified Codes: R41.82 - Altered mental status, unspecified (2) Anemia: Qualified Codes: D64.9 - Anemia, unspecified Narinder Wilkinson DO Jan 20, 2017 19:57
[2017-01-20 20:15] VITALS: BP 168/88; PULSE 102; RESP 17; TEMP 99.2; O2SAT 97
[2017-01-20] MEDS: LATANOPROST 0.005% OPHT SOLN 2.5 ML BTL EACH EYE SCH (21:00)
[2017-01-21] VITALS (7 sets, daily range): BP systolic 141–179; BP diastolic 78–96; PULSE 112–128; RESP 16–19; TEMP 96–99.4; O2SAT 94–100
[2017-01-21] MEDS: LORazepam 0.5 MG TAB PO PRN (03:12)
[2017-01-21] MEDS: SODIUM CHLOR 0.9% 1000 ML INJ 1,000 ML IV SCH ×3 (06:22→21:43)
[2017-01-21] MEDS: LEVOTHYROXINE SODIUM 75 MCG TAB PO SCH (06:22)
[2017-01-21 08:24] LABS: AUTOMATED NEUTROPHIL # 3.7 TH/MM3 (1.8-7.7); BASOPHIL # 0.1 TH/MM3 (0-0.2); BASOPHIL % 1.4 % (0.0-2.0); EOSINOPHIL # 0.2 TH/MM3 (0-0.4); HEMATOCRIT 26.9 % (35.0-46.0); HEMO FLAGS DIFF FINAL; LYMPH % 17.8 % (9.0-44.0); MEAN CELL VOLUME 95.6 FL (80.0-100.0); MEAN CORPUSCULAR HEMOGLOBIN 33.7 PG (27.0-34.0); MEAN CORPUSCULAR HGB CONC 35.3 % (32.0-36.0); MONO % 11.9 % (0.0-8.0); NEUT % 64.9 % (16.0-70.0); PLATELET COUNT 358 TH/MM3 (150-450); RED BLOOD COUNT 2.81 MIL/MM3 (4.00-5.30); RED CELL DISTRIBUTION WIDTH 12.6 % (11.6-17.2); WHITE BLOOD COUNT 5.7 TH/MM3 (4.0-11.0)
[2017-01-21] MEDS: SODIUM CHLORIDE 0.9% FLUSH 10 ML FLUSH IV FLUSH SCH ×2 (08:27→21:00)
[2017-01-21] MEDS: CIPROFLOXACIN 400 MG PREMIX 200 ML IV SCH ×2 (08:32→21:44)
[2017-01-21] MEDS: METOPROLOL TARTRATE 100 MG TAB PO SCH ×2 (08:32→21:45)
[2017-01-21] MEDS: ASPIRIN EC 81 MG TABEC PO SCH (08:33)
[2017-01-21] MEDS: FERROUS SULFATE 325 MG (65 MG ELEMENTAL IRON) TAB PO SCH ×2 (08:33→17:34)
[2017-01-21] MEDS: CITALOPRAM HYDROBROMIDE 40 MG TAB PO SCH (08:33)
[2017-01-21] MEDS: DOCUSATE SODIUM 50 MG/SENNA 8.6 MG TAB PO SCH ×2 (08:33→21:44)
[2017-01-21] MEDS: LISINOPRIL 5 MG TAB PO SCH (08:33)
[2017-01-21] MEDS: HEPARIN SODIUM - SQ 10,000 UNITS/ML VIAL SQ SCH ×2 (08:34→21:45)
[2017-01-21] MEDS: DORZOLAMIDE/TIMOLOL OPTH SOLN 10 ML BTL EACH EYE SCH ×2 (08:35→21:43)
[2017-01-21] MEDS: BRIMONIDINE TARTRATE 0.2% OPHT SOLN 5 ML BTL EACH EYE SCH ×2 (08:35→21:44)
[2017-01-21 09:23] LABS: ALT (GPT) 14 U/L (10-53); ANION GAP 9 MEQ/L (5-15); AST (GOT) 32 U/L (15-37); BICARBONATE 23.2 MEQ/L (21.0-32.0); BLOOD UREA NITROGEN 7 MG/DL (7-18); CHLORIDE 107 MEQ/L (98-107); GLOMERULAR FILTRATION RATE 92 ML/MIN (>89); POTASSIUM 3.3 MEQ/L (3.5-5.1); SODIUM (NA) 139 MEQ/L (136-145)
[2017-01-21 09:26] LABS: ALKALINE PHOSPHATASE 68 U/L (45-117); TOTAL BILIRUBIN ADULT 0.7 MG/DL (0.2-1.0)
[2017-01-21] MEDS: traMADol HCL 50 MG TAB PO PRN ×2 (11:36→14:49)
[2017-01-21] MEDS ORDERED: MORPHINE SULFATE 2 MG/ML INJ IV PUSH ONE (12:45)
--- NOTE | 2017-01-21 16:59 | HHI.PR ---
Subjective Remarks Patient remains encephalopathic. Primary problem right now she won't cooperate with by mouth intake. She's not stable for discharge if she is not taking anything by mouth. She will need to discharge on antibiotics for UTI and needs to be old to be compliant with taking by mouth intake. Objective Vital Signs Date Time Temp Pulse Resp B/P (MAP) Pulse Ox O2 Delivery O2 Flow Rate FiO2 01/21/17 16:00 96.0 112 18 165/83 (110) 96 01/21/17 12:00 97.0 112 19 179/96 (123) 100 01/21/17 08:00 99.4 112 16 172/83 (112) 96 01/21/17 03:53 96.8 128 17 168/90 (116) 95 01/21/17 00:05 97.8 125 18 173/93 (119) 94 01/20/17 20:15 99.2 102 17 168/88 (114) 97 I/O 01/20/17 01/20/17 01/20/17 01/21/17 01/21/17 01/21/17 07:00 15:00 23:00 07:00 15:00 23:00 Intake Total 580 ml 1320 ml 1440 ml 200 ml Output Total 2200 ml 1700 ml 1600 ml Balance -1620 ml -380 ml -160 ml 200 ml Intake Oral 380 ml 120 ml 240 ml IV Total 200 ml 1200 ml 1200 ml 200 ml Output Urine Total 2200 ml 1700 ml 1600 ml # Bowel Movements 4 Result Diagram: 01/21/17 0800 01/21/17 0800 Objective Remarks GENERAL: NAD, A&Ox0 HEAD: Normocephalic. NECK: Supple, trachea midline. No lymphadenopathy. EYES: No scleral icterus. No injection or drainage. CARDIOVASCULAR: Regular rate and rhythm without murmurs, gallops, or rubs. RESPIRATORY: Breath sounds equal bilaterally. No accessory muscle use. GASTROINTESTINAL: Abdomen soft, non-tender, nondistended. MUSCULOSKELETAL: No cyanosis, or edema. SKIN: Warm and dry. NEURO: No focal neurological deficitis. A/P Problem List: (1) Acute kidney injury ICD Code: N17.9 - Acute kidney failure, unspecified (2) UTI (urinary tract infection) ICD Code: N39.0 - Urinary tract infection, site not specified Status: Acute (3) Dehydration ICD Code: E86.0 - Dehydration (4) Hypokalemia ICD Code: E87.6 - Hypokalemia (5) Encephalopathy ICD Code: G93.40 - Encephalopathy, unspecified Assessment and Plan Assessment and Plan 89-year-old female admitted secondary to urinary tract infection with encephalopathy on baseline dementia. Plan for discharge today he is held. Compliance with by mouth intake of medications needed prior to discharge. Urinary tract infection Follow urine cultures Continue ciprofloxacin Follow clinically for improvement Acute kidney injury Dehydration Continue IV hydration Monitor renal function If patient shows signs of renal failure will consult nephrology Acute metabolic encephalopathy related to infection Dementia Treat infection Supportive care Hypokalemia Hypomagnesemia Follow electrolytes Replace as needed DVT Prophylaxis Heparin sq Problem Qualifiers (1) UTI (urinary tract infection): Qualified Codes: N30.00 - Acute cystitis without hematuria Mark Hernandez MD Jan 21, 2017 16:59
[2017-01-21] MEDS ORDERED: MORPHINE SULFATE 2 MG/ML INJ IM PRN (17:00)
[2017-01-21] MEDS: LATANOPROST 0.005% OPHT SOLN 2.5 ML BTL EACH EYE SCH (21:00)
[2017-01-22 00:45] VITALS: BP 133/71; PULSE 119; RESP 16; TEMP 96.3; O2SAT 97
[2017-01-22] MEDS: LEVOTHYROXINE SODIUM 75 MCG TAB PO SCH (04:10)
[2017-01-22] MEDS: SODIUM CHLOR 0.9% 1000 ML INJ 1,000 ML IV SCH (04:10)
[2017-01-22 05:40] VITALS: BP 169/83; PULSE 108; RESP 16; TEMP 96.5; O2SAT 96
[2017-01-22] MEDS: LORazepam 0.5 MG TAB PO PRN (05:46)
[2017-01-22 08:00] VITALS: BP 171/78; PULSE 109; RESP 18; TEMP 99.2; O2SAT 96
[2017-01-22] MEDS: CIPROFLOXACIN 400 MG PREMIX 200 ML IV SCH (08:29)
[2017-01-22] MEDS: SODIUM CHLORIDE 0.9% FLUSH 10 ML FLUSH IV FLUSH SCH (08:29)
[2017-01-22] MEDS: DOCUSATE SODIUM 50 MG/SENNA 8.6 MG TAB PO SCH (08:30)
[2017-01-22] MEDS: ASPIRIN EC 81 MG TABEC PO SCH (08:30)
[2017-01-22] MEDS: METOPROLOL TARTRATE 100 MG TAB PO SCH (08:30)
[2017-01-22] MEDS: LISINOPRIL 5 MG TAB PO SCH (08:30)
[2017-01-22] MEDS: FERROUS SULFATE 325 MG (65 MG ELEMENTAL IRON) TAB PO SCH (08:30)
[2017-01-22] MEDS: CITALOPRAM HYDROBROMIDE 40 MG TAB PO SCH (08:30)
[2017-01-22] MEDS: HEPARIN SODIUM - SQ 10,000 UNITS/ML VIAL SQ SCH (08:31)
[2017-01-22] MEDS: BRIMONIDINE TARTRATE 0.2% OPHT SOLN 5 ML BTL EACH EYE SCH (08:38)
[2017-01-22] MEDS: DORZOLAMIDE/TIMOLOL OPTH SOLN 10 ML BTL EACH EYE SCH (08:38)
[2017-01-22] MEDS ORDERED: LACTTAB8 PO (09:21)
[2017-01-22] MEDS ORDERED: BACT800T5 PO (09:21)
--- NOTE | 2017-01-22 11:26 | HHI.DS ---
Discharge Summary Admission Date Jan 19, 2017 at 09:41 Discharge Date: Jan 22, 2017 Admitting Diagnosis UTI, altered mental status, tachycardia (1) Encephalopathy ICD Code: G93.40 - Encephalopathy, unspecified Diagnosis: Principal (2) UTI (urinary tract infection) ICD Code: N39.0 - Urinary tract infection, site not specified Diagnosis: Principal Status: Acute (3) Hypokalemia ICD Code: E87.6 - Hypokalemia Diagnosis: Secondary (4) Dehydration ICD Code: E86.0 - Dehydration Diagnosis: Secondary Procedures None Brief History - From Admission This is an 89-year-old female with a PMH of Anxiety, Dementia, Hypothyroidism and Glaucoma who was brought to the ER by EMS from SNF secondary to AMS. Per report, patient noted to be more lethargic than usual. Recent admit 01/14-01/17 for fall w/ Patellar Fx, Humerus Fx and Right Elbow Fx, s/p eval by Ortho w / conservative management, episode of AMS during that admission thought to be secondary to UTI, s/p IV Abx, d/c'd to Rehab w/ Ceftin 250mg BID x7 days. Today , noted to be confused by staff. Pt unable to provide much history due to confusion. On arrival, BP 177/73, HR 100, O2 sat 98% on RA, Afebrile. CBC at baseline. K+ 3.2. GFR 71. Lactic Acid normal. Troponin negative. INR 1.0. UA positive for UTI. Urine Drug Screen negative. Alcohol negative. CT Head with no acute findings. CXR with minimal basilar opacity mostly atelectasis. S /p Blood/Urine Cultures, Cipro IV in ER. CBC/BMP: 01/21/17 0800 01/21/17 0800 Significant Findings Laboratory Tests Test 01/19/17 16:23 01/20/17 08:40 01/21/17 08:00 Troponin I LESS THAN 0.02 NG/ML Red Blood Count 2.84 MIL/MM3 (4.00-5.30) 2.81 MIL/MM3 (4.00-5.30) Hemoglobin 9.1 GM/DL (11.6-15.3) 9.5 GM/DL (11.6-15.3) Hematocrit 27.1 % (35.0-46.0) 26.9 % (35.0-46.0) Mean Platelet Volume 6.7 FL (7.0-11.0) 6.5 FL (7.0-11.0) Monocytes (%) (Auto) 9.3 % (0.0-8.0) 11.9 % (0.0-8.0) Random Glucose 111 MG/DL (74-106) 116 MG/DL (74-106) Chloride Level 110 MEQ/L (98-107) Albumin 2.7 GM/DL (3.4-5.0) Potassium Level 3.3 MEQ/L (3.5-5.1) PE at Discharge GENERAL: Well-nourished, well-developed pleasantly demented/confused elderly female patient in [facility]. SKIN: Warm and dry. No rash. HEENT: Normocephalic. Atraumatic.Pupils equal and round. Mucous membranes pink and moist. CARDIOVASCULAR: Tachycardic, regular rhythm. S1, S2 noted. No murmur appreciated. RESPIRATORY: No accessory muscle use. Clear to auscultation. Breath sounds equal bilaterally. GASTROINTESTINAL: Abdomen soft, non-tender, nondistended. Normoactive bowel sounds x4. MUSCULOSKELETAL: No obvious deformities. Extremities without clubbing, cyanosis , or edema. RUE in sling. BLE in knee immobilizers. 2+ bilateral radial and pedal pulses. NEUROLOGICAL: Awake and alert. No obvious cranial nerve deficits. Motor grossly within normal limits. 5/5 muscle strength in bilateral upper and lower extremities. Normal speech. PSYCHIATRIC: insight and judgment poor. Hospital Course Mrs. Lundberg is an 89-year-old female. She was admitted secondary to urinary tract infection with encephalopathy. Antibiotics were started and she has had some good response. She has dementia at baseline. Part of the exacerbation witnessed here had to do with her level of pain and she was not taking by mouth intake. When we supplemented her with some IV morphine and her pain improved she started to be more cooperative with by mouth intake. She is now stable for discharge back to care home facility on by mouth Bactrim and continuation of her pain treatment for her recent right arm fracture. Pt Condition on Discharge: Stable Discharge Disposition: Discharge to SNF Discharge Time: > 30 minutes Discharge Instructions DIET: Follow Instructions for: As Tolerated, No Restrictions Speech Therapy-Diet Recommends: Pureed Activities you can perform: Regular-No Restrictions Follow up Referrals: PCP Follow-up - 2 Weeks New Medications: Lactobacillus Acidophilus (Lactobacillus Acidophilus) 1 Billion Cell Tab 1 TAB PO TIDAC for Nutritional Supplement, #30 TAB 0 Refills Sulfamethoxazole-Trimethoprim (Bactrim DS) 800-160 Mg Tab 1 TAB PO BID for Infection, #14 TAB 0 Refills Continued Medications: Acetaminophen (Tylenol) 325 Mg Tab 325 MG PO Q4H PRN for FEVER, TAB 0 Refills Acetaminophen (Tylenol) 325 Mg Tab 650 MG PO Q4H PRN for PAIN SCALE 4 TO 10, TAB 0 Refills Bisacodyl Supp (Dulcolax Supp) 10 Mg Supp 10 MG RECTAL DAILY PRN for CONSTIPATION, #12 SUPP 0 Refills Brimonidine Opth Drops (Brimonidine Opth Drops) 0.2% Soln 1 DROP EACH EYE BID for Intraocular pressure, #1 BOTTLE 0 Refills Calcium Carbonate-Vitamin D (Calcium 600+D 200) 600-200 Mg-Unit Tab 1 TAB PO BID for Nutritional Supplement, #90 TAB 0 Refills Citalopram (Celexa) 40 Mg Tab 40 MG PO DAILY for Control Depression, #30 TAB 0 Refills Clonidine (Catapres) 0.1 Mg Tab 0.1 MG PO BID PRN for SBP>160, DBP>90, #60 TAB 0 Refills Clonidine 168 HR Patch (Clonidine 168 HR Patch) 0.2 Mg/24 Hr Patch 1 PATCH T-DERMAL Q7D for Blood Pressure Management, #4 PATCH 0 Refills Diclofenac Potassium (Diclofenac Potassium) 50 Mg Tab 50 MG PO TID PRN for headache, #90 TAB 0 Refills Dorzolamide-Timolol Opth Drops (Dorzolamide-Timolol Opth Drops) 22.3-6.8 Mg/Ml Soln 1 DROP EACH EYE BID for Glaucoma, BOTTLE 0 Refills Ferrous Sulfate (Ferrous Sulfate) 325 Mg (65 Mg Iron) Tablet 325 MG PO BIDPC for Nutritional Supplement, #60 TAB 0 Refills Hydrocodone-Acetaminophen ([place]) 5-325 mg Tab 1 TAB PO Q4H PRN for PAIN, #40 TAB 0 Refills Hydroxyzine HCl (Hydroxyzine HCl) 25 Mg Tab 25 MG PO BID, TAB 0 Refills Latanoprost Opth Drops (Latanoprost Opth Drops) 0.005% Drops 1 DROP EACH EYE HS for Glaucoma, #2.5 ML 0 Refills Refrigerate until opened. Levothyroxine (Levothyroxine) 75 Mcg Tab 75 MCG PO DAILY for Thyroid, #30 TAB 0 Refills Lorazepam (Ativan) 0.5 Mg Tab 0.25 MG PO Q8H PRN for ANXIETY AND/OR AGITATION, TAB 0 Refills Melatonin (Melatonin) 5 Mg Tab 5 MG PO HS for Provide Good Sleep, TAB 0 Refills Metoprolol Tartrate (Metoprolol Tartrate) 100 Mg Tab 100 MG PO BID, #60 TAB 0 Refills Sennosides (Senna-Tabs) 8.6 Mg Tab 2 TAB PO BID for Constipation, #30 TAB 0 Refills Temazepam (Restoril) 15 Mg Cap 15 MG PO HS PRN for INSOMNIA, #30 CAP 0 Refills Vitamins C & E (Cranberry Urinary Comfort) 1 Cap 1 CAP PO DAILY for Urinary Symptom Managemen, CAP 0 Refills Discontinued Medications: Cefuroxime (Ceftin) 250 Mg Tab 250 MG PO BID for uti for 7 Days, #14 TAB Mark Hernandez MD Jan 22, 2017 11:26
[2017-01-22] MEDS ORDERED: NORC5TAB PO (14:51)
[2017-01-23] MEDS ORDERED: CRAN425C2 PO (18:41)
== END 2017-01-22 12:12 | DRG 682 ==
LOC: NEPC 17:27 → NEDA 21:14 → NEPGCP 01-19 00:02 → OBSVTOIN 01-19 09:41 → N07A 01-19 16:48
PROVIDERS: ADMIT Hospitalist; ATTEND Hospitalist
DX: N17.9 Acute kidney failure, unspecified (principal); G93.41 Metabolic encephalopathy; N30.00 Acute cystitis without hematuria; E86.0 Dehydration; F03.90 Unspecified dementia, unspecified severity, without behavioral disturbance, psychotic disturbance, mood disturbance, and anxiety; E83.42 Hypomagnesemia; D64.9 Anemia, unspecified; I10 Essential (primary) hypertension; E03.9 Hypothyroidism, unspecified; H40.9 Unspecified glaucoma; F41.9 Anxiety disorder, unspecified; R94.31 Abnormal electrocardiogram [ECG] [EKG]; R00.0 Tachycardia, unspecified; M19.90 Unspecified osteoarthritis, unspecified site; E87.6 Hypokalemia; R07.89 Other chest pain; Z87.440 Personal history of urinary (tract) infections; Z91.81 History of falling; S42.401D Unspecified fracture of lower end of right humerus, subsequent encounter for fracture with routine healing; S42.301D Unspecified fracture of shaft of humerus, right arm, subsequent encounter for fracture with routine healing
CPT/HCPCS: 70450; 71010; 76937; 80048; 80053; 80307; 81001; 82550; 83605; 83735; 84443; 84484; 85025; 85610; 85730; 87040; 87086; 93005; 96361; 96365; G0378; J0744; J1644; J2270; J3475; J3480; J7030

== ENCOUNTER 2017-01-23 17:36 | Emergency (ER) | payer MEDICARE, OTHER ==
[~2017-01-23 17:36] MED LIST changes: +BACT800T5 PO; -CEFU1TAB42 PO; +FERR325T18 PO; -FERR325T8 PO; +LACTTAB8 PO; +MELA5 PO; -MELA5TAB15 PO
[2017-01-23 17:50] VITALS: BP 194/97; PULSE 108; RESP 16; TEMP 98.9; O2SAT 100
--- NOTE | 2017-01-23 17:51 | PD ---
HPI Chief Complaint: Altered Mental Status Time Seen by Provider: 17:48 Travel History International Travel<30 days: No Contact w/Intl Traveler<30days: No Traveled to known affect area: No History of Present Illness HPI 89 YO F presents to the ED via EMS from her SNF for evaluation of AMS. Per the EMS report the patient is normally verbal and alert to self only. SNF staff noticed that the patient was nonverbal and nonresponsive ~ 40 minutes before arrival. On presentation the patient is looking around the room but closes her eyes in response to any questioning. She does not follow instructions. She is unable to provide any meaningful history. She suffered a fall recently and has the legs in bilateral knee immobilizers in the right arm in a splint and sling. She is currently being treated for a UTI. She has a DNR in her paperwork. PFSH Past Medical History Arthritis: Yes (HANDS) Asthma: No Autoimmune Disease: No Anxiety: Yes Heart Rhythm Problems: No Cancer: No Cardiovascular Problems: Yes High Cholesterol: No Chest Pain: No Congestive Heart Failure: No COPD: No Cerebrovascular Accident: No Dementia: Yes Diabetes: No Endocrine: Yes GERD: No Glaucoma: Yes Genitourinary: Yes (URINARY INCONTINENCE, UTI'S) Headaches: Yes Hiatal Hernia: No Hypertension: Yes Immune Disorder: No Kidney Stones: No Musculoskeletal: Yes Neurologic: Yes Psychiatric: Yes Reproductive: No Respiratory: Yes Migraines: Yes Seizures: No Shingles: Yes Sleep Apnea: No Thyroid Disease: Yes (HYPOTHYROIDISM) Ulcer: No Menopausal: Yes : 3 Para: 3 Past Surgical History Abdominal Surgery: No AICD: No Arteriovenous Shunt: No Cardiac Surgery: No Eye Surgery: Yes (IMPLANT, CATARACTS) Genitourinary Surgery: No Gynecologic Surgery: No Insulin Pump: No Joint Replacement: Yes Oral Surgery: No Pacemaker: No Thoracic Surgery: No Other Surgery: Yes Social History Alcohol Use: No Tobacco Use: No Substance Use: No Allergies-Medications (Allergen,Severity, Reaction): Coded Allergies: codeine (Unverified Allergy, Intermediate, Nausea/Vomiting, 01/23/17) nitrofurantoin (Unverified Allergy, Unknown, chest pain, 01/23/17) penicillin G (Unverified Adverse Reaction, Intermediate, headache, ) Reported Meds & Prescriptions Reported Meds & Active Scripts Active Bactrim DS (Sulfamethoxazole-Trimethoprim) 800-160 Mg Tab 1 Tab PO BID Lactobacillus Acidophilus 1 Billion Cell Tab 1 Tab PO TIDAC Calcium 600+D 200 (Calcium Carbonate-Vitamin D) 600-200 Mg-Unit Tab 1 Tab PO BID [place] (Hydrocodone-Acetaminophen) 5-325 mg Tab 1 Tab PO Q4H PRN Reported Cranberry (Cranberry (Vaccinium Macrocarpon)) 425 Mg Cap 425 Mg PO DAILY Brimonidine Opth Drops (Brimonidine Tartrate) 0.2% Soln 1 Drop EACH EYE BID Latanoprost Opth Drops (Latanoprost) 0.005% Drops 1 Drop EACH EYE HS Refrigerate until opened. Dorzolamide-Timolol Opth Drops 22.3-6.8 Mg/Ml Soln 1 Drop EACH EYE BID Dulcolax Supp (Bisacodyl) 10 Mg Supp 10 Mg RECTAL DAILY PRN Tylenol (Acetaminophen) 325 Mg Tab 650 Mg PO Q4H PRN Tylenol (Acetaminophen) 325 Mg Tab 650 Mg PO Q4H PRN Senna-Tabs (Sennosides) 8.6 Mg Tab 17.2 Mg PO BID Restoril (Temazepam) 15 Mg Cap 15 Mg PO HS PRN Metoprolol Tartrate 100 Mg Tab 100 Mg PO BID Melatonin 5 Mg Tab 5 Mg PO HS Levothyroxine (Levothyroxine Sodium) 75 Mcg Tab 75 Mcg PO DAILY Hydroxyzine HCl 25 Mg Tab 25 Mg PO BID Ferrous Sulfate 325 Mg (65 Mg Iron) Tablet 325 Mg PO BIDPC Clonidine 168 HR Patch (Clonidine HCl) 0.2 Mg/24 Hr Patch 1 Patch T-DERMAL Q7D Celexa (Citalopram Hydrobromide) 40 Mg Tab 40 Mg PO DAILY Catapres (Clonidine) 0.1 Mg Tab 0.1 Mg PO BID PRN Diclofenac Potassium 50 Mg Tab 50 Mg PO TID PRN Ativan (Lorazepam) 0.5 Mg Tab 0.25 Mg PO Q8H PRN Review of Systems Except as stated in HPI: all other systems reviewed are Neg Physical Exam Exam Limitations: Clinical Condition Narrative GENERAL: Thin, elderly white female in no acute distress. SKIN: Focused skin assessment warm/dry. HEAD: Normocephalic. Atraumatic. EYES: No scleral icterus. No injection or drainage. Pupils 4-5 mm bilaterally, round and responsive. NECK: Supple, trachea midline. No JVD or lymphadenopathy. CARDIOVASCULAR: Regular rate and rhythm without murmurs, gallops, or rubs. 2+ DP and radial pulses bilaterally. RESPIRATORY: Breath sounds clear and equal bilaterally. No accessory muscle use. GASTROINTESTINAL: Abdomen soft, non-tender, nondistended. Active bowel sounds. Voluntary guarding. MUSCULOSKELETAL: No cyanosis, or edema. Bilateral lower extremities in knee immobilizers. Homans sign negative bilaterally. Right arm in a splint. Palpable radial pulse in the right. BACK: Nontender without obvious deformity. Data Data Last Documented VS Vital Signs Date Time Temp Pulse Resp B/P (MAP) Pulse Ox O2 Delivery O2 Flow Rate FiO2 01/24/17 10:11 97.8 143/71 (95) 100 01/24/17 06:36 110 16 Room Air 01/23/17 19:12 2.00 Orders Orders Ammonia (01/23/17 17:49) Complete Blood Count With Diff (01/23/17 17:49) Comprehensive Metabolic Panel (01/23/17 17:49) Creatine Kinase (Cpk) (01/23/17 17:49) Prothrombin Time / Inr (Pt) (01/23/17 17:49) Act Partial Throm Time (Ptt) (01/23/17 17:49) Troponin I (01/23/17 17:49) Thyroid Stimulating Hormone (01/23/17 17:49) Urinalysis - C+S If Indicated (01/23/17 17:49) Lactic Acid Sepsis Protocol (01/23/17 17:49) Chest, Single Ap (01/23/17 17:49) Ct Brain W/O Iv Contrast(Rout) (01/23/17 17:49) Blood Glucose (01/23/17 17:49) Ecg Monitoring (01/23/17 17:49) Iv Access Insert/Monitor (01/23/17 17:49) Oximetry (01/23/17 17:49) Sodium Chloride 0.9% Flush (Ns Flush) (01/23/17 18:00) Drug Screen, Random Urine (01/23/17 17:49) Tylenol (Acetaminophen) (01/23/17 17:49) Salicylates (Aspirin) (01/23/17 17:49) Vascular Access Team Consult/P PRN (01/23/17 18:58) Vascular Poc Ultrasound (01/23/17 ) ^ Straight Catheter (01/23/17 21:07) Urine Culture (01/23/17 21:19) Metoprolol Tartrate (Lopressor) (01/23/17 22:30) Ed Discharge Order (01/23/17 22:35) Ondansetron Odt (Zofran Odt) (01/24/17 02:30) Diet Regular Basic (01/24/17 Breakfast) Electrocardiogram (01/23/17 ) Labs Laboratory Tests Test 01/23/17 19:15 01/23/17 21:19 White Blood Count 6.9 TH/MM3 Red Blood Count 2.99 MIL/MM3 Hemoglobin 10.3 GM/DL Hematocrit 29.7 % Mean Corpuscular Volume 99.3 FL Mean Corpuscular Hemoglobin 34.6 PG Mean Corpuscular Hemoglobin Concent 34.8 % Red Cell Distribution Width 12.9 % Platelet Count 431 TH/MM3 Mean Platelet Volume 6.5 FL Neutrophils (%) (Auto) 54.5 % Lymphocytes (%) (Auto) 25.7 % Monocytes (%) (Auto) 13.0 % Eosinophils (%) (Auto) 5.6 % Basophils (%) (Auto) 1.2 % Neutrophils # (Auto) 3.8 TH/MM3 Lymphocytes # (Auto) 1.8 TH/MM3 Monocytes # (Auto) 0.9 TH/MM3 Eosinophils # (Auto) 0.4 TH/MM3 Basophils # (Auto) 0.1 TH/MM3 CBC Comment DIFF FINAL Differential Comment Prothrombin Time 11.7 SEC Prothromb Time International Ratio 1.1 RATIO Activated Partial Thromboplast Time 25.0 SEC Blood Urea Nitrogen 16 MG/DL Creatinine 1.02 MG/DL Random Glucose 101 MG/DL Total Protein 7.1 GM/DL Albumin 3.0 GM/DL Calcium Level 9.9 MG/DL Alkaline Phosphatase 74 U/L Aspartate Amino Transf (AST/SGOT) 40 U/L Alanine Aminotransferase (ALT/SGPT) 21 U/L Total Bilirubin 0.6 MG/DL Sodium Level 139 MEQ/L Potassium Level 3.4 MEQ/L Chloride Level 102 MEQ/L Carbon Dioxide Level 26.4 MEQ/L Anion Gap 11 MEQ/L Estimat Glomerular Filtration Rate 51 ML/MIN Lactic Acid Level 1.0 mmol/L Ammonia 12 MCMOL/L Total Creatine Kinase 29 U/L Troponin I 0.02 NG/ML Thyroid Stimulating Hormone 3rd Gen 2.500 uIU/ML Salicylates Level LESS THAN 1.7 MG/DL Acetaminophen Level LESS THAN 2.0 MCG/ML Urine Color YELLOW Urine Turbidity HAZY Urine pH 7.0 Urine Specific [place] 1.017 Urine Protein 30 mg/dL Urine Glucose (UA) NEG mg/dL Urine Ketones 10 mg/dL Urine Occult Blood TRACE Urine Nitrite NEG Urine Bilirubin NEG Urine Urobilinogen LESS THAN 2.0 MG/DL Urine Leukocyte Esterase LARGE Urine RBC 6 /hpf Urine WBC /hpf Urine WBC Clumps RARE Urine Squamous Epithelial Cells <1 /hpf Urine Bacteria MOD /hpf Urine Hyaline Casts 2 /lpf Urine Mucus FEW /lpf Microscopic Urinalysis Comment CATH-CULTURE IND Urine Opiates Screen NEG Urine Barbiturates Screen NEG Urine Amphetamines Screen NEG Urine Benzodiazepines Screen NEG Urine Cocaine Screen NEG Urine Cannabinoids Screen NEG MDM Medical Decision Making Medical Screen Exam Complete: Yes Emergency Medical Condition: Yes Differential Diagnosis UTI versus dementia versus dehydration versus metabolic derangement versus other. Narrative Course 89 YO F presents to the ED via EMS from her SNF for evaluation of AMS. Per the EMS report the patient is normally verbal and alert to self only. SNF staff noticed that the patient was nonverbal and nonresponsive ~ 40 minutes before arrival. On presentation the patient is looking around the room but closes her eyes in response to any questioning. She does not follow instructions. She is unable to provide any meaningful history. Patient is mildly tachycardic on presentation. Review of the history reveals this is chronic. Chest CTA B. Abdomen soft and nontender. Bilateral lower extremities and knee immobilizers in the right arm in a splint and a sling. The patient has palpable pulses in the distal extremities. EKG rate 112, sinus tachycardia with shortened MI interval. MI 106, QRS 82, QTC 431. Normal axis. No acute ST changes. Reviewed by Dr. Gates CXR unremarkable. CT head normal for patient this age for radiology read. Hemoglobin is 10.3. Improved from last visit. BUN 16. Cr 1.02 UA culture pending. Review of record reveals last urine culture did not grow any bacteria. Previous cultures grew pansensitive Escherichia coli. Patient is currently being treated for UTI. On recheck the patient is sitting up in bed. She ate a dinner. She is alert to self and situation. This is her baseline status. She is stable and discharged back to her SNF. Diagnosis Primary Impression: UTI (urinary tract infection) Qualified Codes: N39.0 - Urinary tract infection, site not specified Referrals: Primary Care Physician Additional Instructions: Resume medications as previously prescribed. Follow up with the primary care provider. Return to the ED for any urgent or emergent medical condition. Disposition: 03 DISCHARGE TO SNF Condition: Stable Oly Poole Jan 23, 2017 17:51
[2017-01-23] MEDS ORDERED: SODIUM CHLORIDE 0.9% FLUSH 5 ML FLUSH IV FLUSH PRN (18:00)
--- NOTE | 2017-01-23 18:22 | RADRPT ---
EXAM DATE/TIME: 01/23/2017 18:14 [facility] COMPARISON: CT BRAIN W/O CONTRAST, January 18, 2017, 18:36. INDICATIONS : Altered mental status; lethargy. RADIATION DOSE: 27.55 CTDIvol (mGy) MEDICAL HISTORY : Dementia. Cardiovascular disease Hypertension. SURGICAL HISTORY : None. ENCOUNTER: Initial ACUITY: 1 day PAIN SCALE: Non-responsive LOCATION: cranial TECHNIQUE: Multiple contiguous axial images were obtained of the head. Using automated exposure control and adj ustment of the mA and/or kV according to patient size, radiation dose was kept as low as reasonably a chievable to obtain optimal diagnostic quality images. DICOM format image data is available electro nically for review and comparison. FINDINGS: CEREBRUM: The ventricles are normal for age. No evidence of midline shift, mass lesion, hemorrhage or acute in farction. No extra-axial fluid collections are seen. POSTERIOR FOSSA: The cerebellum and brainstem are intact. The 4th ventricle is midline. The cerebellopontine angle i s unremarkable. EXTRACRANIAL: The visualized portion of the orbits is intact. SKULL: The calvaria is intact. No evidence of skull fracture. CONCLUSION: Normal examination for a patient of this age. Sb Boyce MD on January 23, 2017 at 18:19 Board Certified Radiologist. This report was verified electronically.
[2017-01-23] MEDS ORDERED: CRAN425C2 PO (18:41)
--- NOTE | 2017-01-23 18:58 | RADRPT ---
EXAM DATE/TIME: 01/23/2017 18:01 [facility] COMPARISON: CHEST SINGLE AP, January 18, 2017, 18:36. INDICATIONS : Syncopal episode and shortness of breath. MEDICAL HISTORY : Cardiovascular disease. Hypertension. Migraines. SURGICAL HISTORY : None. ENCOUNTER: Initial ACUITY: 1 day PAIN SCORE: Non-responsive. LOCATION: chest FINDINGS: A single view of the chest demonstrates the lungs to be symmetrically aerated without evidence of mas s, infiltrate or effusion. The cardiomediastinal contours are unremarkable. Proximal right humeral f racture stable. CONCLUSION: 1. No acute findings. Scoliosis. No active disease. Sb Boyce MD on January 23, 2017 at 18:56 Board Certified Radiologist. This report was verified electronically.
[2017-01-23 19:12] VITALS: BP 179/91; PULSE 108; RESP 20; O2SAT 100
[2017-01-23 19:52] LABS: AUTOMATED NEUTROPHIL # 3.8 TH/MM3 (1.8-7.7); BASOPHIL # 0.1 TH/MM3 (0-0.2); BASOPHIL % 1.2 % (0.0-2.0); EOSINOPHIL # 0.4 TH/MM3 (0-0.4); EOSINOPHIL % 5.6 % (0.0-4.0); HEMATOCRIT 29.7 % (35.0-46.0); HEMO FLAGS DIFF FINAL; LYMPH % 25.7 % (9.0-44.0); LYMPHOCYTE # 1.8 TH/MM3 (1.0-4.8); MEAN CELL VOLUME 99.3 FL (80.0-100.0); MEAN CORPUSCULAR HEMOGLOBIN 34.6 PG (27.0-34.0); MEAN CORPUSCULAR HGB CONC 34.8 % (32.0-36.0); NEUT % 54.5 % (16.0-70.0); PLATELET COUNT 431 TH/MM3 (150-450); RED BLOOD COUNT 2.99 MIL/MM3 (4.00-5.30); RED CELL DISTRIBUTION WIDTH 12.9 % (11.6-17.2); WHITE BLOOD COUNT 6.9 TH/MM3 (4.0-11.0)
[2017-01-23 19:53] LABS: INTERNATIONAL NORMALIZED RATIO 1.1 RATIO; PROTHROMBIN TIME - PATIENT 11.7 SEC (9.8-11.6)
[2017-01-23 20:07] LABS: ACETAMINOPHEN LESS THAN 2.0 MCG/ML (10.0-30.0); ALT (GPT) 21 U/L (10-53); ANION GAP 11 MEQ/L (5-15); AST (GOT) 40 U/L (15-37); BICARBONATE 26.4 MEQ/L (21.0-32.0); BLOOD UREA NITROGEN 16 MG/DL (7-18); CHLORIDE 102 MEQ/L (98-107); GLOMERULAR FILTRATION RATE 51 ML/MIN (>89); POTASSIUM 3.4 MEQ/L (3.5-5.1); SODIUM (NA) 139 MEQ/L (136-145)
[2017-01-23 20:23] LABS: ALKALINE PHOSPHATASE 74 U/L (45-117); TOTAL BILIRUBIN ADULT 0.6 MG/DL (0.2-1.0)
[2017-01-23 20:24] LABS: CREATINE KINASE 29 U/L (26-192)
[2017-01-23 21:44] VITALS: BP 160/94; PULSE 110; RESP 18; O2SAT 97
[2017-01-23 22:28] LABS: BACTERIA, URINE MOD /hpf; BLOOD, URINE TRACE (NEG); GLUCOSE,URINE NEG (NEG); HYALINE CAST, URINE 2 /lpf (RARE); KETONE, URINE 10 mg/dL (NEG); MUCUS URINE FEW /lpf (OCC); NITRITE,URINE NEG (NEG); SQUAMOUS EPITHELIAL CELL URINE <1 /hpf (0-5); URINE COLOR YELLOW (YELLW/STRAW)
[2017-01-23 22:29] LABS: COMMENT (UR) CATH-CULTURE IND; CULTURE IF INDICATED CATH CULTURE IND
[2017-01-23] MEDS ORDERED: METOPROLOL TARTRATE 100 MG TAB PO ONE (22:30)
[2017-01-23] MEDS ORDERED: METOPROLOL SUCCINATE 50 MG EXTENDED RELEASE TAB PO ONE (22:30)
--- NOTE | 2017-01-23 22:42 | PD ---
Data Data Last Documented VS Vital Signs Date Time Temp Pulse Resp B/P (MAP) Pulse Ox O2 Delivery O2 Flow Rate FiO2 01/23/17 21:44 110 18 160/94 (116) 97 Room Air 01/23/17 19:12 2.00 01/23/17 17:50 98.9 Orders Orders Ammonia (01/23/17 17:49) Complete Blood Count With Diff (01/23/17 17:49) Comprehensive Metabolic Panel (01/23/17 17:49) Creatine Kinase (Cpk) (01/23/17 17:49) Prothrombin Time / Inr (Pt) (01/23/17 17:49) Act Partial Throm Time (Ptt) (01/23/17 17:49) Troponin I (01/23/17 17:49) Thyroid Stimulating Hormone (01/23/17 17:49) Urinalysis - C+S If Indicated (01/23/17 17:49) Lactic Acid Sepsis Protocol (01/23/17 17:49) Chest, Single Ap (01/23/17 17:49) Ct Brain W/O Iv Contrast(Rout) (01/23/17 17:49) Blood Glucose (01/23/17 17:49) Ecg Monitoring (01/23/17 17:49) Iv Access Insert/Monitor (01/23/17 17:49) Oximetry (01/23/17 17:49) Sodium Chloride 0.9% Flush (Ns Flush) (01/23/17 18:00) Drug Screen, Random Urine (01/23/17 17:49) Tylenol (Acetaminophen) (01/23/17 17:49) Salicylates (Aspirin) (01/23/17 17:49) Vascular Access Team Consult/P PRN (01/23/17 18:58) Vascular Poc Ultrasound (01/23/17 ) ^ Straight Catheter (01/23/17 21:07) Urine Culture (01/23/17 21:19) Metoprolol Tartrate (Lopressor) (01/23/17 22:30) Ed Discharge Order (01/23/17 22:35) Labs Laboratory Tests Test 01/23/17 19:15 01/23/17 21:19 White Blood Count 6.9 TH/MM3 Red Blood Count 2.99 MIL/MM3 Hemoglobin 10.3 GM/DL Hematocrit 29.7 % Mean Corpuscular Volume 99.3 FL Mean Corpuscular Hemoglobin 34.6 PG Mean Corpuscular Hemoglobin Concent 34.8 % Red Cell Distribution Width 12.9 % Platelet Count 431 TH/MM3 Mean Platelet Volume 6.5 FL Neutrophils (%) (Auto) 54.5 % Lymphocytes (%) (Auto) 25.7 % Monocytes (%) (Auto) 13.0 % Eosinophils (%) (Auto) 5.6 % Basophils (%) (Auto) 1.2 % Neutrophils # (Auto) 3.8 TH/MM3 Lymphocytes # (Auto) 1.8 TH/MM3 Monocytes # (Auto) 0.9 TH/MM3 Eosinophils # (Auto) 0.4 TH/MM3 Basophils # (Auto) 0.1 TH/MM3 CBC Comment DIFF FINAL Differential Comment Prothrombin Time 11.7 SEC Prothromb Time International Ratio 1.1 RATIO Activated Partial Thromboplast Time 25.0 SEC Blood Urea Nitrogen 16 MG/DL Creatinine 1.02 MG/DL Random Glucose 101 MG/DL Total Protein 7.1 GM/DL Albumin 3.0 GM/DL Calcium Level 9.9 MG/DL Alkaline Phosphatase 74 U/L Aspartate Amino Transf (AST/SGOT) 40 U/L Alanine Aminotransferase (ALT/SGPT) 21 U/L Total Bilirubin 0.6 MG/DL Sodium Level 139 MEQ/L Potassium Level 3.4 MEQ/L Chloride Level 102 MEQ/L Carbon Dioxide Level 26.4 MEQ/L Anion Gap 11 MEQ/L Estimat Glomerular Filtration Rate 51 ML/MIN Lactic Acid Level 1.0 mmol/L Ammonia 12 MCMOL/L Total Creatine Kinase 29 U/L Troponin I 0.02 NG/ML Thyroid Stimulating Hormone 3rd Gen 2.500 uIU/ML Salicylates Level LESS THAN 1.7 MG/DL Acetaminophen Level LESS THAN 2.0 MCG/ML Urine Color YELLOW Urine Turbidity HAZY Urine pH 7.0 Urine Specific [place] 1.017 Urine Protein 30 mg/dL Urine Glucose (UA) NEG mg/dL Urine Ketones 10 mg/dL Urine Occult Blood TRACE Urine Nitrite NEG Urine Bilirubin NEG Urine Urobilinogen LESS THAN 2.0 MG/DL Urine Leukocyte Esterase LARGE Urine RBC 6 /hpf Urine WBC /hpf Urine WBC Clumps RARE Urine Squamous Epithelial Cells <1 /hpf Urine Bacteria MOD /hpf Urine Hyaline Casts 2 /lpf Urine Mucus FEW /lpf Microscopic Urinalysis Comment CATH-CULTURE IND MDM Supervised Visit with ABHINAV: Yes Narrative Course The history, exam, and medical decision-making in the associated mid-level provider note were completed with my assistance. I reviewed and agree with the findings presented. I attest that I had a [id number] encounter with the patient on the same day, and personally performed and documented my assessment and findings in the medical record. *My assessment and Findings: 89 year-old woman, brought in for altered mental status from the senior living. Currently recovering from some injuries. Looks well. No evidence of significant infection. She is currently being treated for UTI. She has some pyuria. We'll send for culture. Diagnosis Primary Impression: UTI (urinary tract infection) Qualified Codes: N39.0 - Urinary tract infection, site not specified Referrals: Primary Care Physician Additional Instruction: Resume medications as previously prescribed. Follow up with the primary care provider. Return to the ED for any urgent or emergent medical condition. Disposition: 01 DISCHARGE HOME Condition: Stable Suman Gates MD Jan 23, 2017 22:42
[2017-01-24 01:00] VITALS: BP 127/78; PULSE 101; RESP 16; O2SAT 99
[2017-01-24] MEDS ORDERED: ONDANSETRON ODT 4 MG TAB PO ONE (02:30)
[2017-01-24 06:36] VITALS: BP 145/67; PULSE 110; RESP 16; O2SAT 97
[2017-01-24 10:11] VITALS: BP 143/71; TEMP 97.8
--- NOTE | 2017-01-25 21:06 | EKG ---
Date Performed: 01/23/2017 Time Performed: 21:28:20 PTAGE: 89 years EKG: SINUS TACHYCARDIA WITH SHORT TX INTERVAL MODERATE ST DEPRESSION ABNORMAL ECG NO PREVIOUS TRACING DOCTOR: Aristeo Peraza Interpretating Date/Time 01/25/2017 20:57:13
== END 2017-01-24 10:11 | disposition home or self-care (01) ==
LOC: NEPE 17:36 → NEPD 01-24 10:11
DX: N39.0 Urinary tract infection, site not specified (principal); B96.89 Other specified bacterial agents as the cause of diseases classified elsewhere; B95.2 Enterococcus as the cause of diseases classified elsewhere; R00.0 Tachycardia, unspecified; R94.31 Abnormal electrocardiogram [ECG] [EKG]; M41.9 Scoliosis, unspecified; F03.90 Unspecified dementia, unspecified severity, without behavioral disturbance, psychotic disturbance, mood disturbance, and anxiety; I10 Essential (primary) hypertension; Z79.899 Other long term (current) drug therapy
CPT/HCPCS: 70450; 71010; 80053; 80307; 81001; 82140; 82550; 83605; 84443; 84484; 85025; 85610; 85730; 87077; 87086; 87186; 93005; 99285